=== PATIENT | female | born 1980 | race Caucasian/White ===

== ENCOUNTER 2017-01-30 20:30 | Emergency (ER) | payer OTHER ==
[~2017-01-30] VITALS: Ht 167.6 cm; Wt 82.3 kg
[~2017-01-30 20:30] MED LIST: ESTRADIOL1 EACH TD; EXCEDRIN MIGRA1 EAC2 PO; GUMMI BEAR MUL1 EACH PO; LEXAPRO10 MG PO; MAXALT10 MG PO; MOTRIN IB200 MG PO; NAPROXEN500 MG PO; NORCO 5-325 TA1 EACH PO; PERCOCET 5-3251 EACH PO; QUASENSE1 EACH PO; TRAMADOL HCL50 MG PO
[2017-01-30] MEDS ORDERED: LEXAPRO10 MG PO (20:54)
--- OUTSIDE RECORDS SUMMARY | 2017-01-30 21:17 | XMS ---
Demographics + + + | Address | [address] | | | [place] [address] | + + + | Preferred Language | Unknown | + + + | Marital Status | Unknown | + + + | Gnosticism Affiliation | Unknown | + + + | Race | Unknown | + + + | Ethnic Group | Unknown | + + + Author + + + | Author | [facility] | + + + | Organization | [facility] | + + + | Address | [address] | | | [place] [address] | + + + | Phone | | + + + Care Team Providers + + + + | Care Inserter Promotional Item Name | Role | Phone | + + + + Unavailable | Unavailable | + + + + PROBLEMS +---------+ + + +--------+ + + | Type | Condition | ICD9-CM | [id number] | Onset | Condition | SNOMED | | | | Code | Code | Dates | Status | Code | +---------+ + + +--------+ + + | Problem | Encounter | Z34.90 | | | Active | [id number] | | | for | | | | | | | | supervisio | | | | | | | | n of | | | | | | | | normal | | | | | | | | | | | | | | +---------+ + + +--------+ + + | Problem | Adnexal | N94.9 | | | Active | [id number] | | | mass | | | | | | +---------+ + + +--------+ + + | Problem | Abnormal | N93.9 | | | Active | [id number] | | | uterine | | | | | 9100 | | | bleeding | | | | | | +---------+ + + +--------+ + + ALLERGIES Unknown Allergies SOCIAL HISTORY No smoking Hx information available PLAN OF CARE VITAL SIGNS MEDICATIONS Unknown Medications RESULTS No Results PROCEDURES No Known procedures IMMUNIZATIONS No Known Immunizations"
--- OUTSIDE RECORDS SUMMARY | 2017-01-30 21:17 | XMS ---
Demographics + + + | Address | [address] | | | [place] [address] | + + + | Preferred Language | Unknown | + + + | Marital Status | Unknown | + + + | Yazidism Affiliation | Unknown | + + + | Race | Unknown | + + + | Ethnic Group | Unknown | + + + Author + + + | Author | [facility] | + + + | Organization | [facility] | + + + | Address | [address] | | | [place] [address] | + + + | Phone | | + + + Care Team Providers + + + + | Care Business Assistant Name | Role | Phone | + + + + Unavailable | Unavailable | + + + + PROBLEMS +---------+ + + +--------+ + + | Type | Condition | ICD9-CM | VRZ73-JB | Onset | Condition | SNOMED | | | | Code | Code | Dates | Status | Code | +---------+ + + +--------+ + + | Problem | Adnexal | N94.9 | | | Active | [id number] | | | mass | | | | | | +---------+ + + +--------+ + + | Problem | Abnormal | N93.9 | | | Active | [id number] | | | uterine | | | | | 9100 | | | bleeding | | | | | | +---------+ + + +--------+ + + ALLERGIES Unknown Allergies SOCIAL HISTORY No smoking Hx information available PLAN OF CARE VITAL SIGNS MEDICATIONS Unknown Medications RESULTS No Results PROCEDURES No Known procedures IMMUNIZATIONS No Known Immunizations"
--- OUTSIDE RECORDS SUMMARY | 2017-01-30 21:17 | XMS ---
Demographics + + + | Address | [address] | | | [place] [address] | + + + | Preferred Language | Unknown | + + + | Marital Status | Unknown | + + + | Uatsdin Affiliation | Unknown | + + + | Race | Unknown | + + + | Ethnic Group | Unknown | + + + Author + + + | Author | [facility] | + + + | Organization | [facility] | + + + | Address | [address] | | | [place] [address] | + + + | Phone | | + + + Care Team Providers + + + + | Care Er Rn Name | Role | Phone | + + + + Unavailable | Unavailable | + + + + PROBLEMS +---------+ + + +--------+ + + | Type | Condition | ICD9-CM | [id number] | Onset | Condition | SNOMED | | | | Code | Code | Dates | Status | Code | +---------+ + + +--------+ + + | Problem | Encounter | Z34.90 | | | Active | [id number] | | | for | | | | | | | | supervisio | | | | | | | | n of | | | | | | | | normal | | | | | | | | | | | | | | +---------+ + + +--------+ + + | Problem | Adnexal | N94.9 | | | Active | [id number] | | | mass | | | | | | +---------+ + + +--------+ + + | Problem | Abnormal | N93.9 | | | Active | [id number] | | | uterine | | | | | 9100 | | | bleeding | | | | | | +---------+ + + +--------+ + + ALLERGIES Unknown Allergies SOCIAL HISTORY No smoking Hx information available PLAN OF CARE VITAL SIGNS MEDICATIONS Unknown Medications RESULTS No Results PROCEDURES No Known procedures IMMUNIZATIONS No Known Immunizations"
--- OUTSIDE RECORDS SUMMARY | 2017-01-30 21:17 | XMS ---
Demographics + + + | Address | [address] | | | [place] [address] | + + + | Preferred Language | Unknown | + + + | Marital Status | Unknown | + + + | Synagogue Affiliation | Unknown | + + + | Race | Unknown | + + + | Ethnic Group | Unknown | + + + Author + + + | Author | [facility] | + + + | Organization | [facility] | + + + | Address | [address] | | | [place] [address] | + + + | Phone | | + + + Care Team Providers + + + + | Care Caser Shoe Parts Name | Role | Phone | + + + + Unavailable | Unavailable | + + + + PROBLEMS +---------+ + + +--------+ + + | Type | Condition | ICD9-CM | PRR01-TG | Onset | Condition | SNOMED | | | | Code | Code | Dates | Status | Code | +---------+ + + +--------+ + + | Problem | Encounter | Z34.90 | | | Active | [id number] | | | for | | | | | | | | supervisio | | | | | | | | n of | | | | | | | | normal | | | | | | | | | | | | | | +---------+ + + +--------+ + + | Problem | Adnexal | N94.9 | | | Active | 360748861 | | | mass | | | | | | +---------+ + + +--------+ + + | Problem | Abnormal | N93.9 | | | Active | [id number] | | | uterine | | | | | 9100 | | | bleeding | | | | | | +---------+ + + +--------+ + + ALLERGIES Unknown Allergies SOCIAL HISTORY No smoking Hx information available PLAN OF CARE VITAL SIGNS MEDICATIONS Unknown Medications RESULTS No Results PROCEDURES No Known procedures IMMUNIZATIONS No Known Immunizations"
--- OUTSIDE RECORDS SUMMARY | 2017-01-30 21:17 | XMS ---
Demographics + + + | Address | [address] | | | [place] [address] | + + + | Preferred Language | Unknown | + + + | Marital Status | Unknown | + + + | Faith Affiliation | Unknown | + + + | Race | Unknown | + + + | Ethnic Group | Unknown | + + + Author + + + | Author | [facility] | + + + | Organization | [facility] | + + + | Address | [address] | | | [place] [address] | + + + | Phone | | + + + Care Team Providers + + + + | Care Apartment Property Manager Name | Role | Phone | + + + + Unavailable | Unavailable | + + + + PROBLEMS +---------+ + + +--------+ + + | Type | Condition | ICD9-CM | CPS10-AS | Onset | Condition | SNOMED | | | | Code | Code | Dates | Status | Code | +---------+ + + +--------+ + + | Problem | Encounter | Z34.90 | | | Active | [id number] | | | for | | | | | | | | supervisio | | | | | | | | n of | | | | | | | | normal | | | | | | | | | | | | | | +---------+ + + +--------+ + + | Problem | Adnexal | N94.9 | | | Active | 000082275 | | | mass | | | | | | +---------+ + + +--------+ + + | Problem | Abnormal | N93.9 | | | Active | [id number] | | | uterine | | | | | 9100 | | | bleeding | | | | | | +---------+ + + +--------+ + + ALLERGIES Unknown Allergies SOCIAL HISTORY No smoking Hx information available PLAN OF CARE VITAL SIGNS MEDICATIONS Unknown Medications RESULTS No Results PROCEDURES No Known procedures IMMUNIZATIONS No Known Immunizations"
--- OUTSIDE RECORDS SUMMARY | 2017-01-30 21:17 | XMS ---
Demographics + + + | Address | [address] | | | [place] [address] | + + + | Preferred Language | Unknown | + + + | Marital Status | Unknown | + + + | Protestant Affiliation | Unknown | + + + | Race | Unknown | + + + | Ethnic Group | Unknown | + + + Author + + + | Author | [facility] | + + + | Organization | [facility] | + + + | Address | [address] | | | [place] [address] | + + + | Phone | | + + + Care Team Providers + + + + | Care Associate Financial Analyst Name | Role | Phone | + + + + Unavailable | Unavailable | + + + + PROBLEMS +---------+ + + +--------+ + + | Type | Condition | ICD9-CM | AFC72-AO | Onset | Condition | SNOMED | | | | Code | Code | Dates | Status | Code | +---------+ + + +--------+ + + | Problem | Encounter | Z34.90 | | | Active | [id number] | | | for | | | | | | | | supervisio | | | | | | | | n of | | | | | | | | normal | | | | | | | | | | | | | | +---------+ + + +--------+ + + | Problem | Adnexal | N94.9 | | | Active | 460951904 | | | mass | | | | | | +---------+ + + +--------+ + + | Problem | Abnormal | N93.9 | | | Active | [id number] | | | uterine | | | | | 9100 | | | bleeding | | | | | | +---------+ + + +--------+ + + ALLERGIES Unknown Allergies SOCIAL HISTORY No smoking Hx information available PLAN OF CARE VITAL SIGNS MEDICATIONS Unknown Medications RESULTS No Results PROCEDURES No Known procedures IMMUNIZATIONS No Known Immunizations"
== END 2017-01-30 22:26 | disposition home or self-care (01) ==
LOC: ED 20:30
DX: O20.0 Threatened abortion (principal); Z3A.11 11 weeks gestation of pregnancy; F17.200 Nicotine dependence, unspecified, uncomplicated; Z87.442 Personal history of urinary calculi; Z91.038 Other insect allergy status; Z88.8 Allergy status to other drugs, medicaments and biological substances; Z79.899 Other long term (current) drug therapy; Z90.721 Acquired absence of ovaries, unilateral
CPT/HCPCS: 76801; 84702; 85025; 99284

== ENCOUNTER 2017-08-21 00:01 | Inpatient (IN) | payer OTHER ==
[~2017-08-21] VITALS: Ht 168.9 cm; Wt 91.0 kg
--- OUTSIDE RECORDS SUMMARY | ~2017-08-21 | XMS ---
Demographics + + + | Address | [address] | | | [place] [address] | + + + | Preferred Language | Unknown | + + + | Marital Status | Unknown | + + + | Gnosticist Affiliation | Unknown | + + + | Race | Unknown | + + + | Ethnic Group | Unknown | + + + Author + + + | Author | [facility] | + + + | Organization | [facility] | + + + | Address | [address] | | | [place] [address] | + + + | Phone | | + + + Care Team Providers + + + + | Care Bible Reader Name | Role | Phone | + + + + Unavailable | Unavailable | + + + + PROBLEMS +---------+ + + +--------+ + + | Type | Condition | ICD9-CM | GSW94-AI | Onset | Condition | SNOMED | | | | Code | Code | Dates | Status | Code | +---------+ + + +--------+ + + | Problem | Encounter | Z34.90 | | | Active | [id number] | | | for | | | | | | | | supervisio | | | | | | | | n of | | | | | | | | normal | | | | | | | | | | | | | | +---------+ + + +--------+ + + | Problem | Adnexal | N94.9 | | | Active | [id number] | | | mass | | | | | | +---------+ + + +--------+ + + | Problem | Abnormal | N93.9 | | | Active | [id number] | | | uterine | | | | | 9100 | | | bleeding | | | | | | +---------+ + + +--------+ + + ALLERGIES Unknown Allergies SOCIAL HISTORY No smoking Hx information available PLAN OF CARE VITAL SIGNS MEDICATIONS Unknown Medications RESULTS No Results PROCEDURES No Known procedures IMMUNIZATIONS No Known Immunizations"
--- OUTSIDE RECORDS SUMMARY | ~2017-08-21 | XMS ---
Demographics + + + | Address | [address] | | | [place] [address] | + + + | Preferred Language | Unknown | + + + | Marital Status | Unknown | + + + | Orthodox Affiliation | Unknown | + + + | Race | Unknown | + + + | Ethnic Group | Unknown | + + + Author + + + | Author | [facility] | + + + | Organization | [facility] | + + + | Address | [address] | | | [place] [address] | + + + | Phone | | + + + Care Team Providers + + + + | Care Field Return Repairer Name | Role | Phone | + + + + Unavailable | Unavailable | + + + + PROBLEMS +---------+ + + +--------+ + + | Type | Condition | ICD9-CM | ZCP27-ZJ | Onset | Condition | SNOMED | | | | Code | Code | Dates | Status | Code | +---------+ + + +--------+ + + | Problem | Encounter | Z34.90 | | | Active | [id number] | | | for | | | | | | | | supervisio | | | | | | | | n of | | | | | | | | normal | | | | | | | | | | | | | | +---------+ + + +--------+ + + | Problem | Adnexal | N94.9 | | | Active | 969147093 | | | mass | | | | | | +---------+ + + +--------+ + + | Problem | Abnormal | N93.9 | | | Active | [id number] | | | uterine | | | | | 9100 | | | bleeding | | | | | | +---------+ + + +--------+ + + ALLERGIES Unknown Allergies SOCIAL HISTORY No smoking Hx information available PLAN OF CARE VITAL SIGNS MEDICATIONS Unknown Medications RESULTS No Results PROCEDURES No Known procedures IMMUNIZATIONS No Known Immunizations"
--- OUTSIDE RECORDS SUMMARY | ~2017-08-21 | XMS ---
Demographics + + + | Address | [address] | | | [place] [address] | + + + | Preferred Language [...] | + + + | Organization | [facility] | + + + | Address | [address] | | | [place] [address] | + + + | Phone | | + + + Care Team Providers + + + + | Care Canvas Repairer Name | Role | Phone | + + + + Unavailable | Unavailable | + + + + PROBLEMS +---------+ + + +--------+ + + | Type | Condition | ICD9-CM | IQQ74-BF | Onset | Condition | SNOMED | | | | Code | Code | Dates | Status | Code | +---------+ + + +--------+ + + | Problem | Encounter | Z34.90 | | | Active | [id number] | | | for | | | | | | | | supervisio | | | | | | | | n of | | | | | | | | normal | | | | | | | | | | | | | | +---------+ + + +--------+ + + | Problem | Adnexal | N94.9 | | | Active | [id number] | | | mass | | | | | | +---------+ + + +--------+ + + | Problem | Abnormal | N93.9 | | | Active | [id number] | | | uterine | | | | | 9100 | | | bleeding | | | | | | +---------+ + + +--------+ + + ALLERGIES No Information SOCIAL HISTORY Never Assessed PLAN OF CARE VITAL SIGNS MEDICATIONS Unknown Medications RESULTS No Results PROCEDURES No Known procedures IMMUNIZATIONS No Known Immunizations MEDICAL (GENERAL) HISTORY + + +--------+ | Type | Description | Date | + + +--------+ | Medical History | Headaches (Menstrual | | | | migraines) | | + + +--------+ | Medical History | fibromyalgia | | + + +--------+ | Medical History | History of Herpes | | | | (outbreaks every couple | | | | months) | | + + +--------+ | Surgical History | knee arthroscopy (Left) | 2013 | + + +--------+ | Surgical History | knee arthroscopy (Right) | 2014 | + + +--------+ | Surgical History | D&C (Suction) | 09/2016 | + + +--------+"
[2017-08-21] MEDS ORDERED: TYLENOL EXTRA500 MG PO (05:52)
[2017-08-21] MEDS ORDERED: ZOVIRAX400 MG PO (05:53)
--- NOTE | 2017-08-21 08:40 | PR ---
[facility] [address] [place], [place] [address] Signed Progress Notes IP Datetime Report Generated by CPN: 08/21/2017 08:40 PROGRESS NOTES: [id number] Impression: Normal progression of labor Procedures: Intrauterine Pressure Catheter Plan: Continue present management VITAL SIGNS: [id number] Vital Signs: Reviewed; Within Normal Limits EXAM: [id number] Dilatation: 3.0 Effacement: 60 Station: -3 Uterine Contractions: every 2-5 minutes MEMBRANES: [id number] Membrane Status: Ruptured Amniotic Fluid Color: Meconium, Light ROM Note: AROM without difficulty, large amount thin meconium fluid. Comments: IUPC inserted, given O2, moved back to left side; doing better now Fetus A: [id number] FHR Baseline: 145 Variability: Moderate 6-25bpm Decelerations: Late; Variable Presentation: Vertex Comments on Fetus A: occasional decels Fetus B: [id number] Signing Physician: Angela Navarro MD Copies: ~ *Electronically Signed* 08/21/17 0840 ANGELA NAVARRO MD PATIENT NAME: BAZANANNE MARIE PROGRESS NOTE DATE OF : 78 PHYSICIAN: ANGELA NAVARRO MD RPT #: [id number] REPORT IS CONFIDENTIAL AND NOT TO BE RELEASED WITHOUT AUTHORIZATION
--- NOTE | 2017-08-21 10:55 | NUR ---
08/21/17 Wei5 Nelly Cárdenas 1045 PT ARRIVED AWAKE AND TALKING. DENIES PAIN AND NAUSEA. BABY TO CHEST WITH FBC RN AT BEDSIDE. VSS. SPINAL LEVEL AT L1. MINIMAL BLEEDING NOTED ON RISHABH PAD. RESP EVEN AND UNLABORED. IV INFUSING IN RIGHT WRIST WITH LR WITH 20 OF PIT.
--- NOTE | 2017-08-23 10:23 | PR ---
[facility] [place] [facility] [address] [place] [address] Signed PP Progress Notes Datetime Report Generated by CPN: 08/23/2017 10:23 SUBJECTIVE: [id number] Pain: Within normal limits Nausea/Vomiting: Denies Vital Signs: [id number] Vital Signs: Reviewed; Within Normal Limits Notable Details: PP Hgb/Hct = 10.1/29.1 EXAM: [id number] Abdomen/Uterus: Normal Lochia: Normal Extremities: Normal Incision: Normal IMPRESSION/PLAN/PROCEDURES: [id number] Impression: Normal progression Plan: Discharge Procedures: None Progress Notes: Doing well, wants to go home Signing Physician: Angela Navarro MD Copies: ~ *Electronically Signed* 08/23/17 1023 ANGELA NAVARRO MD PATIENT NAME: ANNE MARIE BAZAN PROGRESS NOTE DATE OF : 78 PHYSICIAN: ANGELA NAVARRO MD RPT #: [id number] REPORT IS CONFIDENTIAL AND NOT TO BE RELEASED WITHOUT AUTHORIZATION
--- NOTE | 2017-08-30 09:54 | OR ---
[facility] [address] [facility] [place] [address] Signed DATE OF OPERATION: 08/21/2017 SURGEON: Lonnie Almendarez MD PREOPERATIVE DIAGNOSES: Term , nonreassuring heart rate tracing, meconium and bradycardia. POSTOPERATIVE DIAGNOSES: Term , nonreassuring heart rate tracing, meconium and bradycardia. PROCEDURE: Primary low-transverse segment section. Delivery of live male . DEVELOPMENT GEOLOGIST: Melanie Carlson MD. ANESTHESIA: Epidural. ESTIMATED BLOOD LOSS: 750 mL. COMPLICATIONS: None. DRAINS: Weaver to bladder. FINDINGS: Live male , Apgars 8 and 9, weight 6 pounds 10 ounces. The baby was in vertex presentation with the cord wrapped around the foot and leg several times. There was anterior placenta. Normal uterus. Normal tubes and ovaries bilateral. DESCRIPTION OF PROCEDURE: The patient was brought to the operating room, placed in supine position. After adequate epidural anesthesia was obtained, she was prepped and draped in usual sterile fashion. A Pfannenstiel skin incision was made with a scalpel extended through the subcutaneous tissue with the scalpel and blunt dissection. The fascia was nicked with scalpel and extended in transverse fashion using curved scissors. The underlying abdominal musculature was bluntly and sharply from the fascia above and below the Electronically Signed By: LONNIE ALMENDAREZ MD 08/30/17 0954 PATIENT NAME: ANNE MARIE CORMIER OPERATIVE REPORT DATE OF : 78 REPORT #: [id number] PHYSICIAN: LONNIE ALMENDAREZ MD PCP: TONY TREVINO MD REPORT IS CONFIDENTIAL AND NOT TO BE RELEASED WITHOUT AUTHORIZATION [facility] [address] [place], [place] [address] Signed incision. The abdominal musculature was bluntly and sharply along the midline. Peritoneum was bluntly entered and then incision extended with finger dissection. The Royer self-retaining retractor was inserted into the incision and tightened in place. Lower uterine segment was identified and noted to be quite thin, but narrow lower down, so just slightly elevated the lower uterine segment. Skin incision was made with a scalpel. Allis Catron clamps were used to grasp the edges and elevate the lower uterine segment to help avoid the baby because of the thin lower segment and finger dissection opened the incision, which was then extended with finger dissection in transverse fashion. The infant was noted to be in vertex presentation. The 's head was delivered from the incision. The arms individually delivered and the rest of the infant easily delivered from the incision. Cord was noted to be wrapped around the leg and foot several times. This was unwrapped and removed. The cord was doubly clamped and cut. The infant's mouth and nose were gently suctioned with a bulb syringe. The was crying vigorously, passed off the table in good condition to awaiting ethanol operations manager. Cord gases were obtained. Placenta was already coming from the incisions, so the rest of the placenta was removed and uterine cavity explored a lap pad to remove any retained membranes. An angle stitch of 0 Monocryl was placed at one end of the incision and a running locking stitch of 0 Monocryl starting at the other end was used to close the incision. Before finishing closure, the right angle was noted to have excess bleeding. This was controlled with a ggnpgd-tn-iuaxs stitch of 0 Monocryl. After the first closure, a second running stitch of 0 Monocryl was used to imbricate the first layer. There was a small amount of bleeding in the left angle, which was controlled with an extra stitch of Monocryl and one in the midline also requiring xhvhwr-qk-elmzg stitch of 0 Monocryl. At this point, good hemostasis was noted. The entire pelvis was irrigated, suctioned and examined. Few superficial bleeding spots on the uterus were cauterized with the Bovie. Good hemostasis was obtained. The Royer retractor was removed and sheet of ACell placed over the lower uterine segment to help with healing. The anterior wall peritoneum was closed using running stitch of 2-0 Vicryl suture. The abdominal musculature was closed using interrupted stitches of 0 Vicryl suture. There was 1 perforating vessel in the upper fascia that was bleeding. This was controlled with a aemexo-pu-yqzhq stitch of 0 Vicryl suture. The entire pelvis was irrigated, suctioned, examined and superficial bleeding spots cauterized with the Bovie. When good hemostasis was obtained, powdered ACell was sprinkled over the abdominal musculature to help with healing. Then, the fascia closed using 2 running stitch of 0 Vicryl suture meeting in the midline. Subcutaneous tissue was irrigated, suctioned, examined and any bleeding spots cauterized with the Bovie. Subcutaneous tissue was then closed using interrupted stitches of 3-0 Vicryl suture and the skin reapproximated using skin clips. The patient tolerated the procedure well and went to recovery room in good condition. Sponge, needle, and instrument count were correct at the end of the procedure. Cord gases were sent to the lab and the placenta sent to pathology. Electronically Signed By: LONNIE ALMENDAREZ MD 08/30/17 0954 PATIENT NAME: ANNE MARIE CORMIER OPERATIVE REPORT DATE OF : 78 REPORT #: [id number] PHYSICIAN: LONNIE ALMENDAREZ MD PCP: TONY TREVINO MD REPORT IS CONFIDENTIAL AND NOT TO BE RELEASED WITHOUT AUTHORIZATION [address] [place] [address] Signed Lonnie Almendarez MD MJB/MODL /[id number] cc: Tony Trevino MD Copies: TONY TREVINO MD ~ Electronically Signed By: LONNIE ALMENDAREZ MD 08/30/17 0954 PATIENT NAME: LUNA ANNE MARIE BAZAN OPERATIVE REPORT DATE OF : 78 REPORT #: [id number] PHYSICIAN: LONNIE ALMENDAREZ MD PCP: TONY TREVINO MD REPORT IS CONFIDENTIAL AND NOT TO BE RELEASED WITHOUT AUTHORIZATION
== END 2017-08-23 13:05 | disposition home or self-care (01) | DRG 766 ==
LOC: FBC 00:01
PROVIDERS: ADMIT General Practice
PROC: 10D00Z1 Extraction of Products of Conception, Low, Open Approach (ICD-10-PCS; principal; 2017-08-21 09:49)
DX: O76 Abnormality in fetal heart rate and rhythm complicating labor and delivery (principal); O77.0 Labor and delivery complicated by meconium in amniotic fluid; Z3A.39 39 weeks gestation of pregnancy; Z37.0 Single live birth; O99.334 Smoking (tobacco) complicating childbirth; F17.210 Nicotine dependence, cigarettes, uncomplicated; O99.344 Other mental disorders complicating childbirth; F32.9 Major depressive disorder, single episode, unspecified
CPT/HCPCS: 01960; 01961; 36415; 82803; 85027; C1763; J1644; J2270; J2274; J2405; J2590; J3010; J7040; J7120

== ENCOUNTER 2019-03-20 05:13 | Emergency (ER) | payer OTHER ==
[~2019-03-20] VITALS: Ht 170.2 cm; Wt 88.5 kg
--- OUTSIDE RECORDS SUMMARY | ~2019-03-20 | XMS | Clinical Summary ---
Demographics + + + | Address | [address] | | | [place] [address] | + + + | Home Phone | | + + + | Preferred Language | Unknown | + + + | Marital Status | | + + + | Jainism Affiliation | 1013 | + + + | Race | Unknown | + + + | Ethnic Group | Unknown | + + + Author + + + | Author | [facility] | | | and [place] | + + + | Organization | [facility] | | | and [place] | + [...] Team Providers + +------+ + | Care Rehabilitation Tech Name | Role | Phone | + [...]
--- OUTSIDE RECORDS SUMMARY | ~2019-03-20 | XMS | Clinical Summary ---
Demographics + + + | Address | [address] | | | [place] [address] | + + + | Home Phone | | + + + | Preferred Language | Unknown | + + + | Marital Status | | + + + | Moravian Affiliation | 1013 | + + + | Race | Unknown | + + + | Ethnic Group | Unknown | + + + Author + + + | Author | [facility] | | | and [place] | + + + | Organization | [facility] | | | [...] Team Providers + +------+ + | Care Roofing Layer Name | Role | Phone | + [...]
--- OUTSIDE RECORDS SUMMARY | ~2019-03-20 | XMS | Clinical Summary ---
Demographics + + + | Address | [address] | | | [place] [address] | + + + | Home Phone | | + + + | Preferred Language | Unknown | + + + | Marital Status | | + + + | Alevism Affiliation | 1013 | + + + | Race | Unknown | + + + | Ethnic Group | Unknown | + + + Author + + + | Author | [facility] [employer] (Historical as of | | | 02-02-19) | + + + | Organization | [facility] [employer] (Historical as of | | | 02-02-19) | + + + | Address | Unknown | + + + | Phone | Unavailable | + + + Support + + + + + | Name | Relationship | Address | Phone | + + + + + | Elton Bach | ECON | [address] | | | | | [place] | | | | | [address] | | + + + + + Care Team Providers + +------+ + | Care Storage Architect Name | Role | Phone | [...] +------+-------+ + | MEDICAID | MEDICA | [id number] | | | [address] | | | ID | | | | [place] | | | [place] | | | | [address] | + +--------+ +------+-------+ + + +--------+ +--------+ + + | Guarantor Name | Accoun | Relation to | Date | Phone | Billing Address | | | t Type | Patient | of | | | | | | | | | | + +--------+ +--------+ + + | MARCIE BACH | Person | Self | [birth year] | Home: | [address] | | | [place] | | 1979 | [phone] | [place] | | | [place] | | | [phone] | [phone] | + +--------+ +--------+ + +
--- OUTSIDE RECORDS SUMMARY | ~2019-03-20 | XMS | Clinical Summary ---
Demographics + + + | Address | [address] | | | [place] [address] | + + + | Home Phone | | + + + | Preferred Language | Unknown | + + + | Marital Status | | + + + | Buddhism Affiliation | 1013 | + + + | Race | Unknown | + + + | Ethnic Group | Unknown | + + + Author + + + | Author | [employer] (Historical as of | | | 02-02-19) | + + + | Organization | [facility] [employer] (Historical as of | | | 02-02-19) | + + + | Address | Unknown | + + + | Phone | Unavailable | + + + Support + + + + + | Name | Relationship | Address | Phone | + + + + + | Elton Bach | ECON | [address] | | | | | [place] | | | | | [phone] | | + + + + + Care Team Providers + +------+ + | Care Swimming Pool Plasterer Helper Name | Role | Phone | + [...] +------+-------+ + | MEDICAID | MEDICA | [id number] | | | [address] | | | ID | | | | [place] | | | [place] | | | | [phone] | + +--------+ +------+-------+ + + +--------+ +--------+ + + | Guarantor Name | Accoun | Relation to | Date | Phone | Billing Address | | | t Type | Patient | of | | | | | | | | | | + +--------+ +--------+ + + | MARCIE BACH | Person | Self | [birth year] | Home: | [address] | | | [place] | | 1979 | [phone] | [place] | | | [place] | | | [phone] | [phone] | + +--------+ +--------+ + +
[~2019-03-20 05:13] MED LIST changes: +RIZATRIPTAN10 MG PO; +TYLENOL EXTRA500 MG PO; +ZOVIRAX400 MG PO
[2019-03-20] MEDS ORDERED: PRENATABS FA T1 EACH PO (05:23)
[2019-03-21] MEDS ORDERED: TYLENOL325 MG PO (09:55)
[2019-03-21] MEDS ORDERED: GABAPENTIN300 MG PO (10:08)
[2019-03-21] MEDS ORDERED: ESCITALOPRAM OX20 MG PO (17:04)
[2019-03-21] MEDS ORDERED: NORCO 5-325 TA1 EACH PO (17:08)
== END 2019-03-20 09:42 | disposition home or self-care (01) ==
LOC: ED 05:13
DX: O20.9 Hemorrhage in early pregnancy, unspecified (principal); F17.200 Nicotine dependence, unspecified, uncomplicated; Z87.442 Personal history of urinary calculi; Z91.030 Bee allergy status; Z88.8 Allergy status to other drugs, medicaments and biological substances; Z79.899 Other long term (current) drug therapy; Z3A.01 Less than 8 weeks gestation of pregnancy
CPT/HCPCS: 76801; 76817; 84702; 85025; 99284-25

== ENCOUNTER 2019-03-21 09:44 | Observation (INO) | payer OTHER ==
[~2019-03-21] VITALS: Ht 170.2 cm; Wt 88.5 kg
--- OUTSIDE RECORDS SUMMARY | ~2019-03-21 | XMS | Clinical Summary ---
Demographics + + + | Address | [address] | | | [place] [address] | + + + | Home Phone | | + + + | Preferred Language | Unknown | + + + | Marital Status | | + + + | Gnosticism Affiliation | 1013 | + + + | Race | Unknown | + + + | Ethnic Group | Unknown | + + + Author + + + | Author | [facility] | | | and [place] | + + + | Organization | [facility] | | | [...] Team Providers + +------+ + | Care Induction Heating Equipment Setter Name | Role | Phone | + [...]
--- OUTSIDE RECORDS SUMMARY | ~2019-03-21 | XMS | Clinical Summary ---
Demographics + + + | Address | [address] | | | [place] [address] | + + + | Home Phone | | + + + | Preferred Language | Unknown | + + + | Marital Status | | + + + | Rastafari Affiliation | 1013 | + + + | Race | Unknown | + + + | Ethnic Group | Unknown | + + + Author + + + | Author | [employer] (Historical as of | | | 02-02-19) | + + + | Organization | [facility] (Historical as of | | | 02-02-19) | + + + | Address | Unknown | + + + | Phone | Unavailable | + + + Support + + + + + | Name | Relationship | Address | Phone | + + + + + | Elton Bach | ECON | [address] | | | | | [place] | | | | | [address] | | + + + + + Care Team Providers + +------+ + | Care Shuttle Preparation Supervisor Name | Role | Phone | [...] | Vaccine: | | | | | Pneumococcal 19-64 | 8 | | | | (PPSV23 only) Medium | | | | | Risk (1 of 1 - | | | | | PPSV23) | | | | + + + [...] +------+-------+ + | MEDICAID | MEDICA | [id number] | | | [address] | | | ID | | | | [place] | | | [place] | | | | [phone] | + +--------+ +------+-------+ + + +--------+ +--------+ + + | Guarantor Name | Accoun | Relation to | Date | Phone | Billing Address | | | t Type | Patient | of | | | | | | | | | | + +--------+ +--------+ + + | MARCIE BACH | Person | Self | [birth year] | Home: | [address] | | | [place] | | 1979 | [phone] | [place] | | | [place] | | | [phone] | [phone] | + +--------+ +--------+ + +
[~2019-03-21 09:44] MED LIST changes: +PRENATABS FA T1 EACH PO
[2019-03-21] MEDS ORDERED: TYLENOL325 MG PO (09:55)
[2019-03-21] MEDS ORDERED: GABAPENTIN300 MG PO (10:08)
--- NOTE | 2019-03-21 10:30 | NUR ---
PT ARRIVED FROM DR. NAVARRO'S OFFICE FOR POSSIBLE EPTOPIC . PT CHANGES SELF INTO GOWN AND IS INDEPENDANT IN ROOM. STEADY ON FEET. PT REPORTS 8/10 CRAMPING PAIN. PIV STARTED, LABS DRAWN. ASSESSMENT DONE. NO RATE ON FLUIDS. MD CONSULTED. ORDERS CLARIFIED. BOLUS STARTED. ULTRASOUND TECHNITIAN WAITING FOR CALL WHEN PTS HAS FULL BLADDER. PT KNITTING. NO ADDITIONAL REQUESTS OR COMPLAINTS AT THIS TIME. CALL LIGHT WITHIN REACH.
--- NOTE | 2019-03-21 11:21 | NUR ---
PT CALL LIGHT ON. PT REPORTS SHE FEELS THAT HER BLADDER IS FULL. IMAGING CONTACTED FOR ULTRASOUND. THIS RN TO BEDSIDE. ORTHOSTATIC VITAL SIGNS TAKEN. PT NEEDED TO SIT DOWN DURING 3 MINUTE STANDING VITAL SIGNS SHE "FELT LIKE THE ROOM WAS SPINNING." PT TRANSFERED SELF TO WHEELCHAIR WITH SBA. PT TO IMAGING DEPARTMENT.
--- NOTE | 2019-03-21 11:26 | NUR ---
MD UPDATED ON PT CONDITION, ORTHOSTATIC VITAL SIGNS, LABS AND PTS PAIN RAITING. NO NEW ORDERS AT THIS TIME. REQUESTS A CALL BACK WHEN PT RETURNS FROM IMAGING.
--- NOTE | 2019-03-21 11:58 | NUR ---
PT BACK FROM ULTRASOUND. PT CONTINUES TO REPORT DIZZINESS. PT REPORTS 7/10 CRAMPING PAIN. WARM PACK PROVIDED. MD CALLED WITH UPDATE PER REQUEST. NO ADDITIONAL REQUESTS OR COMPLAINTS AT THIS TIME. CALL LIGHT WITHIN REACH.
--- NOTE | 2019-03-21 12:32 | NUR ---
THIS RN TO ROOM WITH MD FOR ROUNDS. PLAN FOR SURGERY TODAY. QUALITY CONTROL AUDITOR TO ROOM WITH DANIEL WIPES FOR WIPE DOWN. NO ADDITIONAL REQUESTS ORCOMPALITNS AT THIS TIME.
--- NOTE | 2019-03-21 12:48 | NUR ---
TO ROOM TO UPDATE PT. CONSENT FOR SURGERY SIGNED. OR FLUIDS HUNG. PRE PROCEEDURES CHECK LIST COMPLETED. PT REMOVES EARINGS AND CONTACTS. NONA LOGISTICS TECHNICIAN, HERE TO MEDICAL LAB SCIENTIST PT. NONA STATES NO CHG WIPE DOWN NEEDED. WIPE DOWN NOT COMPLETE. PT UP TO VOID. DIZZY AT TIMES. PT TO OR WITH MARY CASTELLANO.
--- NOTE | 2019-03-21 13:21 | NUR ---
PATIENT IN SURGERY. I&O DONE.
--- NOTE | 2019-03-21 14:40 | NUR ---
03/21/19 1440 Merna Lee 1408- PT ARRIVES TO PACU WITH AN OPA IN PLACE. PT'S RESP EVEN AND UNLABORED. OXYGEN SAT HIGH 90'S TO 100% ON 6L VIA MASK. PT SUCTIONED ON ARRIVAL BY BEBETO LAZARO CRNA. 1409- PT OPENS EYES. OPA REMOVED BY BEBETO LAZARO CRNA. PT IS NOT FOLLOWING COMMANDS AT THIS TIME AND SQUIRMING IN THE BED. 1425- PT EATING ICE CHIPS. TOLERATING WELL.
--- NOTE | 2019-03-21 15:06 | NUR ---
PATIENT ARRIVED BACK TO ROOM AT 1455, REPORT RECIEVED FROM TILTING HEAD BAND SAWYER KAYLYNN. PATIENT HAS X3 ABD SCOPE SITES COVERED WITH BANDAIDS, OLD DRAINAGE NOTED TO GOWN. PATIENT HAS MILD SEROUS VAGINAL SPOTTING ON LINENS, RISHABH PAD IN PLACE. PATIENT RATED ABD PAIN 7/10, DENIES NAUSEA.
--- NOTE | 2019-03-21 15:30 | NUR ---
PT RETURNED FROM PACU. PT REPORTS 8/10 PAIN. SEE MAR FOR MEDICATION GIVEN. FLUIDS STARTED (SEE MAR). ASSESSMENT DONE. SCD'S IN PLACE. PT TOLEARTING JELLO AND WATER AT THIS TIME. NO NAUSEA. CALL LIGHT WITHIN REACH. NO ADDITIONAL REQUESTS OR COMPLAINTS.
--- NOTE | 2019-03-21 16:10 | NUR ---
ASSESSMENT AND VITALS DUE. 1PA UP TO RESTROOM, SMALL AMOUNT OF RED DRAINAGE NOTED ON RISHABH PAD AND IN URINE. PT BACK TO BED. PT STEADY ON FEET. PT REPORTS 8/10 PAIN IN ABDOMEN. SEE MAR FOR MEDICATIONS GIVEN. PT TOELRATING CRACKERS AND JELLO, FOOD ORDER PLACED FOR PT. PT REQUESTS A NICOTENE PATCH. MD WILL BE CALLED AN UPDATED. NO ADDITIONAL REQUESTS OR COMPLAINS. CALL LIGHT WITHIN REACH.
--- NOTE | 2019-03-21 16:33 | NUR ---
CALLED AND UPDATED ON PT CONDITION. STATES HE WILL BE DOWN TO VISIT PT SOON.
--- NOTE | 2019-03-21 16:50 | OR ---
[facility] [address] [place], [place] [address] Signed DATE OF OPERATION: 03/21/2019 SURGEON: Lonnie Almendarez MD Patient of Dr. Almendarez. PREOPERATIVE DIAGNOSIS: First-trimester with pelvic pain and dizziness. POSTOPERATIVE DIAGNOSIS: First-trimester with pelvic pain and dizziness plus omental adhesions, left pelvic endometriosis and no evidence of tubal . PROCEDURE PERFORMED: Laparoscopy with lysis of omental adhesions. ROADSIDE MECHANIC: Dr. Thakur. ANESTHESIA: General. ESTIMATED BLOOD LOSS: 5 mL. SPECIMEN: None. DRAINS: None. FINDINGS: Vagina, slight blood. Cervix, thick and closed. No active bleeding. Uterus, normal size and shape. The anterior cul-de-sac was free of any endometriosis or adhesions. Posterior cul-de-sac was free of any blood or adhesions. Both fallopian tubes showed normal-appearing fimbriated end. No adhesions and no evidence of tubal along the entire length of each tube. The left ovary had evidence of endometriosis and was adherent to the left pelvic sidewall. There was also some deep endometriosis on the left pelvic sidewall caudal to the ovary. The right ovary appeared normal without any adhesions and showed a normal-appearing corpus luteum cyst. There were omental Electronically Signed By: LONNIE ALMENDAREZ MD 03/21/19 1650 PATIENT NAME: ANNE MARIE BAZAN OPERATIVE REPORT DATE OF : 78 REPORT #: [id number] PHYSICIAN: LONNIE ALMENDAREZ MD PCP: TONY TREVINO MD REPORT IS CONFIDENTIAL AND NOT TO BE RELEASED WITHOUT AUTHORIZATION [facility] [address] [place], [place] [address] Signed adhesions along the midline from just below the umbilicus to custodial to the symphysis. There was no bowel involved in the omental adhesions. No other masses or adhesions seen. COMPLICATIONS: None. DESCRIPTION OF OPERATION: The patient was brought into the operating room and placed in supine position. After adequate general anesthesia was obtained, she was prepped and draped in usual sterile fashion. A sponge stick was gently placed in the vagina and attention drawn to the abdomen. A skin incision was made with a scalpel after injecting the area with 0.25% Marcaine with epinephrine, 5 mm direct entry trocar and sleeve with the laparoscope attached was placed in the incision. The anterior abdominal wall elevated on both sides of the umbilicus and the trocar and sleeve entered the abdomen under direct visualization. Carbon dioxide was used to infuse the abdomen, was attached to the trocar so that as soon as the tip entered the abdomen, the gas would start flowing into the abdomen. Once the sleeve was in the abdomen, the trocar was removed and the 5 mm laparoscope placed through the sleeve. The above findings were noted. Two lateral ports were placed, one on each side and each one was placed after transilluminating the abdominal wall, injecting the area with 0.25% Marcaine with epinephrine making small skin incision and placing a 5 mm bladed trocar and sleeve through the abdominal wall under direct visualization. Each one was filled with balloon and trocar removed. The blunt graspers were placed through these twosleeves. The omental adhesions made visualizing the pelvis more difficult and so the omental adhesions were taken down with LigaSure bipolar [place] cautery forceps. With this taken down, the omentum was observed and noted to have good hemostasis. The entire pelvis was examined and the above findings noted. Care was taken to gently remove the uterus without trauma. No evidence of tubal was seen. No intraabdominal bleeding was noted and no attempt was made to dissect the deep endometriosis because of the . At this point, there was a minimal amount of bleeding in the infraumbilical incision, so this one was removed and with the laparoscope in the lateral incision, Amando-Coty fascial closure, probe was docked in the incision and 0 Vicryl placed through the fascia on either side under direct visualization and the fascia closed. The area was then observed and noted to have good hemostasis. The gas was allowed to escape from the abdomen and all instruments removed and the sleeve removed. Three skin incisions were closed using subcuticular stitches of 4-0 Vicryl. Sponge stick was removed from the vagina. The patient tolerated the procedure well and went to recovery room in good condition. Sponge, needle, and instrument counts were correct at the end of procedure. Electronically Signed By: LONNIE ALMENDAREZ MD 03/21/19 9727 PATIENT NAME: ANNE MARIE BAZAN OPERATIVE REPORT DATE OF : [birth year] REPORT #: [id number] PHYSICIAN: LONNIE ALMENDAREZ MD PCP: TONY TREVINO MD REPORT IS CONFIDENTIAL AND NOT TO BE RELEASED WITHOUT AUTHORIZATION [address] [address] Signed Lonnie Almendarez MD MJB/MODL /[id number] cc: Tony Trevino MD Copies: TONY TREVINO MD ~ Electronically Signed By: LONNIE ALMENDAREZ MD 03/21/19 1650 PATIENT NAME: ANNE MARIE BAZAN OPERATIVE REPORT DATE OF : [birth year] REPORT #: [id number] PHYSICIAN: LONNIE ALMENDAREZ MD PCP: TONY TREVINO MD REPORT IS CONFIDENTIAL AND NOT TO BE RELEASED WITHOUT AUTHORIZATION
[2019-03-21] MEDS ORDERED: ESCITALOPRAM OX20 MG PO (17:04)
[2019-03-21] MEDS ORDERED: NORCO 5-325 TA1 EACH PO (17:08)
--- NOTE | 2019-03-21 17:17 | NUR ---
MED REC COMPLETE
--- NOTE | 2019-03-21 17:32 | NUR ---
PATIENT SITTING UP IN BED. FINAL VITAL SIGNS WERE OBTAINED PRIOR TO DISCHARGE FROM THE UNIT
--- NOTE | 2019-03-21 17:34 | NUR ---
PT READY FOR DISCHARGE. PT UP TO DRESS SELF. PT STEADY ON FEET. PTS FRIEND ARRIVED. PT STATES PHARMCIST HAS REVIEWED ALL MEDICATIONS WITH HER. PT VERBLAIZES UNDERSTANDING OF MEDICATIONS AND STATES HER QUESTIONS HAVE BEEN ANSWERED. DISCHARGE INSTRUCTIOSN REVEIWED WITH PT. PT VERBALIES UNDERSTANDING AND STATES HER QUESTIONS HAVE BEEN ANSWERED. VITALS TAKEN BY MONI PALOMO. PIV DC'D PER PROTOCOL. GAUZE AND COBAN APPLIED. PT WAITING FOR DINNER. NO ADDITIONAL REQUESTS OR COMPLAINTS.
--- NOTE | 2019-03-21 17:36 | NUR ---
PT CALL [facility] FOR WOMENT ON. DINNER HERE. PT READY FOR DISCHARGE. PT TRANSFERES SELF TO WHEELCHAIR AND IS WHEELED FROM MED/SURG. BELONGINS AND DISCHARGE INSRUCTIONS WITH PT.
== END 2019-03-21 17:40 | disposition home or self-care (01) ==
LOC: MS 09:44
PROVIDERS: ADMIT General Practice
PROC: 0DNU4ZZ Release Omentum, Percutaneous Endoscopic Approach (ICD-10-PCS; principal; 2019-03-21 12:30)
DX: O99.611 Diseases of the digestive system complicating pregnancy, first trimester (principal); K66.0 Peritoneal adhesions (postprocedural) (postinfection); Z3A.00 Weeks of gestation of pregnancy not specified; N80.1 Endometriosis of ovary; N80.8 Other endometriosis; O99.331 Smoking (tobacco) complicating pregnancy, first trimester; F17.210 Nicotine dependence, cigarettes, uncomplicated; O99.341 Other mental disorders complicating pregnancy, first trimester; F32.9 Major depressive disorder, single episode, unspecified; O98.511 Other viral diseases complicating pregnancy, first trimester; B00.9 Herpesviral infection, unspecified; O99.89 Other specified diseases and conditions complicating pregnancy, childbirth and the puerperium; M79.7 Fibromyalgia; O99.351 Diseases of the nervous system complicating pregnancy, first trimester; G43.909 Migraine, unspecified, not intractable, without status migrainosus; Z88.8 Allergy status to other drugs, medicaments and biological substances; Z79.899 Other long term (current) drug therapy
CPT/HCPCS: 00840; 76801; 76817; 84702; 85025; G0378; J0131; J1100; J1885; J2250; J2270; J2405; J2704; J3010; J7120

== ENCOUNTER 2019-03-24 11:50 | Emergency (ER) | payer OTHER ==
[~2019-03-24] VITALS: Ht 170.2 cm; Wt 88.5 kg
--- OUTSIDE RECORDS SUMMARY | ~2019-03-24 | XMS | Clinical Summary ---
Demographics + + + | Address | [address] | | | [place] [address] | + + + | Home Phone | | + + + | Preferred Language | Unknown | + + + | Marital Status | | + + + | Spiritism Affiliation | 1013 | + + + | Race | Unknown | + + + | Ethnic Group | Unknown | + + + Author + + + | Author | [facility] (Historical as of | | | 02-02-19) | + + + | Organization | [facility] (Historical as of | | | 02-02-19) | + + + | Address | Unknown | + + + | Phone | Unavailable | + + + Support + + + + + | Name | Relationship | Address | Phone | + + + + + | Elton Bach | ECON | [address] | | | | | [place] | | | | | [phone] | | + + + + + Care Team Providers + +------+ + | Care Bilingual Research Interviewer Name | Role | Phone | + [...] +------+-------+ + | MEDICAID | MEDICA | [id number] | | | [address] | | | ID | | | | [place] | | | [place] | | | | [phone] | + +--------+ +------+-------+ + + +--------+ +--------+ + + | Guarantor Name | Accoun | Relation to | Date | Phone | Billing Address | | | t Type | Patient | of | | | | | | | | | | + +--------+ +--------+ + + | MARCIE BACH | Person | Self | [birth year] | Home: | [address] | | | [place] | | 1979 | [phone] | [place] | | | [place] | | | [phone] | [phone] | + +--------+ +--------+ + +
--- OUTSIDE RECORDS SUMMARY | ~2019-03-24 | XMS | Clinical Summary ---
Demographics + + + | Address | [address] | | | [place] [address] | + + + | Home Phone | | + + + | Preferred Language | Unknown | + + + | Marital Status | | + + + | Islam Affiliation | 1013 | + + + [...] Team Providers + +------+ + | Care Glaciologist Name | Role | Phone | + [...]
--- OUTSIDE RECORDS SUMMARY | ~2019-03-24 | XMS | Clinical Summary ---
Demographics + + + | Address | [address] | | | [place] [address] | + + + | Home Phone | | + + + | Preferred Language | Unknown | + + + | Marital Status | | + + + | Buddhism Affiliation | 1013 | + + + | Race | Unknown | + + + | Ethnic Group | Unknown | + + + Author + + + | Author | [employer] [facility] (Historical as of | | | 02-02-19) | + + + | Organization | [facility] (Historical as of | | | 02-02-19) | + + + | Address | Unknown | + + + | Phone | Unavailable | + + + Support + + + + + | Name | Relationship | Address | Phone | + + + + + | Elton Bach | ECON | [address] | | | | | [place] | | | | | [phone] | | + + + + + Care Team Providers + +------+ + | Care Branding Machine Operator Name | Role | Phone [...] +------+-------+ + | MEDICAID | MEDICA | [id number] | | | [address] | | | ID | | | | [place] | | | [place] | | | | [address] | + +--------+ +------+-------+ + + +--------+ +--------+ + + | Guarantor Name | Accoun | Relation to | Date | Phone | Billing Address | | | t Type | Patient | of | | | | | | | | | | + +--------+ +--------+ + + | MARCIE BACH | Person | Self | [birth year] | Home: | [address] | | | [place] | | 1979 | [phone] | [place] | | | [place] | | | [phone] | [phone] | + +--------+ +--------+ + +
--- OUTSIDE RECORDS SUMMARY | ~2019-03-24 | XMS | Clinical Summary ---
Demographics + + + | Address | [address] | | | [place] [address] | + + + | Home Phone | | + + + | Preferred Language | Unknown | + + + | Marital Status | | + + + | Oriental Orthodox Affiliation | 1013 | + + + | Race | Unknown | + + + | Ethnic Group | Unknown | + + + Author + + + | Author | [facility] | | | and [place] | + + + | Organization | [facility] | | | [...] Team Providers + +------+ + | Care International Nurse Name | Role | Phone | + [...]
[~2019-03-24 11:50] MED LIST changes: +ESCITALOPRAM OX20 MG PO; +GABAPENTIN300 MG PO; +TYLENOL325 MG PO
--- OUTSIDE RECORDS SUMMARY | 2019-03-24 11:52 | XMS ---
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 Bridgette VISIT COUNT (12 MO.) [address] [place] [address] TOTAL 3 NOTE: Visits indicate total known visits. 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 - Bee allergy status - Abnormal uterine and vaginal bleeding, unspecified - Less than 8 weeks gestation of - Allergy status to other drugs, medicaments and biological substances status 01/07/2019 22:25 [facility] [place] TYPE: Emergency COMPLAINT: - ABDOMINAL PAIN DIAGNOSES: - Nicotine dependence, unspecified, uncomplicated - Allergy status to other drugs, medicaments and biological substances status - Right lower quadrant pain - Personal history of urinary calculi - Bee allergy status - Other adjunct faculty for medical terminology (current) drug therapy INPATIENT VISIT TRACKING (12 MO.) 03/21/2019 09:53 [facility] TYPE: Observation COMPLAINT: - POSSIBLE ECTOPIC [email or web address]
[2019-03-24] MEDS ORDERED: NORCO 5-325 TA1 EACH PO (15:31)
== END 2019-03-24 15:54 | disposition home or self-care (01) ==
LOC: ED 11:50
DX: O03.9 Complete or unspecified spontaneous abortion without complication (principal); G43.909 Migraine, unspecified, not intractable, without status migrainosus; F17.200 Nicotine dependence, unspecified, uncomplicated; Z91.030 Bee allergy status; Z88.8 Allergy status to other drugs, medicaments and biological substances; Z79.899 Other long term (current) drug therapy
CPT/HCPCS: 76801; 76817; 80053; 84702; 85025; 86900; 86901; 99284-25; J1170; J2270; J2405; J7030

== ENCOUNTER 2019-03-25 15:04 | Emergency (ER) | payer OTHER ==
[~2019-03-25] VITALS: Ht 170.2 cm; Wt 88.5 kg
--- NOTE | ~2019-03-25 | HP ---
[facility] [address] [place], [place] [address] Draft ADMISSION DATE: 03/25/2019 CHIEF COMPLAINT: Miscarriage. HISTORY OF PRESENT ILLNESS: Ms. Bach is a pleasant 38-year-old G7, P3-0-4-3 with early threatened SAB, who presented to the emergency department. The patient was recently diagnosed with of unknown location with increasing pelvic pain and she underwent diagnostic laparoscopy on 03/21/2019. Laparoscopy demonstrated normal fallopian tubes and ultrasound that day demonstrated no intrauterine . The patient has developed pain and bleeding and presented to the emergency department 03/24, where pelvic ultrasound was performed that demonstrated an inevitable miscarriage with gestational sac right at the cervical tip. Quant HCG yesterday was 3256 and hemoglobin was 13.4. She was sent home with miscarriage instructions. She called the office earlier this morning complaining of increasing vaginal bleeding, passing large clots, and feeling lightheaded and dizzy. The patient reported that her bleeding continued to be heavy throughout the morning and was instructed to present to the emergency department where she underwent further evaluation. The patient is unsure if she passed any products of conception. She reports that her bleeding has slowed considerably over the past several hours. She reports some cramping pain and also pain at her recent laparoscopy sites. No other questions or concerns. PAST MEDICAL HISTORY: 1. Menstrual migraines. 2. Fibromyalgia. 3. Depression. 4. History of herpes. SURGICAL HISTORY: 1. Bilateral knee arthroscopy. 2. D and C in September 2013. 3. Laparoscopic left ovarian cystectomy, lysis of adhesions, hysteroscopic removal of endometrial mass in October of 2016. 4. in 2017. 5. Laparoscopic lysis of adhesions 03/21/2019 per HPI. FAMILY HISTORY: Positive for maternal great grandmother with breast cancer and paternal grandmother with breast cancer. PATIENT NAME: ANNE MARIE BACH HISTORY AND PHYSICAL DATE OF : 78 REPORT #: [id number] PHYSICIAN: BRITTANEY THAKUR DO PCP: TONY LERMA MD REPORT IS CONFIDENTIAL AND NOT TO BE RELEASED WITHOUT AUTHORIZATION [facility] [address] [place], [place] [address] Draft MEDICATIONS: 1. vitamin. 2. Citalopram 20 mg daily. 3. Bayard 5/325. ALLERGIES: 1. Reglan. 2. Wasps. SOCIAL HISTORY: Current everyday smoker. Denies drug or alcohol use. REVIEW OF SYSTEMS: A complete review of systems was performed and negative except per HPI. PHYSICAL EXAMINATION: VITAL SIGNS: Temperature 98.2, pulse 80, respiratory rate 20, blood pressure 119/53, and pulse ox 99. GENERAL APPEARANCE: Normal white female sitting in the hospital bed, in no apparent distress. Well developed, well nourished. HEENT: Normocephalic and atraumatic. HEART: Regular rate and rhythm. LUNGS: Clear to auscultation bilaterally. ABDOMEN: Soft, nondistended, and nontender. Well-healing laparoscopic sites. No organomegaly or hernias palpated. Prior scars consistent with surgical history. EXTREMITIES: No edema. PELVIC: Shows no blood at the introitus. Normal external genitalia. Normal clitoris, urethral meatus, bilateral [place]'s, and Bartholin's. On speculum exam, there was a very small amount of blood at the vaginal vault. The cervix is closed. The uterus is small, anteverted, minimally tender. No adnexal masses or adnexal tenderness bilaterally. No cervical motion tenderness, discharge, or other abnormal findings. NEUROLOGIC: Alert and oriented with no gross defects. LABORATORY DATA: HCG 1508, hemoglobin 12.4, and platelets 344. Pelvic ultrasound was performed that demonstrates the cervical gestational sac has been expelled. There was a small amount of debris in the lower uterine segment and cervix. ASSESSMENT: Complete SAB. PLAN: PATIENT NAME: ANNE MARIE BACH HISTORY AND PHYSICAL DATE OF : [birth year] REPORT #: [id number] PHYSICIAN: BRITTANEY THAKUR DO PCP: TONY LERMA MD REPORT IS CONFIDENTIAL AND NOT TO BE RELEASED WITHOUT AUTHORIZATION [facility] [address] [place], [place] [address] Draft I reviewed the ultrasound findings and decreasing quant consistent with complete SAB with the patient. Physical exam supports this diagnosis. The patient was understandably tearful and upset. We reviewed plan of care. I encouraged the patient to take ibuprofen 800 mg every 8 hours p.r.n. pain. She will follow up with Dr. Almendarez in one week for followup to discuss recurrent loss. The patient may need a repeat quant in one week. Reviewed in detail with the patient, all patient's questions were answered to the best of my ability and the patient's apparent satisfaction. Brittaney Thakur DO JSHIVA/PONCE /[id number] Copies: ~ PATIENT NAME: ANNE MARIE BACH HISTORY AND PHYSICAL DATE OF : [birth year] REPORT #: [id number] PHYSICIAN: BRITTANEY THAKUR DO PCP: TONY LERMA MD REPORT IS CONFIDENTIAL AND NOT TO BE RELEASED WITHOUT AUTHORIZATION
--- OUTSIDE RECORDS SUMMARY | ~2019-03-25 | XMS | Clinical Summary ---
Demographics + + + | Address | [address] | | | [place] [address] | + + + | Home Phone | | + + + | Preferred Language | Unknown | + + + | Marital Status | | + + + | Restorationism Affiliation | 1013 | + + + | Race | Unknown | + + + | Ethnic Group | Unknown | + + + Author + + + | Author | [facility] | | | and [place] | + + + | Organization | [facility] | | | and [...] Team Providers + +------+ + | Care Dipping Machine Operator Name | Role | Phone | + +------+ + | Duran Trevino MD | PCP | | + +------+ + Allergies Not on File Medications Not on file Active Problems Not on file Social History + +-------+ +--------+------+ | Tobacco Use | Types | Packs/Day | Years | Date | | | | | Used | | + +-------+ +--------+------+ | Current Every Day | | 1 | | | | Smoker | | | | | + +-------+ +--------+------+ + + | Comments: down to quarter of a pack a day | + + + + + | Sex Assigned at [...] recent travel history available. | + + Last Filed Vital Signs + + + + | Vital Sign | Reading | Time Taken | + + + + | Blood Pressure | 109/54 | 07/12/20161106 PST | + + + + | Pulse | 73 | 07/12/20161106 PST | + + + + | Temperature | 36.8 C (98.3 F) | 07/12/20161106 PST | + + + + | Respiratory Rate | 16 | 07/12/20161106 PST | + + + + | Oxygen Saturation | - | - | + + + + | Inhaled Oxygen | - | - | | Concentration | | | + + + + | Weight | 83.5 kg (184 lb) | 07/20/20160 PST | + + + + | Height | 167.6 cm (5' 6") | 07/20/20160 PST | + + + + | Body Mass Index | 29.7 | 07/20/20160 PST | + + + + Plan of Treatment + + + + + | Health Maintenance | Due Date | Last Done | Comments | + + + + + | Vaccine: | | | | | Dtap/Tdap/Td (1 - | 8 | | | | Tdap) | | | | + + + + + | Cervical Cancer | | | | | Screening (Pap) | 9 | | | + + + + + | Vaccine: Influenza | | | | | (#1) | 9 | | | + + + + + Results Not on filefrom Last 3 Months
--- OUTSIDE RECORDS SUMMARY | ~2019-03-25 | XMS | Clinical Summary ---
Demographics + + + | Address | [address] | | | [place] [address] | + + + | Home Phone | | + + + | Preferred Language | Unknown | + + + | Marital Status | | + + + | Latter-Day Affiliation | 1013 | + + + | Race | Unknown | + + + | Ethnic Group | Unknown | + + + Author + + + | Author | [facility] | | | and [place] | + + + | Organization | [facility] | | [...] Team Providers + +------+ + | Care Block Paver Name | Role | Phone | + [...]
--- OUTSIDE RECORDS SUMMARY | ~2019-03-25 | XMS | Clinical Summary ---
Demographics + + + | Address | [address] | | | [place] [address] | + + + | Home Phone | | + + + | Preferred Language | Unknown | + + + | Marital Status | | + + + | Evangelical Affiliation | 1013 | + + + | Race | Unknown | + + + | Ethnic Group | Unknown | + + + Author + + + | Author | [employer] (Historical as of | | | 02-02-19) | + + + | Organization | [facility] [employer] (Historical as of | | | 02-02-19) | + + + | Address | Unknown | + + + | Phone | Unavailable | + + + Support + + + + + | Name | Relationship | Address | Phone | + + + + + | Elton Bach | ECON | [address] | | | | | [place] | | | | | [address] | | + + + + + Care Team Providers + +------+ + | Care Cutter Barrel Drum Name | Role | Phone | + [...] +------+-------+ + | MEDICAID | MEDICA | [id number] | | | [address] | | | [place] | | | | [place] | | | [place] | | | | [address] | + +--------+ +------+-------+ + + +--------+ +--------+ + + | Guarantor Name | Accoun | Relation to | Date | Phone | Billing Address | | | t Type | Patient | of | | | | | | | | | | + +--------+ +--------+ + + | MARCIE BACH | Person | Self | [birth year] Home: | [address] | | | [place] | | 1979 | [phone] | [place] | | | [place] | | | [phone] | [phone] | + +--------+ +--------+ + +
--- OUTSIDE RECORDS SUMMARY | ~2019-03-25 | XMS | Clinical Summary ---
Demographics + + + | Address | [address] | | | [place] [address] | + + + | Home Phone | | + + + | Preferred Language | Unknown | + + + | Marital Status | | + + + | Voodoo Affiliation | 1013 | + + + | Race | Unknown | + + + | Ethnic Group | Unknown | + + + Author + + + | Author | [facility] [employer] (Historical as of | | | 02-02-19) | + + + | Organization | [facility] (Historical as of | | | 02-02-19) | + + + | Address | Unknown | + + + | Phone | Unavailable | + + + Support + + + + + | Name | Relationship | Address | Phone | + + + + + | Elton Bach | ECON | [address] | | | | | [place] | | | | | [phone] | | + + + + + Care Team Providers + +------+ + | Care Civil Designer Name | Role | Phone | + [...] +------+-------+ + | MEDICAID | MEDICA | [id number] | | | [address] | | | [place] | | | | [place] | | | [place] | | | | [address] | + +--------+ +------+-------+ + + +--------+ +--------+ + + | Guarantor Name | Accoun | Relation to | Date | Phone | Billing Address | | | t Type | Patient | of | | | | | | | | | | + +--------+ +--------+ + + | MARCIE BACH | Person | Self | [birth year] | Home: | [address] | | | [place] | | 1979 | [phone] | [place] | | | [place] | | | [phone] | [phone] | + +--------+ +--------+ + +
--- OUTSIDE RECORDS SUMMARY | 2019-03-25 15:06 | XMS ---
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 - Has Care Guidelines - [facility] - 2 Visits in 30 Days CARE PROVIDERS ANGELA NAVARRO [facility] 03/25/2019-Myrna Christiansen PHONE: Unknown TONY LERMA [facility] 03/25/2019-Current PHONE: [phone] Zain Blankenship Current PHONE: Unknown Abdiel Hammonds Current Orthopedic Surgery \T\ Fracture Clinic PHONE: Unknown Mahin has no Care Guidelines for this patient. Care History Medical/Surgical 03/25/2019 [facility] - PATIENT HAS A FOLLOW UP APT WITH DR ANDERSON- ON 04/01/19 [facility]idgette [facility] NOTE: Visits indicate total known visits. ED/UCC VISIT TRACKING (12 MO.) 03/25/2019 15:05 [facility] TYPE: Emergency COMPLAINT: - POSSIBLE MISCARRIAGE 03/24/2019 11:50 [facility] [place] TYPE: Emergency COMPLAINT: - PREG BLEEDING 03/20/2019 05:14 [facility] [place] TYPE: Emergency COMPLAINT: - VAGINAL BLEEDING DIAGNOSES: - Hemorrhage in early , unspecified - Personal history of urinary calculi - Nicotine dependence, unspecified, uncomplicated - Other mcfp (current) drug therapy - Bee allergy status - Abnormal uterine and vaginal bleeding, unspecified - Less than 8 weeks gestation of - Allergy status to other drugs, medicaments and biological substances status 01/07/2019 22:25 [facility] [place] TYPE: Emergency COMPLAINT: - ABDOMINAL PAIN DIAGNOSES: - Nicotine dependence, unspecified, uncomplicated - Allergy status to other drugs, medicaments and biological substances status - Right lower quadrant pain - Personal history of urinary calculi - Bee allergy status - Other 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 TYPE: Observation COMPLAINT: - POSSIBLE ECTOPIC. 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 - Nicotine dependence, cigarettes, uncomplicated - Other specified diseases and conditions complicating , childbirth and the puerperium - Peritoneal adhesions (postprocedural) (postinfection) - Allergy status to other drugs, medicaments and biological substances status - Smoking (tobacco) complicating , first trimester - Endometriosis of ovary - Other mental disorders complicating , first trimester - Other endometriosis - Herpesviral infection, unspecified - Fibromyalgia - Diseases of the digestive system complicating , first trimester - Pelvic and perineal pain [email or web address]
== END 2019-03-25 19:02 | disposition home or self-care (01) ==
LOC: ED 15:04
DX: O03.9 Complete or unspecified spontaneous abortion without complication (principal); F17.200 Nicotine dependence, unspecified, uncomplicated; Z87.442 Personal history of urinary calculi; Z91.030 Bee allergy status; Z88.8 Allergy status to other drugs, medicaments and biological substances; Z79.899 Other long term (current) drug therapy
CPT/HCPCS: 76801; 76817; 84702; 85025; 99284-25

== ENCOUNTER → 2019-05-10 | Day surgery (SDC) | payer OTHER ==
[~2019-05-10] VITALS: Ht 172.7 cm; Wt 91.0 kg
[~2019-05-10] MED LIST changes: +MOTRIN IB200 M1 PO; +NEURONTIN300 MG PO; +SHAROBEL0.35 MG PO
--- OUTSIDE RECORDS SUMMARY | ~2019-05-10 | XMS | Encounter Summary ---
Demographics + + + | Address | [address] | | | [place] [address] | + + + | Home Phone | | + + + | Preferred Language | Unknown | + + + | Marital Status | | + + + | Latter Day Affiliation | 1013 | + + + | Race | Unknown | + + + | Ethnic Group | Unknown | + + + Author + + + | Author | [facility] | | | and [place] | + + + | Organization | [facility] | | | [...] Team Providers + +------+ + | Care Alarm Adjuster Name | Role | Phone | + +------+ + PCP | Unavailable | + +------+ + Encounter Details +--------+ + + + + | Date | Type | Department | Care Team | Description | +--------+ + + + + | 07/12/ | Hospital | [facility] | Robbi Cazares, | Nephrolithiasis; | | 2017 | Encounter | [facility] | DO [address] | Ureteral stent | | | | [address] | [place] [address] | retained; Acute | | | | [place], [place] | [phone] | cystitis with | | | | [address] | | hematuria | | | | [phone] | | | +--------+ + + + [...] Note by Patricia Herrera RN at 07/12/16 6829 Author: Patricia Herrera RN Service: (none) Author Type: Registered Nurse Filed: 07/12/16 2698 Date of Service: 07/12/161258 Status: Signed Studio Couch Frame Builder: Patricia Herrera RN (Registered Nurse) Pt and [...] Date of Service: 07/12/16 1116 Status: Signed Studio Couch Frame Builder: Amy Hurley RN (Registered Nurse) Awaiting return of hemodialysis patient care specialist in order to discuss discharge instructions and discharge pa tient home. onver dario Transaction, Provider Unknown - 07/12/2016 10:10 AM PST Progress Notes by Grace Rodriguez RN at 07/12/16 1010 Author: Grace Rodriguez RN Service: (none) Author Type: Registered Nurse Filed: 07/12/16 1011 Date of Service: 07/12/16 1010 Status: Signed Studio Couch Frame Builder: Grace Rodriguez RN (Registered Nurse) Pt's ride [...]
--- OUTSIDE RECORDS SUMMARY | ~2019-05-10 | XMS | Encounter Summary ---
Demographics + + + | Address | [address] | | | [place] [address] | + + + | Home Phone | | + + + | Preferred Language | Unknown | + + + | Marital Status | | + + + | Muslim Affiliation | 1013 | + + + | Race | Unknown | + + + | Ethnic Group | Unknown | + + + Author + + + | Author | [facility] | | | and [place] | + + + | Organization | [facility] | | | [...] Team Providers + +------+ + | Care Supervisor Central Supply Name | Role | Phone | + +------+ + PCP | Unavailable | + +------+ + Encounter Details +--------+ + + + + | Date | Type | Department | Care Team | Description | +--------+ + + + + | 07/20/ | Hospital | [facility] | Robbi Cazares, | | | 2017 | Encounter | [facility] | DO [address] | | | | | CLINICAL LABORATORY | [place] [address] | | | | | [address] | [phone] | | | | | [place], [place] | | | | | | [address] | | | | | | [phone] | | | +--------+ + + + [...] | + +--------+ + + + | CALCULI ANALYSIS | Routin | 07/20/2016 | | Results for this | | | e | 10:00 AM | | procedure are in the | | | | PST | | results section. | + +--------+ + + + documented in this encounter Results Calculi Analysis (07/20/2016 10:00 AM PST) + + | Specimen | + + | | + + + + + | Narrative | Performed At | + + + | NIDUS NOT OBSERVED | EXTERNAL LAB | | Testing performed at [facility], [address] [place] [address] | | | [place] [address] COMPONENT 1 SEE | | | BELOW CALCIUM OXALATE DIHYDRATE (WEDDELLITE) 15% CALCIUM OXALATE | | | MONOHYDRATE (WHEWELLITE) 70% CARBONATE APATITE (DAHLLITE) 15% | | | Testing performed at [facility], [address] [place] [address], [place] | | | [place] [address] COMPONENT 2 NOT | | | REPORTED Testing performed at [facility], [address] [place] [address] | | | [facility], [place] [address] STONE WEIGHT | | | 0.0630 Testing performed at [facility], [facility] | | | [facility], [place] [address] | | + + + + +---------+ + + | Performing | Address | City/State/Zipcode | Phone Number | | Organization | | | | + +---------+ + + | EXTERNAL LAB | | | | + +---------+ + + documented in this encounter Visit Diagnoses Not on filedocumented in this encounter"
--- OUTSIDE RECORDS SUMMARY | ~2019-05-10 | XMS | Encounter Summary ---
Demographics + + + | Address | [address] | | | [place] [address] | + + + | Home Phone | | + + + | Preferred Language | Unknown | + + + | Marital Status | | + + + | Faith Affiliation | 1013 | + + + | Race | Unknown | + + + | Ethnic Group | Unknown | + + + Author + + + | Author | [facility] | | | and [place] | + + + | Organization | [facility] | | | [...] Team Providers + +------+ + | Care Carbon Electrodes Supervisor Name | Role | Phone | + +------+ + PCP | Unavailable | + +------+ + Encounter Details +--------+ + + + + | Date | Type | Department | Care Team | Description | +--------+ + + + + | 07/20/ | Hospital | [facility] | Conversion | Nephrolithiasis | | 2017 | Encounter | [facility] | Transaction, | | | | | [address] | Provider Unknown | | | | | [address] [place], [place] | [phone] | | | | | [address] | | | | | | [phone] | Robbi Cazares DO | | | | | | [address] | | | | | | [place] [address] | | | | | | [phone] | | | | | | | [...]
--- OUTSIDE RECORDS SUMMARY | ~2019-05-10 | XMS | Clinical Summary ---
Demographics + + + | Address | [address] | | | [place] [address] | + + + | Home Phone | | + + + | Preferred Language | Unknown | + + + | Marital Status | | + + + | Judaism Affiliation | 1013 | + + + | Race | Unknown | + + + | Ethnic Group | Unknown | + + + Author + + + | Author | [facility] | | | and [place] | + + + | Organization | [facility] | | | [...] Team Providers + +------+ + | Care Lens Molder Name | Role | Phone | + [...] kg (184 lb) | 07/20/2016 10:20 AM | | | | | PST | | + + + + + | Height | 167.6 cm (5' 6") | 07/20/2016 10:20 AM | | | | | PST | | + + + + + | Body Mass Index | 29.7 | 07/20/2016 10:20 AM | | | | | PST | | + + + + + Plan of Treatment [...]
--- OUTSIDE RECORDS SUMMARY | ~2019-05-10 | XMS | Encounter Summary ---
Demographics + + + | Address | [address] | | | [place] [address] | + + + | Home Phone | | + + + | Preferred Language | Unknown | + + + | Marital Status | | + + + | Episcopal Affiliation | 1013 | + + + | Race | Unknown | + + + | Ethnic Group | Unknown | + + + Author + + + | Author | [facility] | | | and [place] | + + + | Organization | [facility] | | | [...] Team Providers + +------+ + | Care Patent Litigation Associate Name | Role | Phone | + +------+ + PCP | Unavailable | + +------+ + Encounter Details +--------+ + + + + | Date | Type | Department | Care Team | Description | +--------+ + + + + | 07/20/ | Hospital | [facility] | Robbi Cazares, | | | 2017 | Encounter | [facility] | DO [address] | | | | | CLINICAL LABORATORY | [place] [address] | | | | | [address] | [phone] | | | | | [place], [place] | | | | | | [address] | | | | | | [phone] | | | +--------+ + + + [...] | | Testing performed at [facility], [address] [place] [address] | | | [place] [address] COMPONENT 1 SEE | | | BELOW CALCIUM OXALATE DIHYDRATE (WEDDELLITE) 15% CALCIUM OXALATE | | | MONOHYDRATE (WHEWELLITE) 70% CARBONATE APATITE (DAHLLITE) 15% | | | Testing performed at [facility], [address] [place] [address], [place] | | | [place] [address] COMPONENT 2 NOT | | | REPORTED Testing performed at [facility], [address] [place] [address] | | | [facility], [place] [address] STONE WEIGHT | | | 0.0630 Testing performed at [facility], [facility] | | | [facility] [place] [address] | | + + + + +---------+ + + | Performing | Address | City/State/Zipcode | Phone Number | | Organization | | | | + +---------+ + + | EXTERNAL LAB | | | | + +---------+ + + documented in this encounter Visit Diagnoses Not on filedocumented in this encounter"
--- OUTSIDE RECORDS SUMMARY | ~2019-05-10 | XMS | Encounter Summary ---
Demographics + + + | Address | [address] | | | [place] [address] | + + + | Home Phone | | + + + | Preferred Language | Unknown | + + + | Marital Status | | + + + | Mosque Affiliation | 1013 | + + + [...] Team Providers + +------+ + | Care Frankfurter Inspector Name | Role | Phone | + [...] | | 2017 - | | [facility] | [address] | hematuria | | | | [facility] | [place], [place] | | | 07/04/ | | [address] | [address] | | | 2016 | | [place] | [phone] | | | | | [address] | | | | | | [phone] | | | +--------+ + + + [...] EXTERNAL | | | | performed at [facility], [address] | | LAB | | | | [address], | | | | | | [place] [address] | | | | + + + + + + | Clarity | CLOUDYComment: Testing | | EXTERNAL | | | | performed at [facility], [address] | | LAB | | | | [address] [place], | | | | | | [place] [address] | | | | + + + + + + | Specific | 1.025Comment: Testing | 1.001 - 1.035 | EXTERNAL | | | [place] | performed at [facility], [address] | | LAB | | | | [address] [place], | | | | | | [place] [address] | | | | + + + + + + | Leukocyte | TRACE (A)Comment: | | EXTERNAL | | | Esterase, | Testing performed at | | LAB | | | Urine | [facility], [address], | | | | | | [place] [address] | | | | + + + + + + | Nitrite, | NEGATIVEComment: Testing | | EXTERNAL | | | Urine | performed at [facility], [address] | | LAB | | | | [address] [place], | | | | | | [place] [address] | | | | + + + + + + | Urobilinoge | 0.2Comment: Testing | mg/dL | EXTERNAL | | | n, Urine | performed at [facility], [address] | | LAB | | | | [address], | | | | | | [place] [address] | | | | + + + + + + | Protein, | 100 (A)Comment: Testing | mg/dL | EXTERNAL | | | Urine | performed at [facility], [address] | | LAB | | | | [address] [place], | | | | | | [place] [address] | | | | + + + + + + | pH, Urine | 6.5Comment: Testing | 4.6 - 8.0 | EXTERNAL | | | | performed at [facility], [address] | | LAB | | | | [address] [place], | | | | | | [place] [address] | | | | + + + + + + | Blood, | LARGE (A)Comment: | | EXTERNAL | | | Urine | Testing performed at | | LAB | | | | [facility], [address], | | | | | | [place] [address] | | | | + + + + + + | Ketones | TRACE (A)Comment: | mg/dL | EXTERNAL | | | | Testing performed at | | LAB | | | | [facility], [address], | | | | | | [place] [address] | | | | + + + + + + | Bilirubin, | NEGATIVEComment: Testing | | EXTERNAL | | | Urine | performed at [facility], [address] | | LAB | | | | [address] [place], | | | | | | [place] [address] | | | | + + + + + + | Glucose, | NEGATIVEComment: Testing | mg/dL | EXTERNAL | | | Urine | performed at [facility], [address] | | LAB | | | | [address] [place], | | | | | | [place] [address] | | | | + + + [...] | | | Ur | performed at [facility], [address] | | LAB | | | | [address], | | | | | | [place] [address] | | | | + + + [...] EXTERNAL | | | | performed at [facility], [address] | | LAB | | | | [address], | | | | | | [place] [address] | | | | + + + + + + | RBC, UA | >100Comment: Testing | 0 - 5 /hpf | EXTERNAL | | | | performed at [facility], [address] | | LAB | | | | [address] [place], | | | | | | [place] [address] | | | | + + + + + + | Epithelial | 26-50Comment: Testing | /lpf | EXTERNAL | | | Cells | performed at [facility], [address] | | LAB | | | | [address] [place], | | | | | | [place] [address] | | | | + + + + + + | Bacteria, | 3+ (A)Comment: Testing | | EXTERNAL | | | UA | performed at [facility], [address] | | LAB | | | | [address] [place], | | | | | | [place] [address] | | | | + + + + + + | MUCUS UA | 3+Comment: Testing | | EXTERNAL | | | | performed at [facility], [address] | | LAB | | | | [address], | | | | | | [place] [address] | | | | + + + + + + | Urinalysis | CULTURE TO | | EXTERNAL | | | Comments | FOLLOWComment: Testing | | LAB | | | | performed at [facility], [address] | | | | | | [address] [place], | | | | | | [place] [address] | | | | + + + [...] K/uL | LAB | | | | [facility], [address], | | | | | | [place] [address] | | | | + + + + + + | RED CELL | 4.24Comment: Testing | 3.70 - 5.10 | EXTERNAL | | | COUNT | performed at [facility], [address] | M/uL | LAB | | | | [address], | | | | | | [place] [address] | | | | + + + + + + | Hgb | 13.3Comment: Testing | 11.3 - 15.5 | EXTERNAL | | | | performed at [facility], [address] | g/dL | LAB | | | | [address] [place], | | | | | | [place] [address] | | | | + + + + + + | Hematocrit, | 39.6Comment: Testing | 34.0 - 46.0 % | EXTERNAL | | | POC | performed at [facility], [address] | | LAB | | | | [address] [place], | | | | | | [place] [address] | | | | + + + + + + | MCV | 93.3Comment: Testing | 80.0 - 100.0 fl | EXTERNAL | | | | performed at [facility], [address] | | LAB | | | | [address] [place], | | | | | | [place] [address] | | | | + + + + + + | MCH | 31.4Comment: Testing | 27.0 - 34.0 pg | EXTERNAL | | | | performed at [facility], [address] | | LAB | | | | [address], | | | | | | [place] [address] | | | | + + + + + + | MCHC | 33.7Comment: Testing | 32.0 - 35.5 | EXTERNAL | | | | performed at [facility], [address] | g/dL | LAB | | | | [address], | | | | | | [place] [address] | | | | + + + + + + | RDW-CV | 41.1Comment: Testing | 37 - 53 fl | EXTERNAL | | | | performed at [facility], [address] | | LAB | | | | [address] [place], | | | | | | [place] [address] | | | | + + + + + + | Platelet | 429 (H)Comment: Testing | 150 - 400 K/uL | EXTERNAL | | | Count | performed at [facility], [address] | | LAB | | | Plasma | [address], | | | | | | [place] [address] | | | | + + + + + + | MPV | 7.8Comment: Testing | fl | EXTERNAL | | | | performed at [facility], [address] | | LAB | | | | [address] [place], | | | | | | [place] [address] | | | | + + + + + + | Differentia | AUTOMATEDComment: | | EXTERNAL | | | l Type | Testing performed at | | LAB | | | | [facility], [address], | | | | | | [place] [address] | | | | + + + + + + | % Segmented | 64.58Comment: Testing | % | EXTERNAL | | | | performed at [facility], [address] | | LAB | | | Neutrophils | [address], | | | | | | [place] [address] | | | | + + + + + + | % | 22.96Comment: Testing | % | EXTERNAL | | | Lymphocytes | performed at [facility], [address] | | LAB | | | | [address], | | | | | | [place] [address] | | | | + + + + + + | % Monocytes | 8.89Comment: Testing | % | EXTERNAL | | | | performed at [facility], [address] | | LAB | | | | [address], | | | | | | [place] [address] | | | | + + + + + + | % | 2.53Comment: Testing | % | EXTERNAL | | | Eosinophils | performed at [facility], [address] | | LAB | | | | [address] [place], | | | | | | [place] [address] | | | | + + + + + + | % Basophils | 1.04Comment: Testing | % | EXTERNAL | | | | performed at [facility], [address] | | LAB | | | | [address] [place], | | | | | | [place] [address] | | | | + + + + + + | Absolute | 7.66 (H)Comment: Testing | 1.90 - 7.40 | EXTERNAL | | | Segmented | performed at [facility], [address] | K/uL | LAB | | | Neutrophils | [address], | | | | | | [place] [address] | | | | + + + + + + | Absolute | 2.72Comment: Testing | 1.00 - 3.90 | EXTERNAL | | | Lymphocytes | performed at [facility], [address] | K/uL | LAB | | | | [address], | | | | | | [place] [address] | | | | + + + + + + | Absolute | 1.05 (H)Comment: Testing | 0.00 - 0.80 | EXTERNAL | | | Monocytes | performed at [facility], [address] | K/uL | LAB | | | | [address], | | | | | | [place] [address] | | | | + + + + + + | Absolute | 0.30Comment: Testing | 0.00 - 0.50 | EXTERNAL | | | Eosinophils | performed at [facility], [address] | K/uL | LAB | | | | [address], | | | | | | [place] [address] | | | | + + + + + + | Absolute | 0.12 (H)Comment: Testing | 0.00 - 0.10 | EXTERNAL | | | Basophils | performed at [facility], [address] | K/uL | LAB | | | | [address] [place], | | | | | | [place] [address] | | | | + + + [...] EXTERNAL | | | | performed at [facility], [address] | | LAB | | | | [address], | | | | | | [place] [address] | | | | + + + [...] EXTERNAL | | | | performed at [facility], [address] | mmol/L | LAB | | | | [address], | | | | | | [place] [address] | | | | + + + + + + | K | 4.0Comment: Testing | 3.5 - 4.9 | EXTERNAL | | | | performed at [facility], [address] | mmol/L | LAB | | | | [address], | | | | | | [place] [address] | | | | + + + + + + | Cl | 103Comment: Testing | 99 - 109 mmol/L | EXTERNAL | | | | performed at [facility], [address] | | LAB | | | | [address] [place], | | | | | | [place] [address] | | | | + + + + + + | CO2 | 28Comment: Testing | 23 - 32 mmol/L | EXTERNAL | | | | performed at [facility], [address] | | LAB | | | | [address], | | | | | | [place] [address] | | | | + + + + + + | Anion Gap | 12Comment: Testing | 5 - 20 mmol/L | EXTERNAL | | | | performed at [facility], [address] | | LAB | | | | [address], | | | | | | [place] [address] | | | | + + + + + + | Glucose, | 84Comment: Testing | 65 - 99 mg/dL | EXTERNAL | | | Fasting | performed at [facility], [address] | | LAB | | | | [address] [place], | | | | | | [place] [address] | | | | + + + + + + | BUN | 22Comment: Testing | 8 - 25 mg/dL | EXTERNAL | | | | performed at [facility], [address] | | LAB | | | | [address], | | | | | | [place] [address] | | | | + + + + + + | Creatinine | 0.98Comment: Testing | 0.50 - 1.00 | EXTERNAL | | | | performed at [facility], [address] | mg/dL | LAB | | | | [address], | | | | | | [place] [address] | | | | + + + + + + | BUN/Creatin | 22Comment: Testing | | EXTERNAL | | | ine Ratio | performed at [facility], [address] | | LAB | | | | [address], | | | | | | [place] [address] | | | | + + + + + + | Calcium | 8.8Comment: Testing | 8.5 - 10.5 | EXTERNAL | | | | performed at [facility], [address] | mg/dL | LAB | | | | [address], | | | | | | [place] [address] | | | | + + + + + + | Protein, | 7.8Comment: Testing | 6.3 - 8.2 g/dL | EXTERNAL | | | Total | performed at [facility], [address] | | LAB | | | | [address], | | | | | | [place] [address] | | | | + + + + + + | Albumin | 4.3Comment: Testing | 3.6 - 5.0 g/dL | EXTERNAL | | | | performed at [facility], [address] | | LAB | | | | [address], | | | | | | [place] [address] | | | | + + + + + + | Globulin | 3.5Comment: Testing | 1.3 - 4.9 g/dL | EXTERNAL | | | | performed at [facility], [address] | | LAB | | | | [address], | | | | | | [place] [address] | | | | + + + + + + | A/G Ratio | 1.2Comment: Testing | 1.0 - 2.4 | EXTERNAL | | | | performed at [facility], [address] | | LAB | | | | [address], | | | | | | [place] [address] | | | | + + + + + + | Bilirubin | 0.5Comment: Testing | 0.1 - 1.5 mg/dL | EXTERNAL | | | Total | performed at [facility], [address] | | LAB | | | | [address], | | | | | | [place] [address] | | | | + + + + + + | ALP, | 67Comment: Testing | 35 - 115 U/L | EXTERNAL | | | External | performed at [facility], [address] | | LAB | | | | [address], | | | | | | [place] [address] | | | | + + + + + + | AST | 14Comment: Testing | 10 - 45 U/L | EXTERNAL | | | | performed at [facility], [address] | | LAB | | | | [address], | | | | | | [place] [address] | | | | + + + + + + | ALT | 18Comment: Testing | 10 - 65 U/L | EXTERNAL | | | | performed at [facility], [address] | | LAB | | | | [address], | | | | | | [place] [address] | | | | + + + [...] | | | | | | at [facility], [address] | | | | | | [place] | | | | | | [address] | | | | + + + [...]
--- OUTSIDE RECORDS SUMMARY | ~2019-05-10 | XMS | Clinical Summary ---
Demographics + + + | Address | [address] | | | [place] [address] | + + + | Home Phone | | + + + | Preferred Language | Unknown | + + + | Marital Status | | + + + | Jehovah'S Witness Affiliation | 1013 | + + + | Race | Unknown | + + + | Ethnic Group | Unknown | + + + Author + + + | Author | [employer] [facility] (Historical as of | | | 02-02-19) | + + + | Organization | [facility] (Historical as of | | | 02-02-19) | + + + | Address | Unknown | + + + | Phone | Unavailable | + + + Support + + + + + | Name | Relationship | Address | Phone | + + + + + | Elton Bach | ECON | [address] | | | | | [place] | | | | | [address] | | + + + + + Care Team Providers + +------+ + | Care Web Development Intern Name | Role | Phone | + [...] +------+-------+ + | MEDICAID | MEDICA | [id number] | | | [address] | | | [place] | | | | [place] | | | [place] | | | | [address] | + +--------+ +------+-------+ + + +--------+ +--------+ + + | Guarantor Name | Accoun | Relation to | Date | Phone | Billing Address | | | t Type | Patient | of | | | | | | | | | | + +--------+ +--------+ + + | MARCIE BACH | Person | Self [birth year] | Home: | [address] | | | [place] | | 1979 | [phone] | [place] | | | [place] | | | [phone] | [phone] | + +--------+ +--------+ + +
--- OUTSIDE RECORDS SUMMARY | ~2019-05-10 | XMS | Encounter Summary ---
Demographics + + + | Address | [address] | | | [place] [address] | + + + | Home Phone | | + + + | Preferred Language | Unknown | + + + | Marital Status | | + + + | Hindu Affiliation | 1013 | + + + | Race | Unknown | + + + | Ethnic Group | Unknown | + + + Author + + + | Author | [facility] | | | and [place] | + + + | Organization | [facility] | | [...] Team Providers + +------+ + | Care Welt Pocket Machine Operator Name | Role | Phone | + +------+ + PCP | Unavailable | + +------+ + Encounter Details +--------+ + + + + | Date | Type | Department | Care Team | Description | +--------+ + + + + | 07/03/ | Emergency | [facility] | Juve Sawyer DO | Acute cystitis with | | 2017 - | | [facility] [place] | [address] | hematuria | | | | [facility] [place] | [place], [place] | | | 07/04/ | | [address] | [address] | | | 2016 | | [place] | [phone] | | | | | [address] | | | | | | [phone] | | | +--------+ + + + [...] EXTERNAL | | | | performed at [facility], [address] | | LAB | | | | [address], | | | | | | [place] [address] | | | | + + + + + + | Clarity | CLOUDYComment: Testing | | EXTERNAL | | | | performed at [facility], [address] | | LAB | | | | [address], | | | | | | [place] [address] | | | | + + + + + + | Specific | 1.025Comment: Testing | 1.001 - 1.035 | EXTERNAL | | | [place] | performed at [facility], [address] | | LAB | | | | [address], | | | | | | [place] [address] | | | | + + + + + + | Leukocyte | TRACE (A)Comment: | | EXTERNAL | | | Esterase, | Testing performed at | | LAB | | | Urine | [facility], [address], | | | | | | [place] [address] | | | | + + + + + + | Nitrite, | NEGATIVEComment: Testing | | EXTERNAL | | | Urine | performed at [facility], [address] | | LAB | | | | [address], | | | | | | [place] [address] | | | | + + + + + + | Urobilinoge | 0.2Comment: Testing | mg/dL | EXTERNAL | | | n, Urine | performed at [facility], [address] | | LAB | | | | [address], | | | | | | [place] [address] | | | | + + + + + + | Protein, | 100 (A)Comment: Testing | mg/dL | EXTERNAL | | | Urine | performed at [facility], [address] | | LAB | | | | [address], | | | | | | [place] [address] | | | | + + + + + + | pH, Urine | 6.5Comment: Testing | 4.6 - 8.0 | EXTERNAL | | | | performed at [facility], [address] | | LAB | | | | [address], | | | | | | [place] [address] | | | | + + + + + + | Blood, | LARGE (A)Comment: | | EXTERNAL | | | Urine | Testing performed at | | LAB | | | | [facility], [address], | | | | | | [place] [address] | | | | + + + + + + | Ketones | TRACE (A)Comment: | mg/dL | EXTERNAL | | | | Testing performed at | | LAB | | | | [facility], [address], | | | | | | [place] [address] | | | | + + + + + + | Bilirubin, | NEGATIVEComment: Testing | | EXTERNAL | | | Urine | performed at [facility], [address] | | LAB | | | | [address], | | | | | | [place] [address] | | | | + + + + + + | Glucose, | NEGATIVEComment: Testing | mg/dL | EXTERNAL | | | Urine | performed at [facility], [address] | | LAB | | | | [address], | | | | | | [place] [address] | | | | + + + [...] | | | Ur | performed at [facility], [address] | | LAB | | | | [address], | | | | | | [place] [address] | | | | + + + [...] EXTERNAL | | | | performed at [facility], [address] | | LAB | | | | [address], | | | | | | [place] [address] | | | | + + + + + + | RBC, UA | >100Comment: Testing | 0 - 5 /hpf | EXTERNAL | | | | performed at [facility], [address] | | LAB | | | | [address], | | | | | | [place] [address] | | | | + + + + + + | Epithelial | 26-50Comment: Testing | /lpf | EXTERNAL | | | Cells | performed at [facility], [address] | | LAB | | | | [address], | | | | | | [place] [address] | | | | + + + + + + | Bacteria, | 3+ (A)Comment: Testing | | EXTERNAL | | | UA | performed at [facility], [address] | | LAB | | | | [address], | | | | | | [place] [address] | | | | + + + + + + | MUCUS UA | 3+Comment: Testing | | EXTERNAL | | | | performed at [facility], [address] | | LAB | | | | [address], | | | | | | [place] [address] | | | | + + + + + + | Urinalysis | CULTURE TO | | EXTERNAL | | | Comments | FOLLOWComment: Testing | | LAB | | | | performed at [facility], [address] | | | | | | [address], | | | | | | [place] [address] | | | | + + + [...] K/uL | LAB | | | | [facility], [address], | | | | | | [place] [address] | | | | + + + + + + | RED CELL | 4.24Comment: Testing | 3.70 - 5.10 | EXTERNAL | | | COUNT | performed at [facility], [address] | M/uL | LAB | | | | [address], | | | | | | [place] [address] | | | | + + + + + + | Hgb | 13.3Comment: Testing | 11.3 - 15.5 | EXTERNAL | | | | performed at [facility], [address] | g/dL | LAB | | | | [address], | | | | | | [place] [address] | | | | + + + + + + | Hematocrit, | 39.6Comment: Testing | 34.0 - 46.0 % | EXTERNAL | | | POC | performed at [facility], [address] | | LAB | | | | [address], | | | | | | [place] [address] | | | | + + + + + + | MCV | 93.3Comment: Testing | 80.0 - 100.0 fl | EXTERNAL | | | | performed at [facility], [address] | | LAB | | | | [address], | | | | | | [place] [address] | | | | + + + + + + | MCH | 31.4Comment: Testing | 27.0 - 34.0 pg | EXTERNAL | | | | performed at [facility], [address] | | LAB | | | | [address], | | | | | | [place] [address] | | | | + + + + + + | MCHC | 33.7Comment: Testing | 32.0 - 35.5 | EXTERNAL | | | | performed at [facility], [address] | g/dL | LAB | | | | [address], | | | | | | [place] [address] | | | | + + + + + + | RDW-CV | 41.1Comment: Testing | 37 - 53 fl | EXTERNAL | | | | performed at [facility], [address] | | LAB | | | | [address], | | | | | | [place] [address] | | | | + + + + + + | Platelet | 429 (H)Comment: Testing | 150 - 400 K/uL | EXTERNAL | | | Count | performed at [facility], [address] | | LAB | | | Plasma | [address], | | | | | | [place] [address] | | | | + + + + + + | MPV | 7.8Comment: Testing | fl | EXTERNAL | | | | performed at [facility], [address] | | LAB | | | | [address], | | | | | | [place] [address] | | | | + + + + + + | Differentia | AUTOMATEDComment: | | EXTERNAL | | | l Type | Testing performed at | | LAB | | | | [facility], [address], | | | | | | [place] [address] | | | | + + + + + + | % Segmented | 64.58Comment: Testing | % | EXTERNAL | | | | performed at [facility], [address] | | LAB | | | Neutrophils | [address], | | | | | | [place] [address] | | | | + + + + + + | % | 22.96Comment: Testing | % | EXTERNAL | | | Lymphocytes | performed at [facility], [address] | | LAB | | | | [address], | | | | | | [place] [address] | | | | + + + + + + | % Monocytes | 8.89Comment: Testing | % | EXTERNAL | | | | performed at [facility], [address] | | LAB | | | | [address], | | | | | | [place] [address] | | | | + + + + + + | % | 2.53Comment: Testing | % | EXTERNAL | | | Eosinophils | performed at [facility], [address] | | LAB | | | | [address], | | | | | | [place] [address] | | | | + + + + + + | % Basophils | 1.04Comment: Testing | % | EXTERNAL | | | | performed at [facility], [address] | | LAB | | | | [address], | | | | | | [place] [address] | | | | + + + + + + | Absolute | 7.66 (H)Comment: Testing | 1.90 - 7.40 | EXTERNAL | | | Segmented | performed at [facility], [address] | K/uL | LAB | | | Neutrophils | [address], | | | | | | [place] [address] | | | | + + + + + + | Absolute | 2.72Comment: Testing | 1.00 - 3.90 | EXTERNAL | | | Lymphocytes | performed at [facility], [address] | K/uL | LAB | | | | [address], | | | | | | [place] [address] | | | | + + + + + + | Absolute | 1.05 (H)Comment: Testing | 0.00 - 0.80 | EXTERNAL | | | Monocytes | performed at [facility], [address] | K/uL | LAB | | | | [address], | | | | | | [place] [address] | | | | + + + + + + | Absolute | 0.30Comment: Testing | 0.00 - 0.50 | EXTERNAL | | | Eosinophils | performed at [facility], [address] | K/uL | LAB | | | | [address], | | | | | | [place] [address] | | | | + + + + + + | Absolute | 0.12 (H)Comment: Testing | 0.00 - 0.10 | EXTERNAL | | | Basophils | performed at [facility], [address] | K/uL | LAB | | | | [address] [place], | | | | | | [place] [address] | | | | + + + [...] EXTERNAL | | | | performed at [facility], [address] | | LAB | | | | [address], | | | | | | [place] [address] | | | | + + + [...] EXTERNAL | | | | performed at [facility], [address] | mmol/L | LAB | | | | [address], | | | | | | [place] [address] | | | | + + + + + + | K | 4.0Comment: Testing | 3.5 - 4.9 | EXTERNAL | | | | performed at [facility], [address] | mmol/L | LAB | | | | [address], | | | | | | [place] [address] | | | | + + + + + + | Cl | 103Comment: Testing | 99 - 109 mmol/L | EXTERNAL | | | | performed at [facility], [address] | | LAB | | | | [address], | | | | | | [place] [address] | | | | + + + + + + | CO2 | 28Comment: Testing | 23 - 32 mmol/L | EXTERNAL | | | | performed at [facility], [address] | | LAB | | | | [address], | | | | | | [place] [address] | | | | + + + + + + | Anion Gap | 12Comment: Testing | 5 - 20 mmol/L | EXTERNAL | | | | performed at [facility], [address] | | LAB | | | | [address], | | | | | | [place] [address] | | | | + + + + + + | Glucose, | 84Comment: Testing | 65 - 99 mg/dL | EXTERNAL | | | Fasting | performed at [facility], [address] | | LAB | | | | [address], | | | | | | [place] [address] | | | | + + + + + + | BUN | 22Comment: Testing | 8 - 25 mg/dL | EXTERNAL | | | | performed at [facility], [address] | | LAB | | | | [address], | | | | | | [place] [address] | | | | + + + + + + | Creatinine | 0.98Comment: Testing | 0.50 - 1.00 | EXTERNAL | | | | performed at [facility], [address] | mg/dL | LAB | | | | [address], | | | | | | [place] [address] | | | | + + + + + + | BUN/Creatin | 22Comment: Testing | | EXTERNAL | | | ine Ratio | performed at [facility], [address] | | LAB | | | | [address], | | | | | | [place] [address] | | | | + + + + + + | Calcium | 8.8Comment: Testing | 8.5 - 10.5 | EXTERNAL | | | | performed at [facility], [address] | mg/dL | LAB | | | | [address], | | | | | | [place] [address] | | | | + + + + + + | Protein, | 7.8Comment: Testing | 6.3 - 8.2 g/dL | EXTERNAL | | | Total | performed at [facility], [address] | | LAB | | | | [address], | | | | | | [place] [address] | | | | + + + + + + | Albumin | 4.3Comment: Testing | 3.6 - 5.0 g/dL | EXTERNAL | | | | performed at [facility], [address] | | LAB | | | | [address], | | | | | | [place] [address] | | | | + + + + + + | Globulin | 3.5Comment: Testing | 1.3 - 4.9 g/dL | EXTERNAL | | | | performed at [facility], [address] | | LAB | | | | [address], | | | | | | [place] [address] | | | | + + + + + + | A/G Ratio | 1.2Comment: Testing | 1.0 - 2.4 | EXTERNAL | | | | performed at [facility], [address] | | LAB | | | | [address], | | | | | | [place] [address] | | | | + + + + + + | Bilirubin | 0.5Comment: Testing | 0.1 - 1.5 mg/dL | EXTERNAL | | | Total | performed at [facility], [address] | | LAB | | | | [address], | | | | | | [place] [address] | | | | + + + + + + | ALP, | 67Comment: Testing | 35 - 115 U/L | EXTERNAL | | | External | performed at [facility], [address] | | LAB | | | | [address], | | | | | | [place] [address] | | | | + + + + + + | AST | 14Comment: Testing | 10 - 45 U/L | EXTERNAL | | | | performed at [facility], [address] | | LAB | | | | [address], | | | | | | [place] [address] | | | | + + + + + + | ALT | 18Comment: Testing | 10 - 65 U/L | EXTERNAL | | | | performed at [facility], [address] | | LAB | | | | [address], | | | | | | [place] [address] | | | | + + + [...] | | | | | | at [facility], [address] | | | | | | [place] | | | | | | [address] | | | | + + + [...]
--- OUTSIDE RECORDS SUMMARY | ~2019-05-10 | XMS | Encounter Summary ---
Demographics + + + | Address | [address] | | | [place] [address] | + + + | Home Phone | | + + + | Preferred Language | Unknown | + + + | Marital Status | | + + + | Gnosticism Affiliation | 1013 | + + + | Race | Unknown | + + + | Ethnic Group | Unknown | + + + Author + + + | Author | [facility] | | | and [place] | + + + | Organization | [facility] | | [...] Team Providers + +------+ + | Care Friction Welding Machine Operator Name | Role | Phone | + +------+ + PCP | Unavailable | + +------+ + Encounter Details +--------+ + + + + | Date | Type | Department | Care Team | Description | +--------+ + + + + | 11/30/ | Hospital | [facility] | Conversion | Pain | | 2016 | Encounter | CONVERSION [address] | Transaction, | | | | | [address] | Provider Unknown | | | | | [place], [place] | | | | | | [phone] | (Fax) | | | | | [phone] | | | +--------+ + + + [...] | + +--------+ + + + | CT HEAD WO CONTRAST | Routin | 12/29/2014 | | Results for this | | | e | 3:49 PM | | procedure are in the | | | | PDT | | results section. | + +--------+ + + + documented in this encounter Results CT Head wo Contrast (12/29/2014 3:49 PM PDT) + + | Specimen | + + | | + + + + + | Narrative | Performed At | + + + | This is a non-reportable procedure without a radiologist report and | | | is used for image storage only | | + + + + + | Procedure Note | + + | Sherman Prabhakar Conversion - 01/31/2019 7:02 PM PDT This is a non-reportable procedure | | without a radiologist report and isused for image storage only | + + documented in this encounter Visit Diagnoses + + | Diagnosis | + + | Pain Generalized pain | + + documented in this encounter"
--- OUTSIDE RECORDS SUMMARY | ~2019-05-10 | XMS | Encounter Summary ---
Demographics + + + | Address | [address] | | | [place] [address] | + + + | Home Phone | | + + + | Preferred Language | Unknown | + + + | Marital Status | | + + + | Mu-Ism Affiliation | 1013 | + + + | Race | Unknown | + + + | Ethnic Group | Unknown | + + + Author + + + | Author | [facility] | | | and [place] | + + + | Organization | [facility] | | [...] Team Providers + +------+ + | Care Meat Carver Name | Role | Phone | + +------+ + PCP | Unavailable | + +------+ + Encounter Details +--------+ + + + + | Date | Type | Department | Care Team | Description | +--------+ + + + + | 07/12/ | Hospital | [facility] | Robbi Cazares, | Nephrolithiasis; | | 2017 | Encounter | [facility] | DO [address] | Ureteral stent | | | | [address] | [place] [address] | retained; Acute | | | | [place], [place] | [phone] | cystitis with | | | | [address] | | hematuria | | | | [phone] | | | +--------+ + + + [...] Note by Patricia Herrera RN at 07/12/16 8315 Author: Patricia Herrera RN Service: (none) Author Type: Registered Nurse Filed: 07/12/16 3485 Date of Service: 07/12/161258 Status: Signed Food And Nutrition Services Supervisor: Patricia Herrera RN (Registered Nurse) Pt and [...] Date of Service: 07/12/16 1116 Status: Signed Food And Nutrition Services Supervisor: Amy Hurley RN (Registered Nurse) Awaiting return of infant childcare provider in order to discuss discharge instructions and discharge pa tient home. onver dario Transaction, Provider Unknown - 07/12/2016 10:10 AM PST Progress Notes by Grace Rodriguez RN at 07/12/16 1010 Author: Grace Rodriguez RN Service: (none) Author Type: Registered Nurse Filed: 07/12/16 1011 Date of Service: 07/12/16 1010 Status: Signed Food And Nutrition Services Supervisor: Grace Rodriguez RN (Registered Nurse) Pt's ride [...]
--- OUTSIDE RECORDS SUMMARY | ~2019-05-10 | XMS | Encounter Summary ---
Demographics + + + | Address | [address] | | | [place] [address] | + + + | Home Phone | | + + + | Preferred Language | Unknown | + + + | Marital Status | | + + + | Protestant Affiliation | 1013 | + + + | Race | Unknown | + + + | Ethnic Group | Unknown | + + + Author + + + | Author | [facility] | | | and [place] | + + + | Organization | [facility] | | | [...] Team Providers + +------+ + | Care Floorworker Name | Role | Phone | + +------+ + PCP | Unavailable | + +------+ + Encounter Details +--------+ + + + + | Date | Type | Department | Care Team | Description | +--------+ + + + + | 11/30/ | Hospital | [facility] | Conversion | Pain | | 2016 | Encounter | CONVERSION [address] | Transaction, | | | | | [address] | Provider Unknown | | | | | [place], [place] | | | | | | [address] | (Fax) | | | | | [phone] | | | +--------+ + + + [...]
--- OUTSIDE RECORDS SUMMARY | ~2019-05-10 | XMS | Encounter Summary ---
Demographics + + + | Address | [address] | | | [place] [address] | + + + | Home Phone | | + + + | Preferred Language | Unknown | + + + | Marital Status | | + + + | Orthodox Affiliation | 1013 | + + + | Race | Unknown | + + + | Ethnic Group | Unknown | + + + Author + + + | Author | [facility] | | | and [place] | + + + | Organization | [facility] | | | and [...] Team Providers + +------+ + | Care Family Medicine Physician Name | Role | Phone | + +------+ + PCP | Unavailable | + +------+ + Encounter Details +--------+ + + + + | Date | Type | Department | Care Team | Description | +--------+ + + + + | 07/20/ | Hospital | [facility] | Robbi Cazares, | | | 2017 | Encounter | [facility] | DO [address] | | | | | CLINICAL LABORATORY | [place] [address] | | | | | [address] | [phone] | | | | | [place], [place] | | | | | | [address] | | | | | | [phone] | | | +--------+ + + + [...] LAB | | Testing performed at [facility], [address] [place] [address] | | | [place] [address] COMPONENT 1 SEE | | | BELOW CALCIUM OXALATE DIHYDRATE (WEDDELLITE) 15% CALCIUM OXALATE | | | MONOHYDRATE (WHEWELLITE) 70% CARBONATE APATITE (DAHLLITE) 15% | | | Testing performed at [facility], [address] [place] [address], [place] | | | [place] [address] COMPONENT 2 NOT | | | REPORTED Testing performed at [facility], [address] [place] [address] | | | [facility], [place] [address] STONE WEIGHT | | | 0.0630 Testing performed at [facility], [facility] | | | [facility], [place] [address] | | + + + + +---------+ + + | Performing | Address | City/State/Zipcode | Phone Number | | Organization | | | | + +---------+ + + | EXTERNAL LAB | | | | + +---------+ + + documented in this encounter Visit Diagnoses Not on filedocumented in this encounter"
--- OUTSIDE RECORDS SUMMARY | ~2019-05-10 | XMS | Encounter Summary ---
Demographics + + + | Address | [address] | | | [place] [address] | + + + | Home Phone | | + + + | Preferred Language | Unknown | + + + | Marital Status | | + + + | Rastafari Affiliation | 1013 | + + + | Race | Unknown | + + + | Ethnic Group | Unknown | + + + Author + + + | Author | [facility] | | | and [place] | + + + | Organization | [facility] | | | [...] Team Providers + +------+ + | Care Sponsorship Coordinator Name | Role | Phone | + +------+ + PCP | Unavailable | + +------+ + Encounter Details +--------+ + + + + | Date | Type | Department | Care Team | Description | +--------+ + + + + | 07/20/ | Hospital | [facility] | Conversion | Nephrolithiasis | | 2017 | Encounter | [facility] | Transaction, | | | | | [address] | Provider Unknown | | | | | [address] [place], [place] | [phone] | | | | | [address] | | | | | | [phone] | Robbi Cazares DO | | | | | | [address] | | | | | | [place] [address] | | | | | | [phone] | | | | | | | [...]
--- OUTSIDE RECORDS SUMMARY | ~2019-05-10 | XMS | Encounter Summary ---
Demographics + + + | Address | [address] | | | [place] [address] | + + + | Home Phone | | + + + | Preferred Language | Unknown | + + + | Marital Status | | + + + | Yarsani Affiliation | 1013 | + + + | Race | Unknown | + + + | Ethnic Group | Unknown | + + + Author + + + | Author | [facility] | | | and [place] | + + + | Organization | [facility] | | | and [...] Team Providers + +------+ + | Care Echocardiographer Name | Role | Phone | + +------+ + PCP | Unavailable | + +------+ + Encounter Details +--------+ + + + + | Date | Type | Department | Care Team | Description | +--------+ + + + + | 07/20/ | Hospital | [facility] | Conversion | Nephrolithiasis | | 2017 | Encounter | [facility] | Transaction, | | | | | [address] | Provider Unknown | | | | | [address] [place], [place] | [phone] | | | | | [address] | | | | | | [phone] | Robbi Cazares DO | | | | | | [address] | | | | | | [place] [address] | | | | | | [phone] | | | | | | | [...]
--- OUTSIDE RECORDS SUMMARY | ~2019-05-10 | XMS | Encounter Summary ---
Demographics + + + | Address | [address] | | | [place] [address] | + + + | Home Phone | | + + + | Preferred Language | Unknown | + + + | Marital Status | | + + + | Pentecostalism Affiliation | 1013 | + + + | Race | Unknown | + + + | Ethnic Group | Unknown | + + + Author + + + | Author | [facility] | | | and [place] | + + + | Organization | [facility] | | | and [...] Team Providers + +------+ + | Care Spinning Lathe Operator Hydraulic Name | Role | Phone | + +------+ + PCP | Unavailable | + +------+ + Encounter Details +--------+ + + + + | Date | Type | Department | Care Team | Description | +--------+ + + + + | 07/03/ | Emergency | [facility] | Juve Sawyer DO | Acute cystitis with | | 2017 - | | [facility] | [address] | hematuria | | | | EM[facility] | [place], [place] | | | 07/04/ | | [address] | [address] | | | 2016 | | [place] | [phone] | | | | | [address] | | | | | | [phone] | | | +--------+ + + + [...] EXTERNAL | | | | performed at [facility], [address] | | LAB | | | | [address], | | | | | | [place] [address] | | | | + + + + + + | Clarity | CLOUDYComment: Testing | | EXTERNAL | | | | performed at [facility], [address] | | LAB | | | | [address], | | | | | | [place] [address] | | | | + + + + + + | Specific | 1.025Comment: Testing | 1.001 - 1.035 | EXTERNAL | | | [place] | performed at [facility], [address] | | LAB | | | | [address], | | | | | | [place] [address] | | | | + + + + + + | Leukocyte | TRACE (A)Comment: | | EXTERNAL | | | Esterase, | Testing performed at | | LAB | | | Urine | [facility], [address], | | | | | | [place] [address] | | | | + + + + + + | Nitrite, | NEGATIVEComment: Testing | | EXTERNAL | | | Urine | performed at [facility], [address] | | LAB | | | | [address], | | | | | | [place] [address] | | | | + + + + + + | Urobilinoge | 0.2Comment: Testing | mg/dL | EXTERNAL | | | n, Urine | performed at [facility], [address] | | LAB | | | | [address], | | | | | | [place] [address] | | | | + + + + + + | Protein, | 100 (A)Comment: Testing | mg/dL | EXTERNAL | | | Urine | performed at [facility], [address] | | LAB | | | | [address], | | | | | | [place] [address] | | | | + + + + + + | pH, Urine | 6.5Comment: Testing | 4.6 - 8.0 | EXTERNAL | | | | performed at [facility], [address] | | LAB | | | | [address], | | | | | | [place] [address] | | | | + + + + + + | Blood, | LARGE (A)Comment: | | EXTERNAL | | | Urine | Testing performed at | | LAB | | | | [facility], [address], | | | | | | [place] [address] | | | | + + + + + + | Ketones | TRACE (A)Comment: | mg/dL | EXTERNAL | | | | Testing performed at | | LAB | | | | [facility], [address], | | | | | | [place] [address] | | | | + + + + + + | Bilirubin, | NEGATIVEComment: Testing | | EXTERNAL | | | Urine | performed at [facility], [address] | | LAB | | | | [address], | | | | | | [place] [address] | | | | + + + + + + | Glucose, | NEGATIVEComment: Testing | mg/dL | EXTERNAL | | | Urine | performed at [facility], [address] | | LAB | | | | [address], | | | | | | [place] [address] | | | | + + + [...] | | | Ur | performed at [facility], [address] | | LAB | | | | [address], | | | | | | [place] [address] | | | | + + + [...] EXTERNAL | | | | performed at [facility], [address] | | LAB | | | | [address], | | | | | | [place] [address] | | | | + + + + + + | RBC, UA | >100Comment: Testing | 0 - 5 /hpf | EXTERNAL | | | | performed at [facility], [address] | | LAB | | | | [address] [place], | | | | | | [place] [address] | | | | + + + + + + | Epithelial | 26-50Comment: Testing | /lpf | EXTERNAL | | | Cells | performed at [facility], [address] | | LAB | | | | [address] [place], | | | | | | [place] [address] | | | | + + + + + + | Bacteria, | 3+ (A)Comment: Testing | | EXTERNAL | | | UA | performed at [facility], [address] | | LAB | | | | [address], | | | | | | [place] [address] | | | | + + + + + + | MUCUS UA | 3+Comment: Testing | | EXTERNAL | | | | performed at [facility], [address] | | LAB | | | | [address], | | | | | | [place] [address] | | | | + + + + + + | Urinalysis | CULTURE TO | | EXTERNAL | | | Comments | FOLLOWComment: Testing | | LAB | | | | performed at [facility], [address] | | | | | | [address], | | | | | | [place] [address] | | | | + + + [...] K/uL | LAB | | | | [facility], [address], | | | | | | [place] [address] | | | | + + + + + + | RED CELL | 4.24Comment: Testing | 3.70 - 5.10 | EXTERNAL | | | COUNT | performed at [facility], [address] | M/uL | LAB | | | | [address], | | | | | | [place] [address] | | | | + + + + + + | Hgb | 13.3Comment: Testing | 11.3 - 15.5 | EXTERNAL | | | | performed at [facility], [address] | g/dL | LAB | | | | [address], | | | | | | [place] [address] | | | | + + + + + + | Hematocrit, | 39.6Comment: Testing | 34.0 - 46.0 % | EXTERNAL | | | POC | performed at [facility], [address] | | LAB | | | | [address] [place], | | | | | | [place] [address] | | | | + + + + + + | MCV | 93.3Comment: Testing | 80.0 - 100.0 fl | EXTERNAL | | | | performed at [facility], [address] | | LAB | | | | [address] [place], | | | | | | [place] [address] | | | | + + + + + + | MCH | 31.4Comment: Testing | 27.0 - 34.0 pg | EXTERNAL | | | | performed at [facility], [address] | | LAB | | | | [address] [place], | | | | | | [place] [address] | | | | + + + + + + | MCHC | 33.7Comment: Testing | 32.0 - 35.5 | EXTERNAL | | | | performed at [facility], [address] | g/dL | LAB | | | | [address], | | | | | | [place] [address] | | | | + + + + + + | RDW-CV | 41.1Comment: Testing | 37 - 53 fl | EXTERNAL | | | | performed at [facility], [address] | | LAB | | | | [address] [place], | | | | | | [place] [address] | | | | + + + + + + | Platelet | 429 (H)Comment: Testing | 150 - 400 K/uL | EXTERNAL | | | Count | performed at [facility], [address] | | LAB | | | Plasma | [address], | | | | | | [place] [address] | | | | + + + + + + | MPV | 7.8Comment: Testing | fl | EXTERNAL | | | | performed at [facility], [address] | | LAB | | | | [address] [place], | | | | | | [place] [address] | | | | + + + + + + | Differentia | AUTOMATEDComment: | | EXTERNAL | | | l Type | Testing performed at | | LAB | | | | [facility], [address], | | | | | | [place] [address] | | | | + + + + + + | % Segmented | 64.58Comment: Testing | % | EXTERNAL | | | | performed at [facility], [address] | | LAB | | | Neutrophils | [address], | | | | | | [place] [address] | | | | + + + + + + | % | 22.96Comment: Testing | % | EXTERNAL | | | Lymphocytes | performed at [facility], [address] | | LAB | | | | [address] [place], | | | | | | [place] [address] | | | | + + + + + + | % Monocytes | 8.89Comment: Testing | % | EXTERNAL | | | | performed at [facility], [address] | | LAB | | | | [address] [place], | | | | | | [place] [address] | | | | + + + + + + | % | 2.53Comment: Testing | % | EXTERNAL | | | Eosinophils | performed at [facility], [address] | | LAB | | | | [address] [place], | | | | | | [place] [address] | | | | + + + + + + | % Basophils | 1.04Comment: Testing | % | EXTERNAL | | | | performed at [facility], [address] | | LAB | | | | [address] [place], | | | | | | [place] [address] | | | | + + + + + + | Absolute | 7.66 (H)Comment: Testing | 1.90 - 7.40 | EXTERNAL | | | Segmented | performed at [facility], [address] | K/uL | LAB | | | Neutrophils | [address], | | | | | | [place] [address] | | | | + + + + + + | Absolute | 2.72Comment: Testing | 1.00 - 3.90 | EXTERNAL | | | Lymphocytes | performed at [facility], [address] | K/uL | LAB | | | | [address], | | | | | | [place] [address] | | | | + + + + + + | Absolute | 1.05 (H)Comment: Testing | 0.00 - 0.80 | EXTERNAL | | | Monocytes | performed at [facility], [address] | K/uL | LAB | | | | [address], | | | | | | [place] [address] | | | | + + + + + + | Absolute | 0.30Comment: Testing | 0.00 - 0.50 | EXTERNAL | | | Eosinophils | performed at [facility], [address] | K/uL | LAB | | | | [address], | | | | | | [place] [address] | | | | + + + + + + | Absolute | 0.12 (H)Comment: Testing | 0.00 - 0.10 | EXTERNAL | | | Basophils | performed at [facility], [address] | K/uL | LAB | | | | [address] [place], | | | | | | [place] [address] | | | | + + + [...] EXTERNAL | | | | performed at [facility], [address] | | LAB | | | | [address], | | | | | | [place] [address] | | | | + + + [...] EXTERNAL | | | | performed at [facility], [address] | mmol/L | LAB | | | | [address], | | | | | | [place] [address] | | | | + + + + + + | K | 4.0Comment: Testing | 3.5 - 4.9 | EXTERNAL | | | | performed at [facility], [address] | mmol/L | LAB | | | | [address], | | | | | | [place] [address] | | | | + + + + + + | Cl | 103Comment: Testing | 99 - 109 mmol/L | EXTERNAL | | | | performed at [facility], [address] | | LAB | | | | [address] [place], | | | | | | [place] [address] | | | | + + + + + + | CO2 | 28Comment: Testing | 23 - 32 mmol/L | EXTERNAL | | | | performed at [facility], [address] | | LAB | | | | [address] [place], | | | | | | [place] [address] | | | | + + + + + + | Anion Gap | 12Comment: Testing | 5 - 20 mmol/L | EXTERNAL | | | | performed at [facility], [address] | | LAB | | | | [address] [place], | | | | | | [place] [address] | | | | + + + + + + | Glucose, | 84Comment: Testing | 65 - 99 mg/dL | EXTERNAL | | | Fasting | performed at [facility], [address] | | LAB | | | | [address] [place], | | | | | | [place] [address] | | | | + + + + + + | BUN | 22Comment: Testing | 8 - 25 mg/dL | EXTERNAL | | | | performed at [facility], [address] | | LAB | | | | [address], | | | | | | [place] [address] | | | | + + + + + + | Creatinine | 0.98Comment: Testing | 0.50 - 1.00 | EXTERNAL | | | | performed at [facility], [address] | mg/dL | LAB | | | | [address], | | | | | | [place] [address] | | | | + + + + + + | BUN/Creatin | 22Comment: Testing | | EXTERNAL | | | ine Ratio | performed at [facility], [address] | | LAB | | | | [address] [place], | | | | | | [place] [address] | | | | + + + + + + | Calcium | 8.8Comment: Testing | 8.5 - 10.5 | EXTERNAL | | | | performed at [facility], [address] | mg/dL | LAB | | | | [address], | | | | | | [place] [address] | | | | + + + + + + | Protein, | 7.8Comment: Testing | 6.3 - 8.2 g/dL | EXTERNAL | | | Total | performed at [facility], [address] | | LAB | | | | [address], | | | | | | [place] [address] | | | | + + + + + + | Albumin | 4.3Comment: Testing | 3.6 - 5.0 g/dL | EXTERNAL | | | | performed at [facility], [address] | | LAB | | | | [address], | | | | | | [place] [address] | | | | + + + + + + | Globulin | 3.5Comment: Testing | 1.3 - 4.9 g/dL | EXTERNAL | | | | performed at [facility], [address] | | LAB | | | | [address], | | | | | | [place] [address] | | | | + + + + + + | A/G Ratio | 1.2Comment: Testing | 1.0 - 2.4 | EXTERNAL | | | | performed at [facility], [address] | | LAB | | | | [address], | | | | | | [place] [address] | | | | + + + + + + | Bilirubin | 0.5Comment: Testing | 0.1 - 1.5 mg/dL | EXTERNAL | | | Total | performed at [facility], [address] | | LAB | | | | [address], | | | | | | [place] [address] | | | | + + + + + + | ALP, | 67Comment: Testing | 35 - 115 U/L | EXTERNAL | | | External | performed at [facility], [address] | | LAB | | | | [address], | | | | | | [place] [address] | | | | + + + + + + | AST | 14Comment: Testing | 10 - 45 U/L | EXTERNAL | | | | performed at [facility], [address] | | LAB | | | | [address], | | | | | | [place] [address] | | | | + + + + + + | ALT | 18Comment: Testing | 10 - 65 U/L | EXTERNAL | | | | performed at [facility], [address] | | LAB | | | | [address], | | | | | | [place] [address] | | | | + + + [...] | | | | | | at [facility], [address] | | | | | | [place] | | | | | | [address] | | | | + + + [...]
--- OUTSIDE RECORDS SUMMARY | ~2019-05-10 | XMS | Clinical Summary ---
Demographics + + + | Address | [address] | | | [place] [address] | + + + | Home Phone | | + + + | Preferred Language | Unknown | + + + | Marital Status | | + + + | Synagogue Affiliation | 1013 | + + + | Race | Unknown | + + + | Ethnic Group | Unknown | + + + Author + + + | Author | [facility] | | | and [place] | + + + | Organization | [facility] | | | [...] Team Providers + +------+ + | Care Medical Assisting Program Director Name | Role | Phone | [...]
--- OUTSIDE RECORDS SUMMARY | ~2019-05-10 | XMS | Encounter Summary ---
Demographics + + + | Address | [address] | | | [place] [address] | + + + | Home Phone | | + + + | Preferred Language | Unknown | + + + | Marital Status | | + + + | Congregational Affiliation | 1013 | + + + [...] Team Providers + +------+ + | Care Manager Law Name | Role | Phone | + +------+ + PCP | Unavailable | + +------+ + Encounter Details +--------+ + + + + | Date | Type | Department | Care Team | Description | +--------+ + + + + | 07/12/ | Hospital | [facility] | Robbi Cazares, | Nephrolithiasis; | | 2017 | Encounter | [facility] | DO [address] | Ureteral stent | | | | [address] | [place] [address] | retained; Acute | | | | [place], [place] | [phone] | cystitis with | | | | [address] | | hematuria | | | | [phone] | | | +--------+ + + + [...] Note by Patricia Herrera RN at 07/12/16 8062 Author: Patricia Herrera RN Service: (none) Author Type: Registered Nurse Filed: 07/12/16 1030 Date of Service: 07/12/161258 Status: Signed Business Analyst Ecommerce: Patricia Herrera RN (Registered Nurse) Pt and [...] Date of Service: 07/12/16 1116 Status: Signed Business Analyst Ecommerce: Amy Hurley RN (Registered Nurse) Awaiting return of personal care home administrator in order to discuss discharge instructions and discharge pa tient home. onver dario Transaction, Provider Unknown - 07/12/2016 10:10 AM PST Progress Notes by Grace Rodriguez RN at 07/12/16 1010 Author: Grace Rodriguez RN Service: (none) Author Type: Registered Nurse Filed: 07/12/16 1011 Date of Service: 07/12/16 1010 Status: Signed Business Analyst Ecommerce: Grace Rodriguez RN (Registered Nurse) Pt's ride [...]
--- OUTSIDE RECORDS SUMMARY | ~2019-05-10 | XMS | Clinical Summary ---
Demographics + + + | Address | [address] | | | [place] [address] | + + + | Home Phone | | + + + | Preferred Language | Unknown | + + + | Marital Status | | + + + | Buddhist Affiliation | 1013 | + + + | Race | Unknown | + + + | Ethnic Group | Unknown | + + + Author + + + | Author | [employer] [facility] (Historical as of | | | 02-02-19) | + + + | Organization | [facility] (Historical as of | | | 02-02-19) | + + + | Address | Unknown | + + + | Phone | Unavailable | + + + Support + + + + + | Name | Relationship | Address | Phone | + + + + + | Elton Bach | ECON | [address] | | | | | [place] | | | | | [address] | | + + + + + Care Team Providers + +------+ + | Care Decision Unit Rn Name | Role | Phone | [...] +------+-------+ + | MEDICAID | MEDICA | [id number] | | | [address] | | | [place] | | | | [place] | | | [place] | | | | [address] | + +--------+ +------+-------+ + + +--------+ +--------+ + + | Guarantor Name | Accoun | Relation to | Date | Phone | Billing Address | | | t Type | Patient | of | | | | | | | | | | + +--------+ +--------+ + + | MARCIE BACH | Person | Self | [birth year] | Home: | [address] | | | [place] | | 1979 | [phone] | [place] | | | [place] | | | [phone] | [phone] | + +--------+ +--------+ + +
--- OUTSIDE RECORDS SUMMARY | ~2019-05-10 | XMS | Encounter Summary ---
Demographics + + + | Address | [address] | | | [place] [address] | + + + | Home Phone | | + + + | Preferred Language | Unknown | + + + | Marital Status | | + + + | Lutheran Affiliation | 1013 | + + + | Race | Unknown | + + + | Ethnic Group | Unknown | + + + Author + + + | Author | [facility] | | | and [place] | + + + | Organization | [facility] | | | and [...] Team Providers + +------+ + | Care Antique Repairer Name | Role | Phone | + +------+ + PCP | Unavailable | + +------+ + Encounter Details +--------+ + + + + | Date | Type | Department | Care Team | Description | +--------+ + + + + | 11/30/ | Hospital | [facility] | Conversion | Pain | | 2016 | Encounter | CONVERSION [address] | Transaction, | | | | [address] | Provider Unknown | | | | | [place], [place] | | | | | | [address] | (Fax) | | | | | [phone] | | | +--------+ + + + [...]
--- OUTSIDE RECORDS SUMMARY | ~2019-05-10 | XMS | Clinical Summary ---
Demographics + + + | Address | [address] | | | [place] [address] | + + + | Home Phone | | + + + | Preferred Language | Unknown | + + + | Marital Status | | + + + | Orthodoxy Affiliation | 1013 | + + + | Race | Unknown | + + + | Ethnic Group | Unknown | + + + Author + + + | Author | [employer] [facility] (Historical as of | | | 02-02-19) | + + + | Organization | [facility] (Historical as of | | | 02-02-19) | + + + | Address | Unknown | + + + | Phone | Unavailable | + + + Support + + + + + | Name | Relationship | Address | Phone | + + + + + | Elton Bach | ECON | [address] | | | | | [place] | | | | | [address] | | + + + + + Care Team Providers + +------+ + | Care Clerk General Name | Role | Phone | + [...] +------+-------+ + | MEDICAID | MEDICA | [id number] | | | [address] | | | [place] | | | | [place] | | | [place] | | | | [address] | + +--------+ +------+-------+ + + +--------+ +--------+ + + | Guarantor Name | Accoun | Relation to | Date | Phone | Billing Address | | | t Type | Patient | of | | | | | | | | | | + +--------+ +--------+ + + | MARCIE BACH | Person | Self | [birth year] | Home: | [address] | | | [place] | | 1979 | [phone] | [place] | | | [place] | | | [phone] | [phone] | + +--------+ +--------+ + +
--- OUTSIDE RECORDS SUMMARY | ~2019-05-10 | XMS | Clinical Summary ---
Demographics + + + | Address | [address] | | | [place] [address] | + + + | Home Phone | | + + + | Preferred Language | Unknown | + + + | Marital Status | | + + + | Hindu Affiliation | 1013 | + + + | Race | Unknown | + + + | Ethnic Group | Unknown | + + + Author + + + | Author | [facility] | | | and [place] | + + + | Organization | [facility] | | | [...] Team Providers + +------+ + | Care Sprinkling Truck Driver Name | Role | Phone | + [...]
--- OUTSIDE RECORDS SUMMARY | 2019-05-10 16:40 | XMS ---
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 Care History Medical/Surgical 03/25/2019 [facility] - PATIENT HAS A FOLLOW UP APT WITH DR ANDERSON- ON 04/01/19 [place] [facility] (12 MO.) [facility] NOTE: Visits indicate total known visits. 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 03/24/2019 11:50 [facility] [place] TYPE: Emergency COMPLAINT: - PREG BLEEDING DIAGNOSES: - Bee allergy status - Migraine, unsp, not intractable, without status migrainosus - Complete or unsp spontaneous without complication - Complete or unsp spontaneous without complication - 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 - Nicotine dependence, unspecified, uncomplicated - Allergy status to oth drug/meds/biol subst status 03/20/2019 05:14 [facility] [place] TYPE: Emergency COMPLAINT: - VAGINAL BLEEDING DIAGNOSES: - Hemorrhage in early , unspecified - Personal history of urinary calculi - Nicotine dependence, unspecified, uncomplicated - Other half-way (current) drug therapy - Bee allergy status - Abnormal uterine and vaginal bleeding, unspecified - 1 Less than 8 weeks gestation of - Allergy status to oth drug/meds/biol subst status 01/07/2019 22:25 [facility] [place] TYPE: Emergency COMPLAINT: - ABDOMINAL PAIN DIAGNOSES: - Nicotine dependence, unspecified, uncomplicated - Allergy status to oth drug/meds/biol subst status - Right lower quadrant pain - Personal history of urinary calculi - Bee allergy status - 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 DIAGNOSES: - Other viral diseases complicating , first trimester - Major depressive disorder, single episode, unspecified - Weeks of gestation of not specified - Diseases of the nervous sys comp , first trimester - Migraine, unsp, not intractable, without status migrainosus - Other half-way (current) drug therapy - Nicotine dependence, cigarettes, uncomplicated - Oth diseases and conditions compl preg/chldbrth - Peritoneal adhesions (postprocedural) (postinfection) - Allergy status to oth drug/meds/biol subst status - Smoking (tobacco) complicating , first trimester - Endometriosis of ovary - Oth mental disorders complicating , first trimester - Other endometriosis - Herpesviral infection, unspecified - Fibromyalgia - Diseases of the dgstv sys comp , first trimester - Pelvic and perineal pain [email or web address]
--- NOTE | 2019-05-10 21:49 | NUR ---
05/10/192148 Nelly Soto 2112 PT ARRIVED TO PACU, PT TRUNED ON HER SIDE. PT GRIMACING AND REPORTS PAIN 8/10. CORRUGATOR SUPERVISOR GIVING PAIN MEDICATION. PT COUGHING AND PULLS OFF O2 MASK. PT REACTIVE TO VERBAL STIMULI. 2119 PT MOVING IN BED AND WARM BLACKETS GIVEN. HOB INCREASED PT ROLLED TO HER BACK. PT CONTINUES TO REPORT PAIN, NOW 10/10 AND PT GRIMACING. 2127 PAIN MEDICATION GIVEN. AT BEDSIDE TALKING TO PT. PT AWAKE AND VSS. 2129 PT PUTTING HER OWN CONTACTS IN HER EYES. PT SITTING IN HIGH FOWLERS AND CONTINUES TO RATE PAIN 10/10. 2134 PAIN MEDICATION GIVEN.
--- NOTE | 2019-05-10 22:10 | NUR ---
PT ARRIVES TO THE FLOOR VIA STRETCHER. PT ABLE TO STAND AND WALK INTO THE BATHROOM, REPORTS SLIGHT LIGHT HEADEDNESS. PT AMBULATES TO THE BED WITH 1PA, TOLERATED WELL. PT ADMISSION COMPLETE. PT REPORTS ITCHING, REQUESTS BENADRYL. PRIMARY RN NOTIFIED. PT REPORTS SHE IS "STARVING", PROVIDED CRACKERS AND 7UP, PT TOLERATED WELL. PT WOULD LIKE FLORENCIO STOREY, PERIOPERATIVE NURSE NOTIFIED. PT ORIENTED TO ROOM. DENIES FURTHER QUESTIONS OR NEEDS AT THIS TIME. CALL LIGHT IN REACH.
--- NOTE | 2019-05-10 22:32 | NUR ---
pt REQUESTED NICOTINE PATCH. MD ORDERED, ORDER ENTERED.
--- NOTE | 2019-05-10 23:00 | NUR ---
ASSESSMENT DONE. pt REPORTED "CRAMPING" IN HER ABD RATED 5/10 AT THIS TIME. PRN PAIN MED AND ITCHING MED GIVEN ALONG WITH NICOTINE PATCH. UPDATED ON PLAN OF CARE. THERAPEUTIC COMMUNICATION. pt TOLERATING CLEAR LIQUIDS WITHOUT ISSUE. WILL CONTINUE TO SLOWLY ADVANCE DIET. CALL LIGHT WITHIN REACH.
--- NOTE | 2019-05-11 00:19 | NUR ---
VITALS DONE. pt UP TO TOILET TO VOID, SMALL AMOUNT OF SPOTTING ON PAD. STATED PAIN WAS "OKAY RIGHT NOW" NO REQUESTS. CALL LIGHT WITHIN REACH.
--- NOTE | 2019-05-11 04:11 | NUR ---
ROUNDED ON pt. RESTING IN BED. REPORTED 6/10 PAIN, MENTIONED OVARY PAIN WELL. PRN PAIN MED GIVEN (SEE MAR). CALL LIGHT WITHIN REACH.
--- NOTE | 2019-05-11 07:27 | NUR ---
RECIEVED BEDSIDE REPORT FROM MARY NORMAN. PT IS AWAKE AND ALERT IN BED. STATES HER PAIN IS 7/10. APPEARS PHYSICALLY COMFORATBLE, BUT EMOTIONAL. STATES SHE HAS NO NEEDS AT THIS TIME.
--- NOTE | 2019-05-11 09:10 | NUR ---
ROUNDED WITH DR NAVARRO. PT HAS ORDER FOR QUANTITAIVE HCG AT [facility] FOR MONDAY, SHE IS TO KEEP THAT APPOINTMENT AND FOLLOW UP WITH DR NAVARRO AFTER THANKSGIVING.
--- NOTE | 2019-05-11 09:13 | OR ---
[address] [address] Signed DATE OF OPERATION: 05/10/2019 SURGEON: Lonnie Almendarez MD Patient of Dr. Almendarez. PREOPERATIVE DIAGNOSIS: Cervical with incomplete . POSTOPERATIVE DIAGNOSIS: Cervical with incomplete . PROCEDURE: Dilation and curettage with endocervical curettage. WELCOME WAGON HOSTESS: Melanie Carlson MD. ANESTHESIA: General. ESTIMATED BLOOD LOSS: 10 mL. SPECIMEN: Products of conception. DRAINS: None. PACKING: None. FINDINGS: Vagina, slight blood. Cervix dilated 1 cm with necrotic tissue in the os with the remaining tissue adherent to endocervix. The uterus was normal size and shape, no adnexal masses. COMPLICATIONS: None. Electronically Signed By: LONNIE ALMENDAREZ MD 05/11/19 0913 PATIENT NAME: ANNE MARIE BAZAN OPERATIVE REPORT DATE OF : 78 REPORT #: [id number] PHYSICIAN: LONNIE ALMENDAREZ MD PCP: TONY TREVINO MD REPORT IS CONFIDENTIAL AND NOT TO BE RELEASED WITHOUT AUTHORIZATION [address] [address] Signed DESCRIPTION OF PROCEDURE: The patient was brought to the operating room, placed in supine position. After adequate general anesthesia was obtained, was prepped and draped in usual sterile fashion. The patient was prepped for a possible hysterectomy because of the chance of excessive bleeding and need for hysterectomy. A Weaver catheter was placed in the bladder and a weighted speculum was placed in the vagina and the anterior lip of the cervix was grasped with a long Allis clamp. Stitches of 0 chromic were placed at 3 o'clock and 9 o'clock to occlude the cervical branches to decrease bleeding and then cervical stroma injected with 10 mL of dilute vasopressin, 1 amp in 30 mL solution. A small curette was then carefully introduced into the cervix and the visualized tissue scraped on to piece of Telfa placed in the vagina. The endocervix was then scraped in a 360 degree fashion with some tissue mostly at approximately 7 o'clock adherent to the endocervix, but with the curetting the remaining tissue came out. The curetting was repeated this time with no additional tissue palpable or removed. There was a small defect noted at about 7 o'clock in the endocervix from the area thought to be attachment of the cervical . At this point, the cervix was carefully observed, noted to have good hemostasis. Curetting was done all the way to the internal os, which could be palpated with a small curette. The cervix was continued to be watched and continued to have good hemostasis, so the procedure was terminated, Weaver catheter was removed. The patient went to recovery room in good condition. The sponge, needle, and instrument count correct at the end of the procedure. The endocervical curettings were sent to Pathology for identification. MD FLACA Valenzuela/RAMSESL /[id number] cc: Tony Trevino MD Copies: TONY TREVINO MD ~ Electronically Signed By: LONNIE ALMENDAREZ MD 05/11/19 0913 PATIENT NAME: ANNE MARIE BAZAN OPERATIVE REPORT DATE OF : 78 REPORT #: [id number] PHYSICIAN: LONNIE ALMENDAREZ MD PCP: TONY TREVINO MD REPORT IS CONFIDENTIAL AND NOT TO BE RELEASED WITHOUT AUTHORIZATION
--- NOTE | 2019-05-11 09:54 | NUR ---
PT IS SITTING UP IN BED, EATING BREAKFAST. CALL LIGHT IN REACH. NO NEEDS AT THIS TIME.
--- NOTE | 2019-05-11 10:41 | NUR ---
PT DISCHARGED HOME. DISCHARGE TEACHING COMPLETE. DISCUSSED FOLLOW UP, SCHEDULED LABS, ACTIVITIES, WHEN TO CALL THE DR, ACTIVITIES. PT VERBALIZED UNDERSTANDING. PT HAS ALL PERSONAL BELONGINGS. RN TOOK PT TO COMPUTER EQUIPMENT REPAIRER WHERE RIDE WOULD MEET HER.
--- NOTE | 2019-05-14 12:58 | PATH ---
[facility] [address], [place] [address] Signed SPECIMEN(S): A PRODUCTS OF CONCEPTION SPECIMEN SOURCE: A. PRODUCTS OF CONCEPTION CLINICAL HISTORY: Cervical . FINAL PATHOLOGIC DIAGNOSIS: Uterine contents: - Products of conception. - Also present, small fragments of benign glandular and squamous endocervical mucosa with mild chronic cervicitis. LJA:cml:C2NR MICROSCOPIC EXAMINATION: Histologic sections of all submitted blocks are examined by light microscopy. These findings, together with the gross examination, support the pathologic diagnosis. GROSS DESCRIPTION: The specimen, labeled "MH, POC," is received in formalin and consists of a 3.3 x 3.0 x 0.4 cm aggregate of dark brown membranous and friable tissue fragments admixed with mucus. Paint Stock Clerk sections are submitted in cassette (A1). AM (under the direct supervision of a pathologist) The Gross Description was prepared using a voice recognition system. The report was reviewed for accuracy; however, sound-alike word errors, addition and/or deletions may occur. If there is any question about this report, please contact Client Services. PERFORMING LABORATORY: The technical component was performed by [facility], [address] [place] [address] (Game Preserve Manager: Farhana Peralta MD; CLIA# [id number]). [facility] [address] [address] (Game Preserve Manager: Amilcar Blankenship MD; CLIA# [id number]). Diagnostician: Amilcar Blankenship MD Pathologist PATIENT NAME: ANNE MARIE BAZAN PATHOLOGY DATE OF : 78 REPORT #: [id number] PHYSICIAN: LEO PATHOLOGY PCP: TONY LERMA MD REPORT IS CONFIDENTIAL AND NOT TO BE RELEASED WITHOUT AUTHORIZATION [address] [place] [address] Signed Electronically Signed 05/14/2019 Copies: ~ PATIENT NAME: ANNE MARIE BAZAN PATHOLOGY DATE OF : 78 REPORT #: [id number] PHYSICIAN: LEO PATHOLOGY PCP: TONY LERMA MD REPORT IS CONFIDENTIAL AND NOT TO BE RELEASED WITHOUT AUTHORIZATION
== END ==
LOC: ED 16:38 → MS 16:40 → ED 16:40 → DS 17:30 → MS 05-11 10:30
PROVIDERS: General Practice
PROC: 10D17Z9 Manual Extraction of Products of Conception, Retained, Via Natural or Artificial Opening (ICD-10-PCS; principal; 2019-05-10 20:45)
DX: O03.4 Incomplete spontaneous abortion without complication (principal); F17.200 Nicotine dependence, unspecified, uncomplicated
CPT/HCPCS: 80048; 84702; 85025; 86850; 86900; 86901; 96361; 96374; 96376; 99284-25; J0131; J0690; J1100; J1170; J1200; J1885; J2405; J2704; J3010; J7040; J7121

== ENCOUNTER 2019-06-23 09:04 | Emergency (ER) | payer BC, OTHER ==
[~2019-06-23] VITALS: Ht 167.6 cm; Wt 86.2 kg
--- OUTSIDE RECORDS SUMMARY | ~2019-06-23 | XMS | Encounter Summary ---
Demographics + + + | Address | [address] | | | [place] [address] | + + + | Home Phone | | + + + | Preferred Language | Unknown | + + + | Marital Status | | + + + | Bahai Affiliation | 1013 | + + + | Race | Unknown | + + + | Ethnic Group | Unknown | + + + Author + + + | Author | [facility] | | | and [place] | + + + | Organization | [facility] | | | and [...] Team Providers + +------+ + | Care Desktop Architect Name | Role | Phone | + +------+ + PCP | Unavailable | + +------+ + Encounter Details +--------+ + + + + | Date | Type | Department | Care Team | Description | +--------+ + + + + | 07/20/ | Hospital | [facility] | Conversion | Nephrolithiasis | | 2017 | Encounter | [facility] | Transaction, | | | | | [address] | Provider Unknown | | | | | [address] [place], [place] | [phone] | | | | | [address] | | | | | | [phone] | Robbi Cazares DO | | | | | | [address] | | | | | | [place] [address] | | | | | | [phone] | | | | | | | | +--------+ + + + [...] | XR ABDOMEN AP | Routin | 07/20/2016 | | Results for this | | | e | 7:32 AM | | procedure are in the | | | | PST | | results section. | + +--------+ + + + documented in this encounter Results XR Abdomen AP (07/20/2016 7:32 AM PST) + + | Specimen | + + | | + + + + + | Impressions | Performed At | + + + | 1. Fragments of the previous 7 mm LEFT renal calculus are now | | | visualized in the distal LEFT ureter and urinary bladder. 2. The | | | LEFT ureteral stent is been removed. | | + + + + + + | Narrative | Performed At | + + + | [facility] XR ABDOMEN 1 VIEW 07/20/2016 7:32 AM History: | | | 36 years. Female. Nephrolithiasis and ureteral stone. Recent | | | LEFT ureteral stent visualized on radiography of 07/04/16. Follow-up | | | exam. Technique: Single supine view the abdomen. Comparison: | | | 07/04/16 Findings: The LEFT ureteral stent is been removed. A | | | previous 7 mm stone visualized within the LEFT renal pelvis, his No | | | Lung are visualized in the region of the kidney or LEFT ureter. | | | New, small rounded calcifications are visualized in the deep LEFT | | | pelvis, approximately 6 in number. 3 of the faint calcifications | | | probably overlie the distal LEFT ureter. Another 3 calcifications | | | probably lie within the urinary bladder. A chronic phlebolith is | | | noted in the RIGHT deep pelvis. The bowel gas pattern is normal. | | | | | + + + + + | Procedure Note | + + | Aki, Rad Conversion - 01/31/2019 4:53 AM PDT [facility] PRIEST ABDOMEN 1 | | VIEW07/20/2016 7:32 AM History: 36 years. Female. Nephrolithiasis and ureteral stone. | | Recent LEFT ureteral stent visualized on radiography of 07/04/16. Follow-up exam. | | Technique: Single supine view the abdomen. Comparison: 07/04/16 Findings: The LEFT | | ureteral stent is been removed. A previous 7 mm stone visualized within the LEFT renal | | pelvis, his No Lung are visualized in the region of the kidney or LEFT ureter. New, | | small rounded calcifications are visualized in the deep LEFT pelvis, approximately 6 in | | number. 3 of the faint calcifications probably overlie the distal LEFT ureter. Another | | 3 calcifications probably lie within the urinary bladder. A chronic phlebolith is noted | | in the RIGHT deep pelvis. The bowel gas pattern is normal. IMPRESSION: 1. Fragments of | | the previous 7 mm LEFT renal calculus are now visualized in the distal LEFT ureter and | | urinary bladder.2. The LEFT ureteral stent is been removed. | | | |A chronic phlebolith is noted in the RIGHT deep pelvis. | | | |The bowel gas pattern is normal. | | | |IMPRESSION: | |1. Fragments of the previous 7 mm LEFT renal calculus are now visualized in the distal LEF T ureter and urinary bladder. | |2. The LEFT ureteral stent is been removed. | | | | | + + documented in this encounter Visit Diagnoses + + | Diagnosis | + + | Nephrolithiasis Calculus of kidney | + + documented in this encounter"
--- OUTSIDE RECORDS SUMMARY | ~2019-06-23 | XMS | Clinical Summary ---
Demographics + + + | Address | [address] | | | [place] [address] | + + + | Home Phone | | + + + | Preferred Language | Unknown | + + + | Marital Status | | + + + | Denominational Affiliation | 1013 | + + + | Race | Unknown | + + + | Ethnic Group | Unknown | + + + Author + + + | Author | [facility] [employer] (Historical as of | | | 02-02-19) | + + + | Organization | [facility] (Historical as of | | | 02-02-19) | + + + | Address | Unknown | + + + | Phone | Unavailable | + + + Support + + + + + | Name | Relationship | Address | Phone | + + + + + | Elton Bach | ECON | [address] | | | | | [place] | | | | | [address] | | + + + + + Care Team Providers + +------+ + | Care Basket Bottom Machine Operator Name | Role | Phone [...] +------+-------+ + | MEDICAID | MEDICA | [id number] | | | [address] | | | [place] | | | | [place] | | | [place] | | | | [address] | + +--------+ +------+-------+ + + +--------+ +--------+ + + | Guarantor Name | Accoun | Relation to | Date | Phone | Billing Address | | | t Type | Patient | of | | | | | | | | | | + +--------+ +--------+ + + | MARCIE BACH | Person | Self | [birth year] | Home: | [address] | | | [place] | | 1979 | [phone] | [place] | | | [place] | | | [phone] | [phone] | + +--------+ +--------+ + +
--- OUTSIDE RECORDS SUMMARY | ~2019-06-23 | XMS | Encounter Summary ---
Demographics + + + | Address | [address] | | | [place] [address] | + + + | Home Phone | | + + + | Preferred Language | Unknown | + + + | Marital Status | | + + + | Christianity Affiliation | 1013 | + + + | Race | Unknown | + + + | Ethnic Group | Unknown | + + + Author + + + | Author | [facility] | | | and [place] | + + + | Organization | [facility] | | | [...] Team Providers + +------+ + | Care Business Continuity Planning Director Name | Role | Phone | + +------+ + PCP | Unavailable | + +------+ + Encounter Details +--------+ + + + + | Date | Type | Department | Care Team | Description | +--------+ + + + + | 07/20/ | Hospital | [facility] | Conversion | Nephrolithiasis | | 2017 | Encounter | [facility] | Transaction, | | | | | [address] | Provider Unknown | | | | | [address] [place], [place] | [phone] | | | | | [address] | | | | | | [phone] | Robbi Cazares DO | | | | | | [address] | | | | | | [place] [address] | | | | | | [phone] | | | | | | | [...]
--- OUTSIDE RECORDS SUMMARY | ~2019-06-23 | XMS | Clinical Summary ---
Demographics + + + | Address | [address] | | | [place] [address] | + + + | Home Phone | | + + + | Preferred Language | Unknown | + + + | Marital Status | | + + + | Scientology Affiliation | 1013 | + + + | Race | Unknown | + + + | Ethnic Group | Unknown | + + + Author + + + | Author | [facility] [employer] [facility] (Historical as of | | | 02-02-19) | + + + | Organization | [facility] (Historical as of | | | 02-02-19) | + + + | Address | Unknown | + + + | Phone | Unavailable | + + + Support + + + + + | Name | Relationship | Address | Phone | + + + + + | Elton Bach | ECON | [address] | | | | | [place] | | | | | [address] | | + + + + + Care Team Providers + +------+ + | Care Baster Hand Name | Role | Phone | + [...] +------+-------+ + | MEDICAID | MEDICA | [id number] | | | [address] | | | ID | | | | [place] | | | [place] | | | | [address] | + +--------+ +------+-------+ + + +--------+ +--------+ + + | Guarantor Name | Accoun | Relation to | Date | Phone | Billing Address | | | t Type | Patient | of | | | | | | | | | | + +--------+ +--------+ + + | MARCIE BACH | Person | Self | [birth year] | Home: | [address] | | | [place] | | 1979 | [phone] | [place] | | | [place] | | | [phone] | [phone] | + +--------+ +--------+ + +
--- OUTSIDE RECORDS SUMMARY | ~2019-06-23 | XMS | Clinical Summary ---
Demographics + + + | Address | [address] | | | [place] [address] | + + + | Home Phone | | + + + | Preferred Language | Unknown | + + + | Marital Status | | + + + | Nondenominational Affiliation | 1013 | + + + | Race | Unknown | + + + | Ethnic Group | Unknown | + + + Author + + + | Author | [facility] | | | and [place] | + + + | Organization | [facility] | | | and [...] Team Providers + +------+ + | Care Swedish Masseuse Name | Role | Phone | + +------+ + | Druan Trevino MD | PCP | | + [...]
--- OUTSIDE RECORDS SUMMARY | ~2019-06-23 | XMS | Encounter Summary ---
Demographics + + + | Address | [address] | | | [place] [address] | + + + | Home Phone | | + + + | Preferred Language | Unknown | + + + | Marital Status | | + + + | Latter Day Affiliation | 1013 | + + + | Race | Unknown | + + + | Ethnic Group | Unknown | + + + Author + + + | Author | [facility] | | | and [place] | + + + | Organization | [facility] | | [...] Team Providers + +------+ + | Care Delivery Professional Name | Role | Phone | + +------+ + PCP | Unavailable | + +------+ + Encounter Details +--------+ + + + + | Date | Type | Department | Care Team | Description | +--------+ + + + + | 11/30/ | Hospital | [facility] | Conversion | Pain | | 2016 | Encounter | CONVERSION [address] | Transaction, | | | | [address] | Provider Unknown | | | | | [place], [place] | | | | | | [address] | (Fax) | | | | | [phone] | | | +--------+ + + + [...]
--- OUTSIDE RECORDS SUMMARY | ~2019-06-23 | XMS | Clinical Summary ---
Demographics + + + | Address | [address] | | | [place] [address] | + + + | Home Phone | | + + + | Preferred Language | Unknown | + + + | Marital Status | | + + + | Scientology Affiliation | 1013 | + + + | Race | Unknown | + + + | Ethnic Group | Unknown | + + + Author + + + | Author | [facility] | | | and [place] | + + + | Organization | [facility] | | | [...] Providers + +------+ + | Care Business Proposal Rep Name | Role | Phone | + [...]
--- OUTSIDE RECORDS SUMMARY | ~2019-06-23 | XMS | Encounter Summary ---
Demographics + + + | Address | [address] | | | [place] [address] | + + + | Home Phone | | + + + | Preferred Language | Unknown | + + + | Marital Status | | + + + | Advent Affiliation | 1013 | + + + | Race | Unknown | + + + | Ethnic Group | Unknown | + + + Author + + + | Author | [facility] | | | and [place] | + + + | Organization | [facility] | | | and [...] Team Providers + +------+ + | Care Graduating Machine Operator Name | Role | Phone | + +------+ + PCP | Unavailable | + +------+ + Encounter Details +--------+ + + + + | Date | Type | Department | Care Team | Description | +--------+ + + + + | 11/30/ | Hospital | [facility] | Conversion | Pain | | 2016 | Encounter | CONVERSION [address] | Transaction, | | | | | [address] | Provider Unknown | | | | | [place], [place] | | | | | | [address] | (Fax) | | | | | [phone] | | | +--------+ + + + [...]
--- OUTSIDE RECORDS SUMMARY | ~2019-06-23 | XMS | Encounter Summary ---
Demographics + + + | Address | [address] | | | [place] [address] | + + + | Home Phone | | + + + | Preferred Language | Unknown | + + + | Marital Status | | + + + | Moravian Affiliation | 1013 | + + + | Race | Unknown | + + + | Ethnic Group | Unknown | + + + Author + + + | Author | [facility] | | | and [place] | + + + | Organization | [facility] | | | [...] Team Providers + +------+ + | Care Internal Recruiter Name | Role | Phone | + +------+ + PCP | Unavailable | + +------+ + Encounter Details +--------+ + + + + | Date | Type | Department | Care Team | Description | +--------+ + + + + | 07/12/ | Hospital | [facility] | Robbi Cazares, | Nephrolithiasis; | | 2017 | Encounter | [facility] | DO [address] | Ureteral stent | | | | [address] | [place] [address] | retained; Acute | | | | [place], [place] | [phone] | cystitis with | | | | [address] | | hematuria | | | | [phone] | | | +--------+ + + + [...] Note by Patricia Herrera RN at 07/12/16 2199 Author: Patricia Herrera RN Service: (none) Author Type: Registered Nurse Filed: 07/12/16 5363 Date of Service: 07/12/161258 Status: Signed Heavy Equipment Sales Associate: Patricia Herrera RN (Registered Nurse) Pt and [...] Date of Service: 07/12/16 1116 Status: Signed Heavy Equipment Sales Associate: Amy Hurley RN (Registered Nurse) Awaiting return of healthcare or medical in order to discuss discharge instructions and discharge pa tient home. onver dario Transaction, Provider Unknown - 07/12/2016 10:10 AM PST Progress Notes by Grace Rodriguez RN at 07/12/16 1010 Author: Grace Rodriguez RN Service: (none) Author Type: Registered Nurse Filed: 07/12/16 1011 Date of Service: 07/12/16 1010 Status: Signed Heavy Equipment Sales Associate: Grace Rodriguez RN (Registered Nurse) Pt's ride [...]
--- OUTSIDE RECORDS SUMMARY | ~2019-06-23 | XMS | Encounter Summary ---
Demographics + + + | Address | [address] | | | [place] [address] | + + + | Home Phone | | + + + | Preferred Language | Unknown | + + + | Marital Status | | + + + | Druze Affiliation | 1013 | + + + | Race | Unknown | + + + | Ethnic Group | Unknown | + + + Author + + + | Author | [facility] | | | and [place] | + + + | Organization | [facility] | | | and [...] Team Providers + +------+ + | Care Template Storage Clerk Name | Role | Phone | + +------+ + PCP | Unavailable | + +------+ + Encounter Details +--------+ + + + + | Date | Type | Department | Care Team | Description | +--------+ + + + + | 07/20/ | Hospital | [facility] | Robbi Cazares, | | | 2017 | Encounter | [facility] | DO [address] | | | | | CLINICAL LABORATORY | [place] [address] | | | | | [address] | [phone] | | | | | [place], [place] | | | | | | [address] | | | | | | [phone] | | | +--------+ + + + [...] LAB | | Testing performed at [facility], [address] [place] [address] | | | [place] [address] COMPONENT 1 SEE | | | BELOW CALCIUM OXALATE DIHYDRATE (WEDDELLITE) 15% CALCIUM OXALATE | | | MONOHYDRATE (WHEWELLITE) 70% CARBONATE APATITE (DAHLLITE) 15% | | | Testing performed at [facility], [address] [place] [address], [place] | | | [place] [address] COMPONENT 2 NOT | | | REPORTED Testing performed at [facility], [address] [place] [address] | | | [facility], [place] [address] STONE WEIGHT | | | 0.0630 Testing performed at [facility], [facility] | | | [facility], [place] [address] | | + + + + +---------+ + + | Performing | Address | City/State/Zipcode | Phone Number | | Organization | | | | + +---------+ + + | EXTERNAL LAB | | | | + +---------+ + + documented in this encounter Visit Diagnoses Not on filedocumented in this encounter"
--- OUTSIDE RECORDS SUMMARY | ~2019-06-23 | XMS | Encounter Summary ---
Demographics + + + | Address | [address] | | | [place] [address] | + + + | Home Phone | | + + + | Preferred Language | Unknown | + + + | Marital Status | | + + + | Latter-Day Affiliation | 1013 | + + + | Race | Unknown | + + + | Ethnic Group | Unknown | + + + Author + + + | Author | [facility] | | | and [place] | + + + | Organization | [facility] | [...] Team Providers + +------+ + | Care Smoking Pipe Maker Name | Role | Phone | + +------+ + PCP | Unavailable | + +------+ + Encounter Details +--------+ + + + + | Date | Type | Department | Care Team | Description | +--------+ + + + + | 07/03/ | Emergency | [facility] | Juve Sawyer DO | Acute cystitis with | | 2017 - | | [facility] | [address] | hematuria | | | | [facility] | [place], [place] | | | 07/04/ | | [address] | [address] | | | 2016 | | [place] | [phone] | | | | | [address] | | | | | | [phone] | | | +--------+ + + + [...] EXTERNAL | | | | performed at [facility], [address] | | LAB | | | | [address], | | | | | | [place] [address] | | | | + + + + + + | Clarity | CLOUDYComment: Testing | | EXTERNAL | | | | performed at [facility], [address] | | LAB | | | | [address], | | | | | | [place] [address] | | | | + + + + + + | Specific | 1.025Comment: Testing | 1.001 - 1.035 | EXTERNAL | | | Pollard | performed at [facility], [address] | | LAB | | | | [address], | | | | | | [place] [address] | | | | + + + + + + | Leukocyte | TRACE (A)Comment: | | EXTERNAL | | | Esterase, | Testing performed at | | LAB | | | Urine | [facility], [address], | | | | | | [place] [address] | | | | + + + + + + | Nitrite, | NEGATIVEComment: Testing | | EXTERNAL | | | Urine | performed at [facility], [address] | | LAB | | | | [address], | | | | | | [place] [address] | | | | + + + + + + | Urobilinoge | 0.2Comment: Testing | mg/dL | EXTERNAL | | | n, Urine | performed at [facility], [address] | | LAB | | | | [address] [place], | | | | | | [place] [address] | | | | + + + + + + | Protein, | 100 (A)Comment: Testing | mg/dL | EXTERNAL | | | Urine | performed at [facility], [address] | | LAB | | | | [address], | | | | | | [place] [address] | | | | + + + + + + | pH, Urine | 6.5Comment: Testing | 4.6 - 8.0 | EXTERNAL | | | | performed at [facility], [address] | | LAB | | | | [address], | | | | | | [place] [address] | | | | + + + + + + | Blood, | LARGE (A)Comment: | | EXTERNAL | | | Urine | Testing performed at | | LAB | | | | [facility], [address], | | | | | | [place] [address] | | | | + + + + + + | Ketones | TRACE (A)Comment: | mg/dL | EXTERNAL | | | | Testing performed at | | LAB | | | | [facility], [address], | | | | | | [place] [address] | | | | + + + + + + | Bilirubin, | NEGATIVEComment: Testing | | EXTERNAL | | | Urine | performed at [facility], [address] | | LAB | | | | [address], | | | | | | [place] [address] | | | | + + + + + + | Glucose, | NEGATIVEComment: Testing | mg/dL | EXTERNAL | | | Urine | performed at [facility], [address] | | LAB | | | | [address], | | | | | | [place] [address] | | | | + + + [...] | | | Ur | performed at [facility], [address] | | LAB | | | | [address], | | | | | | [place] [address] | | | | + + + [...] EXTERNAL | | | | performed at [facility], [address] | | LAB | | | | [address], | | | | | | [place] [address] | | | | + + + + + + | RBC, UA | >100Comment: Testing | 0 - 5 /hpf | EXTERNAL | | | | performed at [facility], [address] | | LAB | | | | [address], | | | | | | [place] [address] | | | | + + + + + + | Epithelial | 26-50Comment: Testing | /lpf | EXTERNAL | | | Cells | performed at [facility], [address] | | LAB | | | | [address], | | | | | | [place] [address] | | | | + + + + + + | Bacteria, | 3+ (A)Comment: Testing | | EXTERNAL | | | UA | performed at [facility], [address] | | LAB | | | | [address], | | | | | | [place] [address] | | | | + + + + + + | MUCUS UA | 3+Comment: Testing | | EXTERNAL | | | | performed at [facility], [address] | | LAB | | | | [address], | | | | | | [place] [address] | | | | + + + + + + | Urinalysis | CULTURE TO | | EXTERNAL | | | Comments | FOLLOWComment: Testing | | LAB | | | | performed at [facility], [address] | | | | | | [address], | | | | | | [place] [address] | | | | + + + [...] K/uL | LAB | | | | [facility], [address], | | | | | | [place] [address] | | | | + + + + + + | RED CELL | 4.24Comment: Testing | 3.70 - 5.10 | EXTERNAL | | | COUNT | performed at [facility], [address] | M/uL | LAB | | | | [address], | | | | | | [place] [address] | | | | + + + + + + | Hgb | 13.3Comment: Testing | 11.3 - 15.5 | EXTERNAL | | | | performed at [facility], [address] | g/dL | LAB | | | | [address], | | | | | | [place] [address] | | | | + + + + + + | Hematocrit, | 39.6Comment: Testing | 34.0 - 46.0 % | EXTERNAL | | | POC | performed at [facility], [address] | | LAB | | | | [address] [place], | | | | | | [place] [address] | | | | + + + + + + | MCV | 93.3Comment: Testing | 80.0 - 100.0 fl | EXTERNAL | | | | performed at [facility], [address] | | LAB | | | | [address], | | | | | | [place] [address] | | | | + + + + + + | MCH | 31.4Comment: Testing | 27.0 - 34.0 pg | EXTERNAL | | | | performed at [facility], [address] | | LAB | | | | [address], | | | | | | [place] [address] | | | | + + + + + + | MCHC | 33.7Comment: Testing | 32.0 - 35.5 | EXTERNAL | | | | performed at [facility], [address] | g/dL | LAB | | | | [address], | | | | | | [place] [address] | | | | + + + + + + | RDW-CV | 41.1Comment: Testing | 37 - 53 fl | EXTERNAL | | | | performed at [facility], [address] | | LAB | | | | [address], | | | | | | [place] [address] | | | | + + + + + + | Platelet | 429 (H)Comment: Testing | 150 - 400 K/uL | EXTERNAL | | | Count | performed at [facility], [address] | | LAB | | | Plasma | [address], | | | | | | [place] [address] | | | | + + + + + + | MPV | 7.8Comment: Testing | fl | EXTERNAL | | | | performed at [facility], [address] | | LAB | | | | [address], | | | | | | [place] [address] | | | | + + + + + + | Differentia | AUTOMATEDComment: | | EXTERNAL | | | l Type | Testing performed at | | LAB | | | | [facility], [address], | | | | | | [place] [address] | | | | + + + + + + | % Segmented | 64.58Comment: Testing | % | EXTERNAL | | | | performed at [facility], [address] | | LAB | | | Neutrophils | [address], | | | | | | [place] [address] | | | | + + + + + + | % | 22.96Comment: Testing | % | EXTERNAL | | | Lymphocytes | performed at [facility], [address] | | LAB | | | | [address], | | | | | | [place] [address] | | | | + + + + + + | % Monocytes | 8.89Comment: Testing | % | EXTERNAL | | | | performed at [facility], [address] | | LAB | | | | [address], | | | | | | [place] [address] | | | | + + + + + + | % | 2.53Comment: Testing | % | EXTERNAL | | | Eosinophils | performed at [facility], [address] | | LAB | | | | [address], | | | | | | [place] [address] | | | | + + + + + + | % Basophils | 1.04Comment: Testing | % | EXTERNAL | | | | performed at [facility], [address] | | LAB | | | | [address], | | | | | | [place] [address] | | | | + + + + + + | Absolute | 7.66 (H)Comment: Testing | 1.90 - 7.40 | EXTERNAL | | | Segmented | performed at [facility], [address] | K/uL | LAB | | | Neutrophils | [address], | | | | | | [place] [address] | | | | + + + + + + | Absolute | 2.72Comment: Testing | 1.00 - 3.90 | EXTERNAL | | | Lymphocytes | performed at [facility], [address] | K/uL | LAB | | | | [address], | | | | | | [place] [address] | | | | + + + + + + | Absolute | 1.05 (H)Comment: Testing | 0.00 - 0.80 | EXTERNAL | | | Monocytes | performed at [facility], [address] | K/uL | LAB | | | | [address], | | | | | | [place] [address] | | | | + + + + + + | Absolute | 0.30Comment: Testing | 0.00 - 0.50 | EXTERNAL | | | Eosinophils | performed at [facility], [address] | K/uL | LAB | | | | [address], | | | | | | [place] [address] | | | | + + + + + + | Absolute | 0.12 (H)Comment: Testing | 0.00 - 0.10 | EXTERNAL | | | Basophils | performed at [facility], [address] | K/uL | LAB | | | | [address] [place], | | | | | | [place] [address] | | | | + + + [...] EXTERNAL | | | | performed at [facility], [address] | | LAB | | | | [address], | | | | | | [place] [address] | | | | + + + [...] EXTERNAL | | | | performed at [facility], [address] | mmol/L | LAB | | | | [address], | | | | | | [place] [address] | | | | + + + + + + | K | 4.0Comment: Testing | 3.5 - 4.9 | EXTERNAL | | | | performed at [facility], [address] | mmol/L | LAB | | | | [address], | | | | | | [place] [address] | | | | + + + + + + | Cl | 103Comment: Testing | 99 - 109 mmol/L | EXTERNAL | | | | performed at [facility], [address] | | LAB | | | | [address], | | | | | | [place] [address] | | | | + + + + + + | CO2 | 28Comment: Testing | 23 - 32 mmol/L | EXTERNAL | | | | performed at [facility], [address] | | LAB | | | | [address], | | | | | | [place] [address] | | | | + + + + + + | Anion Gap | 12Comment: Testing | 5 - 20 mmol/L | EXTERNAL | | | | performed at [facility], [address] | | LAB | | | | [address] [place], | | | | | | [place] [address] | | | | + + + + + + | Glucose, | 84Comment: Testing | 65 - 99 mg/dL | EXTERNAL | | | Fasting | performed at [facility], [address] | | LAB | | | | [address] [place], | | | | | | [place] [address] | | | | + + + + + + | BUN | 22Comment: Testing | 8 - 25 mg/dL | EXTERNAL | | | | performed at [facility], [address] | | LAB | | | | [address] [place], | | | | | | [place] [address] | | | | + + + + + + | Creatinine | 0.98Comment: Testing | 0.50 - 1.00 | EXTERNAL | | | | performed at [facility], [address] | mg/dL | LAB | | | | [address], | | | | | | [place] [address] | | | | + + + + + + | BUN/Creatin | 22Comment: Testing | | EXTERNAL | | | ine Ratio | performed at [facility], [address] | | LAB | | | | [address], | | | | | | [place] [address] | | | | + + + + + + | Calcium | 8.8Comment: Testing | 8.5 - 10.5 | EXTERNAL | | | | performed at [facility], [address] | mg/dL | LAB | | | | [address], | | | | | | [place] [address] | | | | + + + + + + | Protein, | 7.8Comment: Testing | 6.3 - 8.2 g/dL | EXTERNAL | | | Total | performed at [facility], [address] | | LAB | | | | [address], | | | | | | [place] [address] | | | | + + + + + + | Albumin | 4.3Comment: Testing | 3.6 - 5.0 g/dL | EXTERNAL | | | | performed at [facility], [address] | | LAB | | | | [address], | | | | | | [place] [address] | | | | + + + + + + | Globulin | 3.5Comment: Testing | 1.3 - 4.9 g/dL | EXTERNAL | | | | performed at [facility], [address] | | LAB | | | | [address], | | | | | | [place] [address] | | | | + + + + + + | A/G Ratio | 1.2Comment: Testing | 1.0 - 2.4 | EXTERNAL | | | | performed at [facility], [address] | | LAB | | | | [address], | | | | | | [place] [address] | | | | + + + + + + | Bilirubin | 0.5Comment: Testing | 0.1 - 1.5 mg/dL | EXTERNAL | | | Total | performed at [facility], [address] | | LAB | | | | [address], | | | | | | [place] [address] | | | | + + + + + + | ALP, | 67Comment: Testing | 35 - 115 U/L | EXTERNAL | | | External | performed at [facility], [address] | | LAB | | | | [address], | | | | | | [place] [address] | | | | + + + + + + | AST | 14Comment: Testing | 10 - 45 U/L | EXTERNAL | | | | performed at [facility], [address] | | LAB | | | | [address], | | | | | | [place] [address] | | | | + + + + + + | ALT | 18Comment: Testing | 10 - 65 U/L | EXTERNAL | | | | performed at [facility], [address] | | LAB | | | | [address] [place], | | | | | | [place] [address] | | | | + + + [...] | | | | | | at [facility], [address] | | | | | | [place] | | | | | | [address] | | | | + + + [...]
--- OUTSIDE RECORDS SUMMARY | ~2019-06-23 | XMS | Encounter Summary ---
Demographics + + + | Address | [address] | | | [place] [address] | + + + | Home Phone [...] Team Providers + +------+ + | Care Follow Up Rep Name | Role | Phone | + +------+ + PCP | Unavailable | + +------+ + Encounter Details +--------+ + + + + | Date | Type | Department | Care Team | Description | +--------+ + + + + | 07/12/ | Hospital | [facility] | Robbi Cazares, | Nephrolithiasis; | | 2017 | Encounter | [facility] | DO [address] | Ureteral stent | | | | [address] | [place] [address] | retained; Acute | | | | [place], [place] | [phone] | cystitis with | | | | [address] | | hematuria | | | | [phone] | | | +--------+ + + + [...] Note by Patricia Herrera RN at 07/12/16 7509 Author: Patricia Herrera RN Service: (none) Author Type: Registered Nurse Filed: 07/12/16 8435 Date of Service: 07/12/161258 Status: Signed Security Rover: Patricia Herrera RN (Registered Nurse) Pt and [...] Date of Service: 07/12/16 1116 Status: Signed Security Rover: Amy Hurley RN (Registered Nurse) Awaiting return of career development director in order to discuss discharge instructions and discharge pa tient home. onver dario Transaction, Provider Unknown - 07/12/2016 10:10 AM PST Progress Notes by Grace Rodriguez RN at 07/12/16 1010 Author: Grace Rodriguez RN Service: (none) Author Type: Registered Nurse Filed: 07/12/16 1011 Date of Service: 07/12/16 1010 Status: Signed Security Rover: Grace Rodriguez RN (Registered Nurse) Pt's ride [...]
--- OUTSIDE RECORDS SUMMARY | ~2019-06-23 | XMS | Encounter Summary ---
Demographics + + + | Address | [address] | | | [place] [address] | + + + | Home Phone | | + + + | Preferred Language | Unknown | + + + | Marital Status | | + + + | Rastafari Affiliation | 1013 | + + + | Race | Unknown | + + + | Ethnic Group | Unknown | + + + Author + + + | Author | [facility] | | | and [place] | + + + | Organization | [facility] | | [...] Team Providers + +------+ + | Care Funeral Greeter Name | Role | Phone | + +------+ + PCP | Unavailable | + +------+ + Encounter Details +--------+ + + + + | Date | Type | Department | Care Team | Description | +--------+ + + + + | 07/20/ | Hospital | [facility] | Robbi Cazares, | | | 2017 | Encounter | [facility] | DO [address] | | | | | CLINICAL LABORATORY | [place] [address] | | | | | [address] | [phone] | | | | | [place], [place] | | | | | | [address] | | | | | | [phone] | | | +--------+ + + + [...] LAB | | Testing performed at [facility], [address] [place] [address] | | | [place] [address] COMPONENT 1 SEE | | | BELOW CALCIUM OXALATE DIHYDRATE (WEDDELLITE) 15% CALCIUM OXALATE | | | MONOHYDRATE (WHEWELLITE) 70% CARBONATE APATITE (DAHLLITE) 15% | | | Testing performed at [facility], [address] [place] [address], [place] | | | [place] [address] COMPONENT 2 NOT | | | REPORTED Testing performed at [facility], [address] [place] [address] | | | [facility], [place] [address] STONE WEIGHT | | | 0.0630 Testing performed at [facility] | | | [facility], [place] [address] | | + + + + +---------+ + + | Performing | Address | City/State/Zipcode | Phone Number | | Organization | | | | + +---------+ + + | EXTERNAL LAB | | | | + +---------+ + + documented in this encounter Visit Diagnoses Not on filedocumented in this encounter"
--- OUTSIDE RECORDS SUMMARY | ~2019-06-23 | XMS | Encounter Summary ---
Demographics + + + | Address | [address] | | | [place] [address] | + + + | Home Phone | | + + + | Preferred Language | Unknown | + + + | Marital Status | | + + + | Confucianism Affiliation | 1013 | + + + | Race | Unknown | + + + | Ethnic Group | Unknown | + + + Author + + + | Author | [facility] | | | and [place] | + + + | Organization | [facility] | | [...] Team Providers + +------+ + | Care Senior Facilities Manager Name | Role | Phone | + +------+ + PCP | Unavailable | + +------+ + Encounter Details +--------+ + + + + | Date | Type | Department | Care Team | Description | +--------+ + + + + | 07/03/ | Emergency | [facility] | Juve Sawyer DO | Acute cystitis with | | 2017 - | | [facility] [place] | [address] | hematuria | | | | [facility] [place] | [place], [place] | | | 07/04/ | | [address] | [address] | | | 2016 | | [place] | [phone] | | | | | [address] | | | | | | [phone] | | | +--------+ + + + [...] EXTERNAL | | | | performed at [facility], [address] | | LAB | | | | [address], | | | | | | [place] [address] | | | | + + + + + + | Clarity | CLOUDYComment: Testing | | EXTERNAL | | | | performed at [facility], [address] | | LAB | | | | [address], | | | | | | [place] [address] | | | | + + + + + + | Specific | 1.025Comment: Testing | 1.001 - 1.035 | EXTERNAL | | | [place] | performed at [facility], [address] | | LAB | | | | [address], | | | | | | [place] [address] | | | | + + + + + + | Leukocyte | TRACE (A)Comment: | | EXTERNAL | | | Esterase, | Testing performed at | | LAB | | | Urine | [facility], [address], | | | | | | [place] [address] | | | | + + + + + + | Nitrite, | NEGATIVEComment: Testing | | EXTERNAL | | | Urine | performed at [facility], [address] | | LAB | | | | [address], | | | | | | [place] [address] | | | | + + + + + + | Urobilinoge | 0.2Comment: Testing | mg/dL | EXTERNAL | | | n, Urine | performed at [facility], [address] | | LAB | | | | [address], | | | | | | [place] [address] | | | | + + + + + + | Protein, | 100 (A)Comment: Testing | mg/dL | EXTERNAL | | | Urine | performed at [facility], [address] | | LAB | | | | [address], | | | | | | [place] [address] | | | | + + + + + + | pH, Urine | 6.5Comment: Testing | 4.6 - 8.0 | EXTERNAL | | | | performed at [facility], [address] | | LAB | | | | [address], | | | | | | [place] [address] | | | | + + + + + + | Blood, | LARGE (A)Comment: | | EXTERNAL | | | Urine | Testing performed at | | LAB | | | | [facility], [address], | | | | | | [place] [address] | | | | + + + + + + | Ketones | TRACE (A)Comment: | mg/dL | EXTERNAL | | | | Testing performed at | | LAB | | | | [facility], [address], | | | | | | [place] [address] | | | | + + + + + + | Bilirubin, | NEGATIVEComment: Testing | | EXTERNAL | | | Urine | performed at [facility], [address] | | LAB | | | | [address], | | | | | | [place] [address] | | | | + + + + + + | Glucose, | NEGATIVEComment: Testing | mg/dL | EXTERNAL | | | Urine | performed at [facility], [address] | | LAB | | | | [address], | | | | | | [place] [address] | | | | + + + [...] | | | Ur | performed at [facility], [address] | | LAB | | | | [address], | | | | | | [place] [address] | | | | + + + [...] EXTERNAL | | | | performed at [facility], [address] | | LAB | | | | [address], | | | | | | [place] [address] | | | | + + + + + + | RBC, UA | >100Comment: Testing | 0 - 5 /hpf | EXTERNAL | | | | performed at [facility], [address] | | LAB | | | | [address], | | | | | | [place] [address] | | | | + + + + + + | Epithelial | 26-50Comment: Testing | /lpf | EXTERNAL | | | Cells | performed at [facility], [address] | | LAB | | | | [address], | | | | | | [place] [address] | | | | + + + + + + | Bacteria, | 3+ (A)Comment: Testing | | EXTERNAL | | | UA | performed at [facility], [address] | | LAB | | | | [address], | | | | | | [place] [address] | | | | + + + + + + | MUCUS UA | 3+Comment: Testing | | EXTERNAL | | | | performed at [facility], [address] | | LAB | | | | [address], | | | | | | [place] [address] | | | | + + + + + + | Urinalysis | CULTURE TO | | EXTERNAL | | | Comments | FOLLOWComment: Testing | | LAB | | | | performed at [facility], [address] | | | | | | [address], | | | | | | [place] [address] | | | | + + + [...] K/uL | LAB | | | | [facility], [address], | | | | | | [place] [address] | | | | + + + + + + | RED CELL | 4.24Comment: Testing | 3.70 - 5.10 | EXTERNAL | | | COUNT | performed at [facility], [address] | M/uL | LAB | | | | [address], | | | | | | [place] [address] | | | | + + + + + + | Hgb | 13.3Comment: Testing | 11.3 - 15.5 | EXTERNAL | | | | performed at [facility], [address] | g/dL | LAB | | | | [address], | | | | | | [place] [address] | | | | + + + + + + | Hematocrit, | 39.6Comment: Testing | 34.0 - 46.0 % | EXTERNAL | | | POC | performed at [facility], [address] | | LAB | | | | [address], | | | | | | [place] [address] | | | | + + + + + + | MCV | 93.3Comment: Testing | 80.0 - 100.0 fl | EXTERNAL | | | | performed at [facility], [address] | | LAB | | | | [address], | | | | | | [place] [address] | | | | + + + + + + | MCH | 31.4Comment: Testing | 27.0 - 34.0 pg | EXTERNAL | | | | performed at [facility], [address] | | LAB | | | | [address], | | | | | | [place] [address] | | | | + + + + + + | MCHC | 33.7Comment: Testing | 32.0 - 35.5 | EXTERNAL | | | | performed at [facility], [address] | g/dL | LAB | | | | [address], | | | | | | [place] [address] | | | | + + + + + + | RDW-CV | 41.1Comment: Testing | 37 - 53 fl | EXTERNAL | | | | performed at [facility], [address] | | LAB | | | | [address], | | | | | | [place] [address] | | | | + + + + + + | Platelet | 429 (H)Comment: Testing | 150 - 400 K/uL | EXTERNAL | | | Count | performed at [facility], [address] | | LAB | | | Plasma | [address], | | | | | | [place] [address] | | | | + + + + + + | MPV | 7.8Comment: Testing | fl | EXTERNAL | | | | performed at [facility], [address] | | LAB | | | | [address], | | | | | | [place] [address] | | | | + + + + + + | Differentia | AUTOMATEDComment: | | EXTERNAL | | | l Type | Testing performed at | | LAB | | | | [facility], [address], | | | | | | [place] [address] | | | | + + + + + + | % Segmented | 64.58Comment: Testing | % | EXTERNAL | | | | performed at [facility], [address] | | LAB | | | Neutrophils | [address], | | | | | | [place] [address] | | | | + + + + + + | % | 22.96Comment: Testing | % | EXTERNAL | | | Lymphocytes | performed at [facility], [address] | | LAB | | | | [address], | | | | | | [place] [address] | | | | + + + + + + | % Monocytes | 8.89Comment: Testing | % | EXTERNAL | | | | performed at [facility], [address] | | LAB | | | | [address], | | | | | | [place] [address] | | | | + + + + + + | % | 2.53Comment: Testing | % | EXTERNAL | | | Eosinophils | performed at [facility], [address] | | LAB | | | | [address], | | | | | | [place] [address] | | | | + + + + + + | % Basophils | 1.04Comment: Testing | % | EXTERNAL | | | | performed at [facility], [address] | | LAB | | | | [address], | | | | | | [place] [address] | | | | + + + + + + | Absolute | 7.66 (H)Comment: Testing | 1.90 - 7.40 | EXTERNAL | | | Segmented | performed at [facility], [address] | K/uL | LAB | | | Neutrophils | [address], | | | | | | [place] [address] | | | | + + + + + + | Absolute | 2.72Comment: Testing | 1.00 - 3.90 | EXTERNAL | | | Lymphocytes | performed at [facility], [address] | K/uL | LAB | | | | [address], | | | | | | [place] [address] | | | | + + + + + + | Absolute | 1.05 (H)Comment: Testing | 0.00 - 0.80 | EXTERNAL | | | Monocytes | performed at [facility], [address] | K/uL | LAB | | | | [address], | | | | | | [place] [address] | | | | + + + + + + | Absolute | 0.30Comment: Testing | 0.00 - 0.50 | EXTERNAL | | | Eosinophils | performed at [facility], [address] | K/uL | LAB | | | | [address], | | | | | | [place] [address] | | | | + + + + + + | Absolute | 0.12 (H)Comment: Testing | 0.00 - 0.10 | EXTERNAL | | | Basophils | performed at [facility], [address] | K/uL | LAB | | | | [address], | | | | | | [place] [address] | | | | + + + [...] EXTERNAL | | | | performed at [facility], [address] | | LAB | | | | [address], | | | | | | [place] [address] | | | | + + + [...] EXTERNAL | | | | performed at [facility], [address] | mmol/L | LAB | | | | [address], | | | | | | [place] [address] | | | | + + + + + + | K | 4.0Comment: Testing | 3.5 - 4.9 | EXTERNAL | | | | performed at [facility], [address] | mmol/L | LAB | | | | [address], | | | | | | [place] [address] | | | | + + + + + + | Cl | 103Comment: Testing | 99 - 109 mmol/L | EXTERNAL | | | | performed at [facility], [address] | | LAB | | | | [address], | | | | | | [place] [address] | | | | + + + + + + | CO2 | 28Comment: Testing | 23 - 32 mmol/L | EXTERNAL | | | | performed at [facility], [address] | | LAB | | | | [address], | | | | | | [place] [address] | | | | + + + + + + | Anion Gap | 12Comment: Testing | 5 - 20 mmol/L | EXTERNAL | | | | performed at [facility], [address] | | LAB | | | | [address], | | | | | | [place] [address] | | | | + + + + + + | Glucose, | 84Comment: Testing | 65 - 99 mg/dL | EXTERNAL | | | Fasting | performed at [facility], [address] | | LAB | | | | [address], | | | | | | [place] [address] | | | | + + + + + + | BUN | 22Comment: Testing | 8 - 25 mg/dL | EXTERNAL | | | | performed at [facility], [address] | | LAB | | | | [address], | | | | | | [place] [address] | | | | + + + + + + | Creatinine | 0.98Comment: Testing | 0.50 - 1.00 | EXTERNAL | | | | performed at [facility], [address] | mg/dL | LAB | | | | [address], | | | | | | [place] [address] | | | | + + + + + + | BUN/Creatin | 22Comment: Testing | | EXTERNAL | | | ine Ratio | performed at [facility], [address] | | LAB | | | | [address], | | | | | | [place] [address] | | | | + + + + + + | Calcium | 8.8Comment: Testing | 8.5 - 10.5 | EXTERNAL | | | | performed at [facility], [address] | mg/dL | LAB | | | | [address], | | | | | | [place] [address] | | | | + + + + + + | Protein, | 7.8Comment: Testing | 6.3 - 8.2 g/dL | EXTERNAL | | | Total | performed at [facility], [address] | | LAB | | | | [address], | | | | | | [place] [address] | | | | + + + + + + | Albumin | 4.3Comment: Testing | 3.6 - 5.0 g/dL | EXTERNAL | | | | performed at [facility], [address] | | LAB | | | | [address], | | | | | | [place] [address] | | | | + + + + + + | Globulin | 3.5Comment: Testing | 1.3 - 4.9 g/dL | EXTERNAL | | | | performed at [facility], [address] | | LAB | | | | [address], | | | | | | [place] [address] | | | | + + + + + + | A/G Ratio | 1.2Comment: Testing | 1.0 - 2.4 | EXTERNAL | | | | performed at [facility], [address] | | LAB | | | | [address], | | | | | | [place] [address] | | | | + + + + + + | Bilirubin | 0.5Comment: Testing | 0.1 - 1.5 mg/dL | EXTERNAL | | | Total | performed at [facility], [address] | | LAB | | | | [address], | | | | | | [place] [address] | | | | + + + + + + | ALP, | 67Comment: Testing | 35 - 115 U/L | EXTERNAL | | | External | performed at [facility], [address] | | LAB | | | | [address], | | | | | | [place] [address] | | | | + + + + + + | AST | 14Comment: Testing | 10 - 45 U/L | EXTERNAL | | | | performed at [facility], [address] | | LAB | | | | [address], | | | | | | [place] [address] | | | | + + + + + + | ALT | 18Comment: Testing | 10 - 65 U/L | EXTERNAL | | | | performed at [facility], [address] | | LAB | | | | [address], | | | | | | [place] [address] | | | | + + + [...] | | | | | | at [facility], [address] | | | | | | [address] | | | | | | [address] | | | | + + + [...]
--- OUTSIDE RECORDS SUMMARY | 2019-06-23 09:08 | XMS ---
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 Care History Medical/Surgical 03/25/2019 [facility] - PATIENT HAS A FOLLOW UP APT WITH DR ANDERSON- ON 04/01/19 [place] VISIT COUNT (12 MO.) [address] [facility] NOTE: Visits indicate total known visits. ED/UCC VISIT TRACKING (12 MO.) 06/23/2019 09:05 [facility] [place] [facility] Emergency COMPLAINT: - ABD PAIN 05/10/2019 16:39 [facility] [place] TYPE: Emergency COMPLAINT: - CERVICAL MISCARRIAGE DIAGNOSES: - Incomplete spontaneous without complication - Nicotine dependence, unspecified, uncomplicated - Abnormal uterine and vaginal bleeding, unspecified 03/25/2019 15:05 [facility] [place] TYPE: Emergency COMPLAINT: - POSSIBLE MISCARRIAGE DIAGNOSES: - Personal history of urinary calculi - Abnormal uterine and vaginal bleeding, unspecified - Allergy status to oth drug/meds/biol subst status - Bee allergy status - Nicotine dependence, unspecified, uncomplicated - Complete or unsp spontaneous without complication - Other computer terminal operator (current) drug therapy 03/24/2019 11:50 [facility] [place] TYPE: Emergency COMPLAINT: - PREG BLEEDING DIAGNOSES: - Bee allergy status - Migraine, unsp, not intractable, without status migrainosus - Complete or unsp spontaneous without complication - Complete or unsp spontaneous without complication - Other jail (current) drug therapy - Nicotine dependence, unspecified, uncomplicated - Allergy status to oth drug/meds/biol subst status 03/20/2019 05:14 [facility] [place] TYPE: Emergency COMPLAINT: - VAGINAL BLEEDING DIAGNOSES: - Hemorrhage in early , unspecified - Personal history of urinary calculi - Nicotine dependence, unspecified, uncomplicated - Other computer terminal operator (current) drug therapy - Bee allergy status [...] calculi - Bee allergy status - Other jail (current) drug therapy INPATIENT VISIT TRACKING (12 MO.) 05/10/2019 16:39 [facility] [place] TYPE: Observation COMPLAINT: - CERVICAL MISCARRIAGE DIAGNOSES: - Abnormal uterine and vaginal bleeding, unspecified - Incomplete spontaneous without complication - Nicotine dependence, unspecified, uncomplicated 03/21/2019 09:53 [facility] [place] TYPE: Observation COMPLAINT: - POSSIBLE ECTOPIC. 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
[2019-06-23] MEDS ORDERED: PERCOCET 5-3251 EACH PO (13:37)
== END 2019-06-23 13:52 | disposition home or self-care (01) ==
LOC: ED 09:04
DX: N83.202 Unspecified ovarian cyst, left side (principal); F17.200 Nicotine dependence, unspecified, uncomplicated; Z88.8 Allergy status to other drugs, medicaments and biological substances; Z91.030 Bee allergy status; G43.909 Migraine, unspecified, not intractable, without status migrainosus; Z87.442 Personal history of urinary calculi; Z79.899 Other long term (current) drug therapy
CPT/HCPCS: 74177; 76775; 76830; 76856; 80053; 81001; 83690; 84703; 85025; 87210; 87491; 87591; 96361; 99284-25; J1885; J2270; J2405; J3010; J7030; Q9967

== ENCOUNTER 2019-07-11 06:55 | Day surgery (SDC) | payer BC, OTHER ==
[~2019-07-11] VITALS: Ht 167.6 cm; Wt 88.5 kg
--- NOTE | 2019-07-11 10:57 | NUR ---
PT ALERT, ORIENTED AND SUPPORTED BY HER VITO. THEY BOTH SEEMED INFORMED, HAD FEW QUESTIONS AND HAD GOOD VISIT. PT REQUESTED PRAYER, WILL FOLLOW NEEDED
--- NOTE | 2019-07-11 11:46 | NUR ---
07/11/19 1146 Marjorie Weaver 1119: PT ARRIVES TO PACU FROM OR AWAKE AND ALERT. PT MOANING IN PAIN. [employer]IATE WOODROW BRADSHAW AT BEDSIDE. VERBALLY ORDERS FOR PAIN MEDICATION; SEE EMAR. PT ON 6L VIA MASK, SATS GREATER THAN 94%. 1126: WOODROW BRADSHAW CRNA GIVES 100 MCG FENTANYL. 1127: WOODROW BRADSHAW CRNA GIVES 05 MG OF DILAUDID. 1130: PT GRABS AT FACE MASK, ITCING NOSE. RESP EVEN AND UNLABORED, SATS GREATER THAN 94%. 1140: PT CONT TO GRAB AT NOSE STATES "ITCHES SO BAD" O2 MASK CHANGED TO 4 L NC, CONT TO SAT GREATER THAN 94%. RESP EVEN AND UNLABORED.
--- NOTE | 2019-07-11 12:35 | NUR ---
KARL HUGGER ON WARM. CRACKERS AND APPLESAUCE GIVEN. SPOUSE AT BEDSIDE. CALL LIGHT WITHIN REACH. PATIENT HAS NO NON-VERBAL SIGNS OF PAIN. PATIENT RATES PAIN 12/10. PATIENT IS REPOSITIONING HERSELF IN STRETCHER AND TOLERATING THAT WELL. CONTINUOUS PULSE OXIMETER IN PLACE.
--- NOTE | 2019-07-11 13:00 | NUR ---
1253 RN TO ROOM TO ANSWER CALL LIGHT, PT REPORTS 10/10 PAIN. PT REPORTS SHE ATE APPLESAUCE AND DRINKING WATER. O2 REMOVED O2 SAT 97%. 1300 PAIN MEDICATION GIVEN. MD AT BEDSIDE, CONTINUOUS PULSE OX IN PLACE. BED IN LOW AND CALL LIGHT WITHIN REACH. AT BEDSIDE AND EDUCATION GIVEN ON PAIN MEDICATION AND BREATHING. O2 SAT 97%. 1303 PT SITTING UP IN BED AND MOANING OFF AND ON. PT ABLE TO TALK TO MD.
--- NOTE | 2019-07-11 13:30 | NUR ---
CHEESEBURGER AND FRIES ARRIVES FROM DIETARY. PATIENT IS SITTING UP IN BED EATING.
--- NOTE | 2019-07-11 13:39 | NUR ---
PATIENT STANDS AND AMBULATES AROUND HER ROOM AND DOES THAT WELL. HAMPTON BALLOON DEFLATED FOR 8 ML FLUID. HAMPTON DC WNL AND PATIENT TOLERATES THAT WELL. 400 ML BRIGHT YELLOW URINE NOTED TO HAMPTON OVERNIGHT BAG. PATIENT IS BACK IN BED. SCD ARE IN PLACE. SPOUSE REMAINS AT THE BEDSIDE.
--- NOTE | 2019-07-11 14:03 | NUR ---
PATIENT IS UP TO THE BATHROOM WITH HER STANDBY. PATIENT IS UNABLE TO VOID. PATIENT IS BACK IN BED AND HER SPOUSE PRESENTS TO THE NURSE'S STATION AND ASKS FOR ME TO COME TO HER ROOM. PATIENT REPORTS GETTING UP TO THE BATHROOM. EDUCATION COMPLETE REGARDING ASKING FOR HELP WHEN AMBULATING AND PATIENT VERBALIZES UNDERSTANDING. PATIENT REPORTS SHE WAS INCONTINENT OF URINE WHEN SHE GOT BACK INTO BED. LINEN IS CHANGED. DR NAVARRO CALLED AND HE REQUESTS PATIENT STAY UNTIL WE GET A MEASURED VOID. THIS PLAN OF CARE IS RELAYED TO PATIENT AND HER SPOUSE AND BOTH VERBALIZE UNDERSTANDING. CALL LIGHT IS WITHIN REACH.
[2019-07-11] MEDS ORDERED: MOTRIN IB200 MG PO (14:37)
[2019-07-11] MEDS ORDERED: PERCOCET 5-3251 EACH PO (14:37)
--- NOTE | 2019-07-11 14:57 | NUR ---
1430: PATIENT IS UP TO THE BATHROOM WITH MY STANDBY. PATIENT AMBULATES WELL AND VOIDS 200 ML CLEAR, BRIGHT YELLOW URINE. PATIENT REQUESTS DISCHARGE HOME. PATIENT IS GIVEN DISCHARGE INSTRUCTIONS IN PERSENCE OF SPOUSE AND BOTH VERBALIZE UNDERSTANDING OF INSTRUCTIONS. PATIENT IS GETTING DRESSED IN PRESENCE OF SPOUSE. PATIENT TRANSFERS SELF TO WHEELCHAIR AND THEN TO PERSONAL VEHICLE AND SHE IS DISCHARGED HOME.
--- NOTE | 2019-07-15 21:53 | OR ---
[facility] [address], [place] [address] Signed DATE OF OPERATION: 07/11/2019 SURGEON: Lonnie Almendarez MD Patient of Dr. Almendarez. PREOPERATIVE DIAGNOSES: Abnormal uterine bleeding, pelvic pain, and endometriosis. POSTOPERATIVE DIAGNOSES: Abnormal uterine bleeding, pelvic pain, deep infiltrating endometriosis, and pelvic adhesions. PROCEDURES: Total laparoscopic hysterectomy, bilateral salpingo-oophorectomy, lysis of adhesions, and cystoscopy. CALL CENTER ASSOCIATE: Dr. Thakur. ANESTHESIA: General. ESTIMATED BLOOD LOSS: 50 mL. SPECIMEN: Uterus, both tubes and ovaries. DRAINS: Weaver to bladder. PACKING: None. FINDINGS: Cervix thick, closed. Uterus normal size and shape. The anterior cul-de-sac had adhesions in the midline from previous with the bladder somewhat advanced near the lower uterine segment. The posterior cul-de-sac was free of any endometriosis or adhesions. The left tube was normal in length and normal pink fimbriated end. The left Electronically Signed By: LONNIE ALMENDAREZ MD 07/15/19 2153 PATIENT NAME: ANNE MARIE BAZAN OPERATIVE REPORT DATE OF : 78 REPORT #: [id number] PHYSICIAN: LONNIE ALMENDAREZ MD PCP: TONY TREVINO MD REPORT IS CONFIDENTIAL AND NOT TO BE RELEASED WITHOUT AUTHORIZATION [facility] [address] [place] [id number] Signed ovary had endometrial implants present and the left ovary was densely adherent to the left pelvic sidewall with deep infiltrating endometriosis on the left pelvic sidewall behind the ovary and between the ovary and uterus. The right tube was normal in length and normal-appearing fimbriated end. The right ovary is normal size and shape without any evidence of endometriosis or adhesions. The appendix appeared normal. Liver and gallbladder appeared normal. There were no other adhesions noted. DESCRIPTION OF PROCEDURE: The patient was brought to the operating room and placed in supine position. After adequate general anesthesia was obtained, she was placed in a dorsal lithotomy position, prepped and draped in usual sterile fashion. A Weaver catheter was placed in the bladder and then a weighted speculum placed in the vagina. The anterior lip of the cervix was grasped with an Allis clamp and then the cervix serially dilated. The [employer] uterine manipulator was carefully inserted through the cervix into the fundus of the uterus and the balloon filled with sterile water. The weighted speculum and Allis clamp were removed and the cervical cap slid along the manipulator and placed up around the cervix. The vaginal cup was then slid up against the cervical cap and tightened in place to hold this in position. Attention was then drawn to the abdomen. A small infraumbilical skin incision was made with a scalpel after injecting the area with 0.25% Marcaine with epinephrine. The subcutaneous tissue was dissected with Metzenbaum scissors and the fascia identified, grasped, hemostats elevated, nicked with Metzenbaum scissors and extended in transverse fashion using Metzenbaum scissors. The retention stitches of 0 Vicryl suture were placed above and below the incision. Finger was used to open the peritoneum and then an S retractor was inserted into the incision to verify entry into the abdomen and make sure no adhesions were noted. The Naomy cannula and sleeve then entered the abdomen under direct visualization following the S retractor. The S retractor was then removed and the balloon filled and the outer sleeve slid down against the skin. Two retention stitches were then attached to the outer sleeve. The trocar was removed and the laparoscope with video attachment entered the abdomen under direct visualization. On the left side just below the level of the umbilicus and approximately 10 cm lateral to the midline, the area was transilluminated to avoid any vessels and then 0.25% Marcaine with epinephrine injected and a small skin incision made with a scalpel. A bladed 5-mm trocar and sleeve entered the abdomen under direct visualization. Trocar was removed and the balloon filled. Blunt grasper was inserted. On the right side again just below the level of the umbilicus and approximately 10 cm lateral to midline, the abdominal wall was transilluminated to avoid vessels. The area injected with 0.25% Marcaine with epinephrine and slightly larger skin incision made with a scalpel. A Veress needle with expandable sleeve was then placed in the abdomen under direct visualization. The Veress needle was removed and expandable trocar and sleeve entered the abdomen through the expandible sleeve and the trocar removed and 2nd blunt grasper inserted. The above findings were noted. The Electronically Signed By: LONNIE ALMENDAREZ MD 07/15/19 2153 PATIENT NAME: ANNE MARIE BAZAN OPERATIVE REPORT DATE OF : 78 REPORT #: [id number] PHYSICIAN: LONNIE ALMENDAREZ MD PCP: TONY TREIVNO MD REPORT IS CONFIDENTIAL AND NOT TO BE RELEASED WITHOUT AUTHORIZATION [address] [address] Signed LigaSure bipolar [place] forceps were used for dissection on the left side. After examination, the ureter was identified and noted to be very close to the endometriosis and the adhesions of the ovary, so the peritoneum on the pelvic sidewall was opened just above the infundibulopelvic ligament and extended above the ovary. The infundibulopelvic ligament could then be identified, isolated, and this was then cauterized in several places and cut with the LigaSure forceps. An Endoloop of 0 Vicryl was then placed over the pedicle and tightened in place and the tail cut with laparoscopic scissors. The peritoneum was opened down so that the round ligament, the uteroovarian ligament, and the fallopian tube could be cauterized and cut with the LigaSure and with this side of the ovary , the ovary could be gently peeled medially and the retroperitoneal tissue carefully dissected away and the ureter identified so that the ureter would be avoided during the dissection. The ovary was taken down and away until just the lower peritoneum remained and this was cauterized and cut with the LigaSure. This did remove the deep endometriosis. The left tube and ovary were placed in the posterior cul-de-sac. With this opened, the anterior and posterior leaves of the broad ligament were cauterized and cut with [place] forceps down near the uterus and along to the midline posteriorly. Anteriorly, there was quite a bit of scarring and so the dissection was taken up to the scarring and stopped there. Uterine vessels were then easily seen. These were cauterized in several places and cut inside the cervical cap, which could be palpated. On the right side, the infundibulopelvic ligament was then cauterized in several places and cut. The peritoneum behind the tube and ovary cauterized and cut down to the uteroovarian ligament, which was cauterized in several places and cut as well as the fallopian tube and the round ligament in same fashion. With this tube and ovary removed, it was placed in the cul-de-sac with the other ovary. The round ligament was cauterized and cut. Broad ligament, peritoneum, anterior and posterior leaves of the broad ligament individually cauterized and cut posteriorly connecting with previous dissection, anteriorly taken until reaching again the scar tissue. Because of the scar tissue and apparent elevation of the bladder, it was decided to fill the bladder with sterile milk to identify the extent of the bladder and this did come very close and adjacent to the scar tissue. An attempt was made to dissect between the bladder and uterus from both sides using the LigaSure and then it was switched to the Sonicision to cut distal to the scar tissue down until the scar tissue was released and could be elevated up above the cervical cap. During this time, the bladder remained full with no openings in the bladder. Once the cervical cap could be identified anteriorly, the LigaSure was used to cauterize and cut the cervical tissue inside the cervical cap. The Sonicision was then used to open the posterior cul-de-sac and then starting posterior to anterior on the left side and posterior to anterior on the right side. The Sonicision was used to cut the vaginal wall in the groove of the cervical cap and this freed the uterus. The [employer] uterine manipulator was pulled from the vagina. The cervix in the vagina was easily visualized and then grasped with an Allis clamp and the cervix and uterus pulled Electronically Signed By: LONNIE ALMENDAREZ MD 07/15/19 2153 PATIENT NAME: ANNE MARIE BAZAN OPERATIVE REPORT DATE OF : [birth year] REPORT #: [id number] PHYSICIAN: LONNIE ALMENDAREZ MD PCP: TONY TREVINO MD REPORT IS CONFIDENTIAL AND NOT TO BE RELEASED WITHOUT AUTHORIZATION [address] [address] Signed out of the vagina. A glove covered lap pad was placed in the vagina and the abdomen re-insufflated, so that the both tubes and ovaries could be identified. They were grasped with blunt graspers, inserted in the vagina and then the gas again allowed to escape. The glove was removed and the tubes and ovaries easily removed from the vagina. A glove covered lap was then placed back into the vagina. Attention was then drawn back to the abdomen. The abdomen re-insufflated and the entire pelvis was irrigated, suctioned, examined, and noted to have good hemostasis. At this point, the Endo Stitch with barbed suture was brought in and the cuff closed sewing individually the posterior, then the anterior edges of the vaginal wall, starting at the right uterosacral ligament. After placing the 1st stitch in the posterior vaginal wall, the barbed suture was placed through the loop at the end of the barbed suture and then the anterior vaginal wall and then the stitch placed through the anterior vaginal wall and again from the right uterosacral to the left uterosacral ligaments, the vaginal opening was closed. The barbed suture stitch was taken back towards the midline in the combined cuff to lock the stitch in place and then laparoscopic scissors used to cut the barbed suture at the edge of the vaginal wall. With the vaginal incision closed, the entire pelvis was irrigated, suctioned, examined, and noted to have good hemostasis. The area was observed and no other endometrial implants were seen, but the left side had very wide peritoneal dissection because of the endometriosis and the adherent ovary, so the entire dissection area was sprayed with Tisseel through laparoscopic applicator. At this time, good hemostasis was noted, so all instruments were removed. The gas allowed to escape and the 3 sleeves were removed. The infraumbilical fascial incision was closed using running stitch of 0 Vicryl suture with the two retention stitches tied together for further support. The 3 skin incisions were closed using subcuticular stitches of 4-0 Vicryl suture. The glove and lap were removed from the vagina. Weaver catheter removed and cystoscope carefully placed through the urethra into the bladder using water as the distending medium. This was then also used to fill the bladder, the dome, and both sides of the bladder were carefully examined, noted to have no puckering, no stitches and no rents in the bladder anywhere. Both ureteral orifices were identified and both had good jets of urine. The bladder was drained. Cystoscope removed and the Weaver catheter placed back in the vagina. The patient tolerated the procedure well, went to recovery room in good condition. The sponge, needle, and instrument count correct at the end of the procedure. Uterus, both tubes and ovaries sent to Pathology for identification. Lonnie Almendarez MD Electronically Signed By: LONNIE ALMENDAREZ MD 07/15/19 2153 PATIENT NAME: ANNE MARIE BAZAN OPERATIVE REPORT DATE OF : 78 REPORT #: [id number] PHYSICIAN: LONNIE ALMENDAREZ MD PCP: TONY TREVINO MD REPORT IS CONFIDENTIAL AND NOT TO BE RELEASED WITHOUT AUTHORIZATION [facility] [address] [place] [address] Signed FLACA/PONCE /[id number] cc: Tony Trevino MD Copies: TONY TREVINO MD ~ Electronically Signed By: LONNIE ALMENDAREZ MD 07/15/19 2153 PATIENT NAME: BENIANNE MARIE BUCK OPERATIVE REPORT DATE OF : [birth year] REPORT #: [id number] PHYSICIAN: LONNIE ALMENDAREZ MD PCP: TONY TREVINO MD REPORT IS CONFIDENTIAL AND NOT TO BE RELEASED WITHOUT AUTHORIZATION
--- NOTE | 2019-07-16 12:27 | PATH ---
[facility] [address], [place] [address] Signed SPECIMEN(S): A BILATERAL OVARIES, UTERUS, AND CERVIX SPECIMEN SOURCE: A. BILATERAL OVARIES, UTERUS, AND CERVIX CLINICAL HISTORY: Vagina bleeding, pelvic pain, endometriosis of ovary, endometriosis of pelvic peritoneum. FINAL PATHOLOGIC DIAGNOSIS: Uterus, cervix, and bilateral fallopian tubes and ovaries, hysterectomy and bilateral salpingo-oophorectomy: - Cervix: No histopathologic abnormality. - Endometrium: Weakly proliferative endometrium. - Myometrium: Leiomyomata (5 mm in greatest dimension). - Serosa: No histopathologic abnormality. - Ovaries: Cystic follicles (9 mm in greatest dimension), hemorrhagic corpus luteum cyst (11 mm in greatest dimension), endometriosis, and endosalpingiosis. - Fallopian tubes: No histopathologic abnormality. NAL:smn:[id number] MICROSCOPIC EXAMINATION: Histologic sections of all submitted blocks are examined by light microscopy. These findings, together with the gross examination, support the pathologic diagnosis. GROSS DESCRIPTION: The specimen, labeled "MH," and designated on the requisition "bilateral ovaries and uterus, cervix,"" is received in formalin and consists of an 87 g, 8 x 6 x 4 cm uterus with cervix with detached, unoriented bilateral adnexa. The serosa is pink and smooth with multiple bosselated areas on the posterior aspect that measure up to 0.4 cm in maximum dimension. The ectocervix measures 2.5 cm and is covered by denney smooth epithelium. The 0.8 cm circular os has a pink smooth lining. The endocervix is denney and smooth. The uterine cavity is symmetrical. The endometrium measures 0.2 cm throughout and is denney-red and smooth. The myometrium measures up to 1.8 cm and is pink to ednney and homogeneous throughout except for a 0.5 cm rubbery denney well-circumscribed nodule. The first fallopian tube segment measures 4.8 x 0.6 cm and has a fimbriated end. The lumen is pinpoint and patent. The attached ovary measures 2.6 x 2.2 x 2 cm and PATIENT NAME: ANNE MARIE BAZAN PATHOLOGY DATE OF : 78 REPORT #: [id number] PHYSICIAN: LEO MARTINEZ PCP: TONY LERMA MD REPORT IS CONFIDENTIAL AND NOT TO BE RELEASED WITHOUT AUTHORIZATION [facility] [address], [place] [address] Signed has a denney smooth intact surface the cut surfaces demonstrate multiple smooth-walled cysts that measure up to 1 cm and contain clear watery fluid to soft, red-brown material. The second fallopian tube segment measures 4.5 x 0.6 cm and has a fimbriated end. The lumen is pinpoint and patent. The attached ovary measures 3.3 x 2.1 x 1.7 cm and has a denney to red cerebriform intact surface. The cut surfaces demonstrate a 1.2 cm corpus luteum along with multiple smooth-walled cysts that measure up to 0.8 cm and contain clear watery fluid. Sections are submitted as follows: (A1) Bosselated areas of posterior serosa (A2) Cervix, anterior marked blue (A3) Anterior endomyometrium (A4) Posterior endomyometrium including myometrial nodule (A5) Fimbria, cross sections of first fallopian tube and attached ovary (A6) Fimbria, cross sections of second fallopian tube and attached ovary. SS (under the direct supervision of a pathologist) Additional sections of the hemorrhagic cyst of the first ovary are submitted in cassettes A7 and A8. (07/15/19) The Gross Description was prepared using a voice recognition system. The report was reviewed for accuracy; however, sound-alike word errors, addition and/or deletions may occur. If there is any question about this report, please contact Client Services. PERFORMING LABORATORY: The technical component was performed by [facility] [address] (Sales Record Clerk: Farhana Peralta MD; CLIA# [id number]). Professional interpretation was performed by [facility], [address] [address] (Sales Record Clerk: Amilcar Blankenship MD; CLIA# [id number]). Diagnostician: Nicol Ferrer MD Pathologist Electronically Signed 07/16/2019 Copies: PATIENT NAME: ANNE MARIE BAZAN PATHOLOGY DATE OF : [birth year] REPORT #: [id number] PHYSICIAN: [facility]O PATHOLOGY PCP: TONY LERMA MD REPORT IS CONFIDENTIAL AND NOT TO BE RELEASED WITHOUT AUTHORIZATION [facility] [address], [place] [address] Signed ~ PATIENT NAME: BENIANNE MARIE BUCK PATHOLOGY DATE OF : 78 REPORT #: [id number] PHYSICIAN: [facility]O PATHOLOGY PCP: TONY LERAM MD REPORT IS CONFIDENTIAL AND NOT TO BE RELEASED WITHOUT AUTHORIZATION
== END 2019-07-11 14:55 | disposition home or self-care (01) ==
LOC: OPS 06:55 → DS 06:55 → OPS 08:30
PROVIDERS: General Practice
PROC: 0UT94ZZ Resection of Uterus, Percutaneous Endoscopic Approach (ICD-10-PCS; principal; 2019-07-11 08:30)
PROC: 0UT24ZZ Resection of Bilateral Ovaries, Percutaneous Endoscopic Approach (ICD-10-PCS; 2019-07-11 08:30)
PROC: 0UT74ZZ Resection of Bilateral Fallopian Tubes, Percutaneous Endoscopic Approach (ICD-10-PCS; 2019-07-11 08:30)
DX: D25.9 Leiomyoma of uterus, unspecified (principal); N83.02 Follicular cyst of left ovary; N83.01 Follicular cyst of right ovary; N83.12 Corpus luteum cyst of left ovary; N83.11 Corpus luteum cyst of right ovary; K66.0 Peritoneal adhesions (postprocedural) (postinfection); N80.3 Endometriosis of pelvic peritoneum; M79.7 Fibromyalgia; F32.9 Major depressive disorder, single episode, unspecified; Z87.891 Personal history of nicotine dependence; Z79.899 Other long term (current) drug therapy
CPT/HCPCS: 00840; J0690; J1100; J1170; J1644; J1885; J2250; J2270; J2405; J2704; J3010; J7121

== ENCOUNTER 2019-10-14 19:40 | Emergency (ER) | payer BC, OTHER ==
[~2019-10-14] VITALS: Ht 167.6 cm; Wt 88.5 kg
--- OUTSIDE RECORDS SUMMARY | ~2019-10-14 | XMS | Encounter Summary ---
Demographics + + + | Address | [address] | | | [place] [address] | + + + | Home Phone | | + + + | Preferred Language | Unknown | + + + | Marital Status | | + + + | Jehovah'S Witness Affiliation | 1013 | + + + | Race | Unknown | + + + | Ethnic Group | Unknown | + + + Author + + + | Author | [facility] | | | and [place] | + + + | Organization | [facility] | | | and [place] | + + + | Address | Unknown | + + + | Phone | Unavailable | + + + Support + + +---------+ + | Name | Relationship | Address | Phone | + + +---------+ + | Elton Bach | ECON | Unknown | | + + +---------+ + Care Team Providers + +------+ + | Care Quartz Mounter Name | Role | Phone | + +------+ + PCP | Unavailable | + +------+ + Encounter Details +--------+ + + + + | Date | Type | Department | Care Team | Description | +--------+ + + + + | 07/12/ | Hospital | [facility] | Robbi Cazares, | Nephrolithiasis; | | 2017 | Encounter | [facility] | DO [address] | Ureteral stent | | | | [address] | [place] [address] | retained; Acute | | | | [place], [place] | [phone] | cystitis with | | | | [address] | | hematuria | | | | [phone] | | | +--------+ + + + + Social History + +-------+ +--------+------+ | Tobacco Use | Types | Packs/Day | Years | Date | | | | | Used | | + +-------+ +--------+------+ | Never Assessed | | | | | + +-------+ +--------+------+ + + + | Sex Assigned at | Date Recorded | | | | + + + | Not on file | | + + + + + + + | Job Start Date | Occupation | Industry | + + + + | Not on file | Not on file | Not on file | + + + + + + + + | Travel History | Travel Start | Travel End | + + + + + + | No recent travel history available. | + + documented as of this encounter Last Filed Vital Signs + + + + + | Vital Sign | Reading | Time Taken | Comments | + + + + + | Blood Pressure | 109/54 | 07/12/2016 11:07 AM | | | | | PST | | + + + + + | Pulse | 73 | 07/12/2016 11:07 AM | | | | | PST | | + + + + + | Temperature | 36.8 C (98.3 F) | 07/12/2016 11:07 AM | | | | | PST | | + + + + + | Respiratory Rate | 16 | 07/12/2016 11:07 AM | | | | | PST | | + + + + + | Oxygen Saturation | - | - | | + + + + + | Inhaled Oxygen | - | - | | | Concentration | | | | + + + + + | Weight | 83.9 kg (184 lb 15.5 | 07/12/2016 11:07 AM | | | | oz) | PST | | + + + + + | Height | 167.6 cm (5' 6") | 07/12/2016 11:07 AM | | | | | PST | | + + + + + | Body Mass Index | 29.85 | 07/12/2016 11:07 AM | | | | | PST | | + + + + + documented in this encounter Progress Notes Conversion Transaction, Provider Unknown - 07/12/2016 12:59 PM PSTFormatting of this note m ight be different from the original. Nurse Progress Note by Patricia Herrera RN at 07/12/16 2265 Author: Patricia Herrera RN Service: (none) Author Type: Registered Nurse Filed: 07/12/16 1934 Date of Service: 07/12/161258 Status: Signed Alterations Manager: Patricia Herrera RN (Registered Nurse) Pt and family state understanding of DC instructions. Education completed regarding s/s of post op infection. Given prescription for medication with description of side effects. VS st able. No further questions or concerns. DC per order. onver dario Transaction, Provider Unknown - 07/12/2016 11:16 AM PST Nurse Progress Note by Amy Hurley RN at 07/12/16 1116 Author: Amy Hurley RN Service: (none) Author Type: Registered Nurse Filed: 07/12/16 1116 Date of Service: 07/12/16 1116 Status: Signed Alterations Manager: Amy Hurley RN (Registered Nurse) Awaiting return of care clinician in order to discuss discharge instructions and discharge pa tient home. onver dario Transaction, Provider Unknown - 07/12/2016 10:10 AM PST Progress Notes by Grace Rodriguez RN at 07/12/16 1010 Author: Grace Rodriguez RN Service: (none) Author Type: Registered Nurse Filed: 07/12/16 1011 Date of Service: 07/12/16 1010 Status: Signed Alterations Manager: Grace Rodriguez RN (Registered Nurse) Pt's ride is at appt. Pt stable for d/c. Will do papers and d/c when ride arrives, daphnei chalo, pt resting now docume nted in this encounter Plan of Treatment Not on filedocumented as of this encounter Visit Diagnoses + + | Diagnosis | + + | Nephrolithiasis Calculus of kidney | + + | Ureteral stent retained Other complications due to genitourinary device, implant, and | | graft | + + | Acute cystitis with hematuria Acute cystitis | + + documented in this encounter
--- OUTSIDE RECORDS SUMMARY | ~2019-10-14 | XMS | Encounter Summary ---
Demographics + + + | Address | [address] | | | [place] [address] | + + + | Home Phone | | + + + | Preferred Language | Unknown | + + + | Marital Status | | + + + | Nondenominational Affiliation | 1013 | + + + | Race | Unknown | + + + | Ethnic Group | Unknown | + + + Author + + + | Author | [facility] | | | and [place] | + + + | Organization | [facility] | | | [...] Team Providers + +------+ + | Care Graduation Coach Name | Role | Phone | + +------+ + PCP | Unavailable | + +------+ + Encounter Details +--------+ + + + + | Date | Type | Department | Care Team | Description | +--------+ + + + + | 07/03/ | Emergency | [facility] | Juve Sawyer DO | Acute cystitis with | | 2017 - | | [facility] [place] | [address] | hematuria | | | | [facility] | [place], [place] | | | 07/04/ | | [address] | [address] | | | 2016 | | [place] | [phone] | | | | | [address] | | | | | | [phone] | | | +--------+ + + + [...] + + documented as of this encounter Plan of Treatment Not on filedocumented as of this encounter Procedures + +--------+ + + + | Procedure Name | Priori | Date/Time | Associated Diagnosis | Comments | | | ty | | | | + +--------+ + + + | XR ABDOMEN AP | Routin | 07/04/2016 | | Results for this | | | e | 12:33 AM | | procedure are in the | | | | PST | | results section. | + +--------+ + + + | EXTERNAL LAB: CBC | Routin | 07/04/2016 | | Results for this | | | e | 12:14 AM | | procedure are in the | | | | PST | | results section. | + +--------+ + + + | URINALYSIS, REFLEX | Routin | 07/04/2016 | | Results for this | | MICROSCOPIC AND/OR | e | 12:14 AM | | procedure are in the | | CULTURE | | PST | | results section. | + +--------+ + + + | URINALYSIS, | Routin | 07/04/2016 | | Results for this | | MICROSCOPIC ONLY | e | 12:14 AM | | procedure are in the | | | | PST | | results section. | + +--------+ + + + | HCG, URINE, QUAL | Routin | 07/04/2016 | | Results for this | | | e | 12:14 AM | | procedure are in the | | | | PST | | results section. | + +--------+ + + + | CULTURE, URINE | STAT | 07/04/2016 | | Results for this | | | | 12:14 AM | | procedure are in the | | | | PST | | results section. | + +--------+ + + + | C-REACTIVE PROTEIN | Routin | 07/04/2016 | | Results for this | | | e | 12:14 AM | | procedure are in the | | | | PST | | results section. | + +--------+ + + + | COMPREHENSIVE | Routin | 07/04/2016 | | Results for this | | METABOLIC PANEL | e | 12:14 AM | | procedure are in the | | | | PST | | results section. | + +--------+ + + + documented in this encounter Results XR Abdomen AP (07/04/2016 12:33 AM PST) + + | Specimen | + + | | + + + + + | Impressions | Performed At | + + + | 1. Left double-J ureteral stent in appropriate position, with 7 mm | | | stone in the left renal pelvis. 2. No stones along the ureteral | | | stent. 3. Normal gas pattern. | | + + + + + + | Narrative | Performed At | + + + | HISTORY: Left lower quadrant abdominal pain. Ureteral stent. | | | COMPARISON: None. TECHNIQUE: A single supine film of the abdomen | | | was obtained. FINDINGS: Left double-J ureteral stent in | | | appropriate position, with stone overlying the upper loop of the stent | | | measuring 7 mm. No stones are seen along the ureteral stent. Gas | | | pattern unremarkable with moderate stool. No free air. Subtle | | | degenerative changes of the inferior SI joints. Minimal lower lumbar | | | degenerative facet changes. | | + + + + + | Procedure Note | + + | Aki, Rad Conversion - 01/31/2019 4:53 AM PDT HISTORY:Left lower quadrant abdominal | | pain. Ureteral stent. COMPARISON:None. TECHNIQUE:A single supine film of the abdomen was | | obtained. FINDINGS:Left double-J ureteral stent in appropriate position, with stone | | overlying the upper loop of the stent measuring 7 mm. No stones are seen along the | | ureteral stent. Gas pattern unremarkable with moderate stool. No free air. Subtle | | degenerative changes of the inferior SI joints. Minimal lower lumbar degenerative facet | | changes. IMPRESSION: 1. Left double-J ureteral stent in appropriate position, with 7 mm | | stone in the left renal pelvis.2. No stones along the ureteral stent.3. Normal gas | | pattern. | |FINDINGS: | |Left double-J ureteral stent in appropriate position, with stone overlying the upper loop o f the stent measuring 7 mm. No stones are seen along the ureteral stent. Gas pattern unremar kable with moderate stool. No free air. | |Subtle degenerative changes of | |the inferior SI joints. Minimal lower lumbar degenerative facet changes. | | | |IMPRESSION: | |1. Left double-J ureteral stent in appropriate position, with 7 mm stone in the left renal pelvis. | |2. No stones along the ureteral stent. | |3. Normal gas pattern. | | | | | + + Culture, Urine (07/04/2016 12:14 AM PST) + + | Specimen | + + | | + + + + + | Narrative | Performed At | + + + | Specimen Description URINE, COLLECTION NOT | EXTERNAL LAB | | GIVEN CULTURE NO GROWTH | | + + + + +---------+ + + | Performing | Address | City/State/Zipcode | Phone Number | | Organization | | | | + +---------+ + + | EXTERNAL LAB | | | | + +---------+ + + Urinalysis, Reflex Microscopic and/or Culture (07/04/2016 12:14 AM PST) + + + + + + | Component | Value | Ref Range | Performed | Pathologist | | | | | At | Signature | + + + + + + | Color | YELLOWComment: Testing | | EXTERNAL | | | | performed at [facility], [address] | | LAB | | | | [address], | | | | | | [place] [address] | | | | + + + + + + | Clarity | CLOUDYComment: Testing | | EXTERNAL | | | | performed at [facility], [address] | | LAB | | | | [address], | | | | | | [place] [address] | | | | + + + + + + | Specific | 1.025Comment: Testing | 1.001 - 1.035 | EXTERNAL | | | [place], | performed at [facility], [address] | | LAB | | | Urine | [address], | | | | | | [place] [address] | | | | + + + + + + | Leukocyte | TRACE (A)Comment: | | EXTERNAL | | | Esterase, | Testing performed at | | LAB | | | Urine | [facility], [address], | | | | | | [place] [address] | | | | + + + + + + | Nitrite, | NEGATIVEComment: Testing | | EXTERNAL | | | Urine | performed at [facility], [address] | | LAB | | | | [address], | | | | | | [place] [address] | | | | + + + + + + | Urobilinoge | 0.2Comment: Testing | mg/dL | EXTERNAL | | | n, Urine | performed at [facility], [address] | | LAB | | | | [address], | | | | | | [place] [address] | | | | + + + + + + | Protein, | 100 (A)Comment: Testing | mg/dL | EXTERNAL | | | Urine | performed at [facility], [address] | | LAB | | | | [address], | | | | | | [place] [address] | | | | + + + + + + | pH, Urine | 6.5Comment: Testing | 4.6 - 8.0 | EXTERNAL | | | | performed at [facility], [address] | | LAB | | | | [address], | | | | | | [place] [address] | | | | + + + + + + | Blood, | LARGE (A)Comment: | | EXTERNAL | | | Urine | Testing performed at | | LAB | | | | [facility], [address], | | | | | | [place] [address] | | | | + + + + + + | Ketones | TRACE (A)Comment: | mg/dL | EXTERNAL | | | | Testing performed at | | LAB | | | | [facility], [address], | | | | | | [place] [address] | | | | + + + + + + | Bilirubin, | NEGATIVEComment: Testing | | EXTERNAL | | | Urine | performed at [facility], [address] | | LAB | | | | [address], | | | | | | [place] [address] | | | | + + + + + + | Glucose, | NEGATIVEComment: Testing | mg/dL | EXTERNAL | | | Urine | performed at [facility], [address] | | LAB | | | | [address], | | | | | | [place] [address] | | | | + + + + + + + + | Specimen | + + | Urine specimen | | (specimen) | + + + +---------+ + + | Performing | Address | City/State/Zipcode | Phone Number | | Organization | | | | + +---------+ + + | EXTERNAL LAB | | | | + +---------+ + + , Urine, Qual (07/04/2016 12:14 AM PST) + + + + + + | Component | Value | Ref Range | Performed | Pathologist | | | | | At | Signature | + + + + + + | Preg Test, | NEGATIVEComment: Testing | | EXTERNAL | | | Ur | performed at [facility], [address] | | LAB | | | | [address], | | | | | | [place] [address] | | | | + + + + + + + + | Specimen | + + | Urine specimen | | (specimen) | + + + +---------+ + + | Performing | Address | City/State/Zipcode | Phone Number | | Organization | | | | + +---------+ + + | EXTERNAL LAB | | | | + +---------+ + + Urinalysis, Microscopic Only (07/04/2016 12:14 AM PST) + + + + + + | Component | Value | Ref Range | Performed | Pathologist | | | | | At | Signature | + + + + + + | WBC, UA | 16-25Comment: Testing | 0 - 5 /hpf | EXTERNAL | | | | performed at [facility], [address] | | LAB | | | | [address], | | | | | | [place] [address] | | | | + + + + + + | RBC, UA | >100Comment: Testing | 0 - 5 /hpf | EXTERNAL | | | | performed at [facility], [address] | | LAB | | | | [address], | | | | | | [place] [address] | | | | + + + + + + | Epithelial | 26-50Comment: Testing | /lpf | EXTERNAL | | | Cells | performed at [facility], [address] | | LAB | | | | [address], | | | | | | [place] [address] | | | | + + + + + + | Bacteria, | 3+ (A)Comment: Testing | | EXTERNAL | | | UA | performed at [facility], [address] | | LAB | | | | [address], | | | | | | [place] [address] | | | | + + + + + + | Mucus, | 3+Comment: Testing | | EXTERNAL | | | Urine | performed at [facility], [address] | | LAB | | | | [address], | | | | | | [place] [address] | | | | + + + + + + | Urinalysis | CULTURE TO | | EXTERNAL | | | Comments | FOLLOWComment: Testing | | LAB | | | | performed at [facility], [address] | | | | | | [address], | | | | | | [place] [address] | | | | + + + + + + + + | Specimen | + + | | + + + +---------+ + + | Performing | Address | City/State/Zipcode | Phone Number | | Organization | | | | + +---------+ + + | EXTERNAL LAB | | | | + +---------+ + + External Lab: CBC (07/04/2016 12:14 AM PST) + + + + + + | Component | Value | Ref Range | Performed | Pathologist | | | | | At | Signature | + + + + + + | WBC | 11.86 (H)Comment: | 3.80 - 11.00 | EXTERNAL | | | | Testing performed at | K/uL | LAB | | | | [facility], [address], | | | | | | [place] [address] | | | | + + + + + + | Red Blood | 4.24Comment: Testing | 3.70 - 5.10 | EXTERNAL | | | Cells | performed at [facility], [address] | M/uL | LAB | | | Counted | [address], | | | | | | [place] [address] | | | | + + + + + + | Hemoglobin | 13.3Comment: Testing | 11.3 - 15.5 | EXTERNAL | | | | performed at [facility], [address] | g/dL | LAB | | | | [address], | | | | | | [place] [address] | | | | + + + + + + | Hematocrit, | 39.6Comment: Testing | 34.0 - 46.0 % | EXTERNAL | | | POC | performed at [facility], [address] | | LAB | | | | [address], | | | | | | [place] [address] | | | | + + + + + + | MCV | 93.3Comment: Testing | 80.0 - 100.0 fl | EXTERNAL | | | | performed at [facility], [address] | | LAB | | | | [address], | | | | | | [place] [address] | | | | + + + + + + | MCH | 31.4Comment: Testing | 27.0 - 34.0 pg | EXTERNAL | | | | performed at [facility], [address] | | LAB | | | | [address], | | | | | | [place] [address] | | | | + + + + + + | MCHC | 33.7Comment: Testing | 32.0 - 35.5 | EXTERNAL | | | | performed at [facility], [address] | g/dL | LAB | | | | [address], | | | | | | [place] [address] | | | | + + + + + + | RDW-CV | 41.1Comment: Testing | 37 - 53 fl | EXTERNAL | | | | performed at [facility], [address] | | LAB | | | | [address], | | | | | | [place] [address] | | | | + + + + + + | Platelet | 429 (H)Comment: Testing | 150 - 400 K/uL | EXTERNAL | | | Count | performed at [facility], [address] | | LAB | | | Plasma | [address], | | | | | | [place] [address] | | | | + + + + + + | MPV | 7.8Comment: Testing | fl | EXTERNAL | | | | performed at [facility], [address] | | LAB | | | | [address], | | | | | | [place] [address] | | | | + + + + + + | Differentia | AUTOMATEDComment: | | EXTERNAL | | | l Type | Testing performed at | | LAB | | | | [facility], [address], | | | | | | [place] [address] | | | | + + + + + + | % Segmented | 64.58Comment: Testing | % | EXTERNAL | | | | performed at [facility], [address] | | LAB | | | Neutrophils | [address], | | | | | | [place] [address] | | | | + + + + + + | % | 22.96Comment: Testing | % | EXTERNAL | | | Lymphocytes | performed at [facility], [address] | | LAB | | | | [address], | | | | | | [place] [address] | | | | + + + + + + | % Monocytes | 8.89Comment: Testing | % | EXTERNAL | | | | performed at [facility], [address] | | LAB | | | | [address], | | | | | | [place] [address] | | | | + + + + + + | % | 2.53Comment: Testing | % | EXTERNAL | | | Eosinophils | performed at [facility], [address] | | LAB | | | | [address], | | | | | | [place] [address] | | | | + + + + + + | % Basophils | 1.04Comment: Testing | % | EXTERNAL | | | | performed at [facility], [address] | | LAB | | | | [address], | | | | | | [place] [address] | | | | + + + + + + | Absolute | 7.66 (H)Comment: Testing | 1.90 - 7.40 | EXTERNAL | | | Segmented | performed at [facility], [address] | K/uL | LAB | | | Neutrophils | [address], | | | | | | [place] [address] | | | | + + + + + + | Absolute | 2.72Comment: Testing | 1.00 - 3.90 | EXTERNAL | | | Lymphocytes | performed at [facility], [address] | K/uL | LAB | | | | [address], | | | | | | [place] [address] | | | | + + + + + + | Absolute | 1.05 (H)Comment: Testing | 0.00 - 0.80 | EXTERNAL | | | Monocytes | performed at [facility], [address] | K/uL | LAB | | | | [address], | | | | | | [place] [address] | | | | + + + + + + | Absolute | 0.30Comment: Testing | 0.00 - 0.50 | EXTERNAL | | | Eosinophils | performed at [facility], [address] | K/uL | LAB | | | | [address], | | | | | | [place] [address] | | | | + + + + + + | Absolute | 0.12 (H)Comment: Testing | 0.00 - 0.10 | EXTERNAL | | | Basophils | performed at [facility], [address] | K/uL | LAB | | | | [address], | | | | | | [place] [address] | | | | + + + + + + + + | Specimen | + + | Blood specimen | | (specimen) | + + + +---------+ + + | Performing | Address | City/State/Zipcode | Phone Number | | Organization | | | | + +---------+ + + | EXTERNAL LAB | | | | + +---------+ + + C-Reactive Protein (07/04/2016 12:14 AM PST) + + + + + + | Component | Value | Ref Range | Performed | Pathologist | | | | | At | Signature | + + + + + + | CRP | 0.2Comment: Testing | mg/dL | EXTERNAL | | | | performed at [facility], [address] | | LAB | | | | [address], | | | | | | [place] [address] | | | | + + + + + + + + | Specimen | + + | Blood specimen | | (specimen) | + + + +---------+ + + | Performing | Address | City/State/Zipcode | Phone Number | | Organization | | | | + +---------+ + + | EXTERNAL LAB | | | | + +---------+ + + Comprehensive Metabolic Panel (07/04/2016 12:14 AM PST) + + + + + + | Component | Value | Ref Range | Performed | Pathologist | | | | | At | Signature | + + + + + + | Na | 139Comment: Testing | 135 - 145 | EXTERNAL | | | | performed at [facility], [address] | mmol/L | LAB | | | | [address], | | | | | | [place] [address] | | | | + + + + + + | K | 4.0Comment: Testing | 3.5 - 4.9 | EXTERNAL | | | | performed at [facility], [address] | mmol/L | LAB | | | | [address], | | | | | | [place] [address] | | | | + + + + + + | Cl | 103Comment: Testing | 99 - 109 mmol/L | EXTERNAL | | | | performed at [facility], [address] | | LAB | | | | [address], | | | | | | [place] [address] | | | | + + + + + + | CO2 | 28Comment: Testing | 23 - 32 mmol/L | EXTERNAL | | | | performed at [facility], [address] | | LAB | | | | [address], | | | | | | [place] [address] | | | | + + + + + + | Anion Gap | 12Comment: Testing | 5 - 20 mmol/L | EXTERNAL | | | | performed at [facility], [address] | | LAB | | | | [address], | | | | | | [place] [address] | | | | + + + + + + | Glucose, | 84Comment: Testing | 65 - 99 mg/dL | EXTERNAL | | | Fasting | performed at [facility], [address] | | LAB | | | | [address], | | | | | | [place] [address] | | | | + + + + + + | BUN | 22Comment: Testing | 8 - 25 mg/dL | EXTERNAL | | | | performed at [facility], [address] | | LAB | | | | [address], | | | | | | [place] [address] | | | | + + + + + + | Creatinine | 0.98Comment: Testing | 0.50 - 1.00 | EXTERNAL | | | | performed at [facility], [address] | mg/dL | LAB | | | | [address], | | | | | | [place] [address] | | | | + + + + + + | BUN/Creatin | 22Comment: Testing | | EXTERNAL | | | ine Ratio | performed at [facility], [address] | | LAB | | | | [address], | | | | | | [place] [address] | | | | + + + + + + | Calcium | 8.8Comment: Testing | 8.5 - 10.5 | EXTERNAL | | | | performed at [facility], [address] | mg/dL | LAB | | | | [address], | | | | | | [place] [address] | | | | + + + + + + | Protein, | 7.8Comment: Testing | 6.3 - 8.2 g/dL | EXTERNAL | | | Total | performed at [facility], [address] | | LAB | | | | [address], | | | | | | [place] [address] | | | | + + + + + + | Albumin | 4.3Comment: Testing | 3.6 - 5.0 g/dL | EXTERNAL | | | | performed at [facility], [address] | | LAB | | | | [address], | | | | | | [place] [address] | | | | + + + + + + | Globulin | 3.5Comment: Testing | 1.3 - 4.9 g/dL | EXTERNAL | | | | performed at [facility], [address] | | LAB | | | | [address], | | | | | | [place] [address] | | | | + + + + + + | A/G Ratio | 1.2Comment: Testing | 1.0 - 2.4 | EXTERNAL | | | | performed at [facility], [address] | | LAB | | | | [address], | | | | | | [place] [address] | | | | + + + + + + | Bilirubin | 0.5Comment: Testing | 0.1 - 1.5 mg/dL | EXTERNAL | | | Total | performed at [facility], [address] | | LAB | | | | [address], | | | | | | [place] [address] | | | | + + + + + + | ALP, | 67Comment: Testing | 35 - 115 U/L | EXTERNAL | | | External | performed at [facility], [address] | | LAB | | | | [address], | | | | | | [place] [address] | | | | + + + + + + | AST | 14Comment: Testing | 10 - 45 U/L | EXTERNAL | | | | performed at [facility], [address] | | LAB | | | | [address], | | | | | | [place] [address] | | | | + + + + + + | ALT | 18Comment: Testing | 10 - 65 U/L | EXTERNAL | | | | performed at [facility], [address] | | LAB | | | | [address], | | | | | | [place] [address] | | | | + + + + + + | Estimated | >60Comment: GFR <60: | mL/min/1.73m2 | EXTERNAL | | | GFR | CHRONIC KIDNEY DISEASE, | | LAB | | | | IF FOUND OVER A 3 MONTH | | | | | | PERIOD.GFR <15: KIDNEY | | | | | | FAILURE.FOR | | | | | | AMERICANS, MULTIPLY THE | | | | | | CALCULATED GFR BY | | | | | | 1.210.Testing performed | | | | | | at [facility], [address] | | | | | | [place] | | | | | | [address] | | | | + + + + + + + + | Specimen | + + | Blood specimen | | (specimen) | + + + +---------+ + + | Performing | Address | City/State/Zipcode | Phone Number | | Organization | | | | + +---------+ + + | EXTERNAL LAB | | | | + +---------+ + + documented in this encounter Visit Diagnoses + + | Diagnosis | + + | Acute cystitis with hematuria Acute cystitis | + + documented in this encounter"
--- OUTSIDE RECORDS SUMMARY | ~2019-10-14 | XMS | Clinical Summary ---
Demographics + + + | Address | [address] | | | [place] [address] | + + + | Home Phone | | + + + | Preferred Language | Unknown | + + + | Marital Status | | + + + | Confucianism Affiliation | 1013 | + + + | Race | Unknown | + + + | Ethnic Group | Unknown | + + + Author + + + | Author | [facility] (Historical as of | | | 02-02-19) | + + + | Organization | [facility] (Historical as of | | | 02-02-19) | + + + | Address | Unknown | + + + | Phone | Unavailable | + + + Support + + + + + | Name | Relationship | Address | Phone | + + + + + | Elton Bach | ECON | [address] | | | | | [place] | | | | | [address] | | + + + + + Care Team Providers + +------+ + | Care Air Tool Operator Name | Role | Phone | + +------+ + | Duran Trevino MD | PP | | + +------+ + Allergies No Known Allergies Current Medications + + +--------+---------+------+------+-------+ | Prescription | Sig. | Disp. | Refills | Star | End | Statu | | | | | | t | Date | s | | | | | | Date | | | + + +--------+---------+------+------+-------+ | | Take 2 tablets by | | | | | Activ | | oxyCODONE-acetaminop | mouth every 4 (four) | | | | | e | | hen (PERCOCET) 5-325 | hours as needed for | | | | | | | MG per tablet | Pain. | | | | | | + + +--------+---------+------+------+-------+ | tamsulosin | Take 0.4 mg by mouth | | | | | Activ | | (FLOMAX) 0.4 MG | After dinner. | | | | | e | | capsule | | | | | | | + + +--------+---------+------+------+-------+ | tolterodine | Take 4 mg by mouth | | | | | Activ | | (DETROL LA) 4 MG 24 | daily. | | | | | e | | hr capsule | | | | | | | + + +--------+---------+------+------+-------+ | gabapentin | Take 400 mg by mouth | | | | | Activ | | (NEURONTIN) 400 MG | 3 (three) times | | | | | e | | capsule | daily. | | | | | | + + +--------+---------+------+------+-------+ | ciprofloxacin | Take 1 tablet by | 20 | 0 | 06/19 | | Activ | | (CIPRO) 500 MG | mouth 2 (two) times | tablet | | 12/06 | | e | | tablet | daily. | | | 17 | | | + + +--------+---------+------+------+-------+ | Misc Natural | Take by mouth. | | | | | Activ | | Products (COLON | | | | | | e | | CLEANSE PO) | | | | | | | + + +--------+---------+------+------+-------+ Active Problems + + + | Problem | Noted Date | + + + | Nephrolithiasis | 07/05/2016 | + + + | Ureteral stent retained | 07/05/2016 | + + + | Urinary tract infection | 07/05/2016 | + + + Social History + +-------+ +--------+------+ | Tobacco Use | Types | Packs/Day | Years | Date | | | | | Used | | + +-------+ +--------+------+ | Current Every Day | | 1 | 15 | | | Smoker | | | | | + +-------+ +--------+------+ + + | Comments: down to quarter of a pack a day | + + + + +---------+ + | Alcohol Use | Drinks/We | oz/Week | Comments | | | ek | | | + + +---------+ + | Yes | | | One every 4 months | + + +---------+ + + + + | Sex Assigned at | Date Recorded | | | | + + + | Not on file | | + + + Last Filed Vital Signs + + + + | Vital Sign | Reading | Time Taken | + + + + | Blood Pressure | 109/54 | 07/12/2016 11:00 AM PST | + + + + | Pulse | 73 | 07/12/2016 11:00 AM PST | + + + + | Temperature | 36.8 C (98.3 F) | 07/12/2016 11:00 AM PST | + + + + | Respiratory Rate | 16 | 07/12/2016 11:00 AM PST | + + + + | Oxygen Saturation | 100% | 07/12/2016 11:00 AM PST | + + + + | Inhaled Oxygen | - | - | | Concentration | | | + + + + | Weight | 83.5 kg (184 lb) | 07/20/2016 10:20 AM PST | + + + + | Height | 167.6 cm (5' 6") | 07/20/2016 10:20 AM PST | + + + + | Body Mass Index | 29.7 | 07/20/2016 10:20 AM PST | + + + + Plan [...] Vaccine: Influenza | | | | | (Season Ended) | 0 | | | + + + + + Results Not on filefrom Last 3 Months Insurance + +--------+ +------+-------+ + | Payer | Benefi | Subscriber | Type | Phone | Address | | | t Plan | ID | | | | | | / | | | | | | | Group | | | | | + +--------+ +------+-------+ + | MEDICAID | MEDICA | [id number] | | | [address] | | | ID | | | | [place] | | | [place] | | | | [address] | + +--------+ +------+-------+ + + +--------+ +--------+ + + | Guarantor Name | Accoun | Relation to | Date | Phone | Billing Address | | | t Type | Patient | of | | | | | | | | | | + +--------+ +--------+ + + | MARCIE BACH | Person | Self | [birth year] | Home: | [address] [place] [address] | | | carmelo/Malachi | | 1979 | [phone] | [place] | | | [place] | | | [phone] | [phone] | + +--------+ +--------+ + +
--- OUTSIDE RECORDS SUMMARY | ~2019-10-14 | XMS | Encounter Summary ---
Demographics + + + | Address | [address] | | | [place] [address] | + + + | Home Phone | | + + + | Preferred Language | Unknown | + + + | Marital Status | | + + + | Latter-Day Affiliation | 1013 | + + + | Race | Unknown | + + + | Ethnic Group | Unknown | + + + Author + + + | Author | [facility] | | | and [place] | + + + | Organization | [facility] | | | and [...] Team Providers + +------+ + | Care Laboratory Geneticist Name | Role | Phone | + +------+ + PCP | Unavailable | + +------+ + Encounter Details +--------+ + + + + | Date | Type | Department | Care Team | Description | +--------+ + + + + | 07/20/ | Hospital | [facility] | Conversion | Nephrolithiasis | | 2017 | Encounter | [facility] | Transaction, | | | | | [address] | Provider Unknown | | | | | [address] [place], [place] | [phone] | | | | | [address] | | | | | | [phone] | Robbi Cazares DO | | | | | | [address] | | | | | | [place] [address] | | | | | | [phone] | | | | | | | [...]
--- OUTSIDE RECORDS SUMMARY | ~2019-10-14 | XMS | Encounter Summary ---
Demographics + + + | Address | [address] | | | [place] [address] | + + + | Home Phone | | + + + | Preferred Language | Unknown | + + + | Marital Status | | + + + | Religion Affiliation | 1013 | + + + | Race | Unknown | + + + | Ethnic Group | Unknown | + + + Author + + + | Author | [facility] | | | and [place] | + + + | Organization | [facility] | | | and [...] Team Providers + +------+ + | Care Roll Dough Divider Name | Role | Phone | + +------+ + PCP | Unavailable | + +------+ + Encounter Details +--------+ + + + + | Date | Type | Department | Care Team | Description | +--------+ + + + + | 07/20/ | Hospital | [facility] | Conversion | Nephrolithiasis | | 2017 | Encounter | [facility] | Transaction, | | | | | [address] | Provider Unknown | | | | | [address] [place], [place] | [phone] | | | | | [address] | | | | | | [phone] | Robbi Cazares DO | | | | | | [address] | | | | | | [place] [address] | | | | | | [phone] | | | | | | | [...]
--- OUTSIDE RECORDS SUMMARY | ~2019-10-14 | XMS | Clinical Summary ---
Demographics + + + | Address | [address] | | | [place] [address] | + + + | Home Phone | | + + + | Preferred Language | Unknown | + + + | Marital Status | | + + + | Restoration Affiliation | 1013 | + + + | Race | Unknown | + + + | Ethnic Group | Unknown | + + + Author + + + | Author | [facility] (Historical as of | | | 02-02-19) | + + + | Organization | [facility] (Historical as of | | | 02-02-19) | + + + | Address | Unknown | + + + | Phone | Unavailable | + + + Support + + + + + | Name | Relationship | Address | Phone | + + + + + | Elton Bach | ECON | [address] | | | | | [place] | | | | | [address] | | + + + + + Care Team Providers + +------+ + | Care Health Care Consultant Name | Role | Phone | + [...] +------+-------+ + | MEDICAID | MEDICA | [id number] | | | [address] | | | ID | | | | [place] | | | [place] | | | | [address] | + +--------+ +------+-------+ + + +--------+ +--------+ + + | Guarantor Name | Accoun | Relation to | Date | Phone | Billing Address | | | t Type | Patient | of | | | | | | | | | | + +--------+ +--------+ + + | MARCIE BACH | Person | Self | [birth year] | Home: | [address] [place] [address] | | | caremlo/Malachi | | 1979 | [phone] | [place] | | | [place] | | | [phone] | [phone] | + +--------+ +--------+ + +
--- OUTSIDE RECORDS SUMMARY | ~2019-10-14 | XMS | Clinical Summary ---
Demographics + + + | Address | [address] | | | [place] [address] | + + + | Home Phone | | + + + | Preferred Language | Unknown | + + + | Marital Status | | + + + | Sabianist Affiliation | 1013 | + + + | Race | Unknown | + + + | Ethnic Group | Unknown | + + + Author + + + | Author | [facility] | | | and [place] | + + + | Organization | [facility] | | | and [...] Team Providers + +------+ + | Care Art Historian Name | Role | Phone | + [...] | | | Dtap/Tdap/Td (1 - | 0 | | | | Tdap) | | [...]
--- OUTSIDE RECORDS SUMMARY | ~2019-10-14 | XMS | Encounter Summary ---
Demographics + + + | Address | [address] | | | [place] [address] | + + + | Home Phone | | + + + | Preferred Language | Unknown | + + + | Marital Status | | + + + | Baptist Affiliation | 1013 | + + + | Race | Unknown | + + + | Ethnic Group | Unknown | + + + Author + + + | Author | [facility] | | | and [place] | + + + | Organization | [facility] | | | [...] Team Providers + +------+ + | Care Space Operations Name | Role | Phone | + +------+ + PCP | Unavailable | + +------+ + Encounter Details +--------+ + + + + | Date | Type | Department | Care Team | Description | +--------+ + + + + | 07/03/ | Emergency | [facility] | Juve Sawyer DO | Acute cystitis with | | 2017 - | | [facility] | [address] | hematuria | | | | [facility] | [place], [place] | | | 07/04/ | | [address] | [address] | | | 2016 | | [place] | [phone] | | | | | [address] | | | | | | [phone] | | | +--------+ + + + [...] EXTERNAL | | | | performed at [facility], [address] | | LAB | | | | [address], | | | | | | [place] [address] | | | | + + + + + + | Clarity | CLOUDYComment: Testing | | EXTERNAL | | | | performed at [facility], [address] | | LAB | | | | [address], | | | | | | [place] [address] | | | | + + + + + + | Specific | 1.025Comment: Testing | 1.001 - 1.035 | EXTERNAL | | | [place], | performed at [facility], [address] | | LAB | | | Urine | [address], | | | | | | [place] [address] | | | | + + + + + + | Leukocyte | TRACE (A)Comment: | | EXTERNAL | | | Esterase, | Testing performed at | | LAB | | | Urine | [facility], [address], | | | | | | [place] [address] | | | | + + + + + + | Nitrite, | NEGATIVEComment: Testing | | EXTERNAL | | | Urine | performed at [facility], [address] | | LAB | | | | [address] [place], | | | | | | [place] [address] | | | | + + + + + + | Urobilinoge | 0.2Comment: Testing | mg/dL | EXTERNAL | | | n, Urine | performed at [facility], [address] | | LAB | | | | [address] [place], | | | | | | [place] [address] | | | | + + + + + + | Protein, | 100 (A)Comment: Testing | mg/dL | EXTERNAL | | | Urine | performed at [facility], [address] | | LAB | | | | [address], | | | | | | [place] [address] | | | | + + + + + + | pH, Urine | 6.5Comment: Testing | 4.6 - 8.0 | EXTERNAL | | | | performed at [facility], [address] | | LAB | | | | [address] [place], | | | | | | [place] [address] | | | | + + + + + + | Blood, | LARGE (A)Comment: | | EXTERNAL | | | Urine | Testing performed at | | LAB | | | | [facility], [address], | | | | | | [place] [address] | | | | + + + + + + | Ketones | TRACE (A)Comment: | mg/dL | EXTERNAL | | | | Testing performed at | | LAB | | | | [facility], [address], | | | | | | [place] [address] | | | | + + + + + + | Bilirubin, | NEGATIVEComment: Testing | | EXTERNAL | | | Urine | performed at [facility], [address] | | LAB | | | | [address] [place], | | | | | | [place] [address] | | | | + + + + + + | Glucose, | NEGATIVEComment: Testing | mg/dL | EXTERNAL | | | Urine | performed at [facility], [address] | | LAB | | | | [address], | | | | | | [place] [address] | | | | + + + [...] | | | Ur | performed at [facility], [address] | | LAB | | | | [address], | | | | | | [place] [address] | | | | + + + [...] EXTERNAL | | | | performed at [facility], [address] | | LAB | | | | [address] [place], | | | | | | [place] [address] | | | | + + + + + + | RBC, UA | >100Comment: Testing | 0 - 5 /hpf | EXTERNAL | | | | performed at [facility], [address] | | LAB | | | | [address] [place], | | | | | | [place] [address] | | | | + + + + + + | Epithelial | 26-50Comment: Testing | /lpf | EXTERNAL | | | Cells | performed at [facility], [address] | | LAB | | | | [address], | | | | | | [place] [address] | | | | + + + + + + | Bacteria, | 3+ (A)Comment: Testing | | EXTERNAL | | | UA | performed at [facility], [address] | | LAB | | | | [address], | | | | | | [place] [address] | | | | + + + + + + | Mucus, | 3+Comment: Testing | | EXTERNAL | | | Urine | performed at [facility], [address] | | LAB | | | | [address], | | | | | | [place] [address] | | | | + + + + + + | Urinalysis | CULTURE TO | | EXTERNAL | | | Comments | FOLLOWComment: Testing | | LAB | | | | performed at [facility], [address] | | | | | | [address], | | | | | | [place] [address] | | | | + + + [...] K/uL | LAB | | | | [facility], [address], | | | | | | [place] [address] | | | | + + + + + + | Red Blood | 4.24Comment: Testing | 3.70 - 5.10 | EXTERNAL | | | Cells | performed at [facility], [address] | M/uL | LAB | | | Counted | [address], | | | | | | [place] [address] | | | | + + + + + + | Hemoglobin | 13.3Comment: Testing | 11.3 - 15.5 | EXTERNAL | | | | performed at [facility], [address] | g/dL | LAB | | | | [address], | | | | | | [place] [address] | | | | + + + + + + | Hematocrit, | 39.6Comment: Testing | 34.0 - 46.0 % | EXTERNAL | | | POC | performed at [facility], [address] | | LAB | | | | [address], | | | | | | [place] [address] | | | | + + + + + + | MCV | 93.3Comment: Testing | 80.0 - 100.0 fl | EXTERNAL | | | | performed at [facility], [address] | | LAB | | | | [address], | | | | | | [place] [address] | | | | + + + + + + | MCH | 31.4Comment: Testing | 27.0 - 34.0 pg | EXTERNAL | | | | performed at [facility], [address] | | LAB | | | | [address], | | | | | | [place] [address] | | | | + + + + + + | MCHC | 33.7Comment: Testing | 32.0 - 35.5 | EXTERNAL | | | | performed at [facility], [address] | g/dL | LAB | | | | [address], | | | | | | [place] [address] | | | | + + + + + + | RDW-CV | 41.1Comment: Testing | 37 - 53 fl | EXTERNAL | | | | performed at [facility], [address] | | LAB | | | | [address], | | | | | | [place] [address] | | | | + + + + + + | Platelet | 429 (H)Comment: Testing | 150 - 400 K/uL | EXTERNAL | | | Count | performed at [facility], [address] | | LAB | | | Plasma | [address], | | | | | | [place] [address] | | | | + + + + + + | MPV | 7.8Comment: Testing | fl | EXTERNAL | | | | performed at [facility], [address] | | LAB | | | | [address], | | | | | | [place] [address] | | | | + + + + + + | Differentia | AUTOMATEDComment: | | EXTERNAL | | | l Type | Testing performed at | | LAB | | | | [facility], [address], | | | | | | [place] [address] | | | | + + + + + + | % Segmented | 64.58Comment: Testing | % | EXTERNAL | | | | performed at [facility], [address] | | LAB | | | Neutrophils | [address], | | | | | | [place] [address] | | | | + + + + + + | % | 22.96Comment: Testing | % | EXTERNAL | | | Lymphocytes | performed at [facility], [address] | | LAB | | | | [address], | | | | | | [place] [address] | | | | + + + + + + | % Monocytes | 8.89Comment: Testing | % | EXTERNAL | | | | performed at [facility], [address] | | LAB | | | | [address], | | | | | | [place] [address] | | | | + + + + + + | % | 2.53Comment: Testing | % | EXTERNAL | | | Eosinophils | performed at [facility], [address] | | LAB | | | | [address], | | | | | | [place] [address] | | | | + + + + + + | % Basophils | 1.04Comment: Testing | % | EXTERNAL | | | | performed at [facility], [address] | | LAB | | | | [address], | | | | | | [place] [address] | | | | + + + + + + | Absolute | 7.66 (H)Comment: Testing | 1.90 - 7.40 | EXTERNAL | | | Segmented | performed at [facility], [address] | K/uL | LAB | | | Neutrophils | [address], | | | | | | [place] [address] | | | | + + + + + + | Absolute | 2.72Comment: Testing | 1.00 - 3.90 | EXTERNAL | | | Lymphocytes | performed at [facility], [address] | K/uL | LAB | | | | [address], | | | | | | [place] [address] | | | | + + + + + + | Absolute | 1.05 (H)Comment: Testing | 0.00 - 0.80 | EXTERNAL | | | Monocytes | performed at [facility], [address] | K/uL | LAB | | | | [address], | | | | | | [place] [address] | | | | + + + + + + | Absolute | 0.30Comment: Testing | 0.00 - 0.50 | EXTERNAL | | | Eosinophils | performed at [facility], [address] | K/uL | LAB | | | | [address], | | | | | | [place] [address] | | | | + + + + + + | Absolute | 0.12 (H)Comment: Testing | 0.00 - 0.10 | EXTERNAL | | | Basophils | performed at [facility], [address] | K/uL | LAB | | | | [address], | | | | | | [place] [address] | | | | + + + [...] EXTERNAL | | | | performed at [facility], [address] | | LAB | | | | [address], | | | | | | [place] [address] | | | | + + + [...] EXTERNAL | | | | performed at [facility], [address] | mmol/L | LAB | | | | [address], | | | | | | [place] [address] | | | | + + + + + + | K | 4.0Comment: Testing | 3.5 - 4.9 | EXTERNAL | | | | performed at [facility], [address] | mmol/L | LAB | | | | [address], | | | | | | [place] [address] | | | | + + + + + + | Cl | 103Comment: Testing | 99 - 109 mmol/L | EXTERNAL | | | | performed at [facility], [address] | | LAB | | | | [address], | | | | | | [place] [address] | | | | + + + + + + | CO2 | 28Comment: Testing | 23 - 32 mmol/L | EXTERNAL | | | | performed at [facility], [address] | | LAB | | | | [address], | | | | | | [place] [address] | | | | + + + + + + | Anion Gap | 12Comment: Testing | 5 - 20 mmol/L | EXTERNAL | | | | performed at [facility], [address] | | LAB | | | | [address], | | | | | | [place] [address] | | | | + + + + + + | Glucose, | 84Comment: Testing | 65 - 99 mg/dL | EXTERNAL | | | Fasting | performed at [facility], [address] | | LAB | | | | [address], | | | | | | [place] [address] | | | | + + + + + + | BUN | 22Comment: Testing | 8 - 25 mg/dL | EXTERNAL | | | | performed at [facility], [address] | | LAB | | | | [address], | | | | | | [place] [address] | | | | + + + + + + | Creatinine | 0.98Comment: Testing | 0.50 - 1.00 | EXTERNAL | | | | performed at [facility], [address] | mg/dL | LAB | | | | [address], | | | | | | [place] [address] | | | | + + + + + + | BUN/Creatin | 22Comment: Testing | | EXTERNAL | | | ine Ratio | performed at [facility], [address] | | LAB | | | | [address], | | | | | | [place] [address] | | | | + + + + + + | Calcium | 8.8Comment: Testing | 8.5 - 10.5 | EXTERNAL | | | | performed at [facility], [address] | mg/dL | LAB | | | | [address], | | | | | | [place] [address] | | | | + + + + + + | Protein, | 7.8Comment: Testing | 6.3 - 8.2 g/dL | EXTERNAL | | | Total | performed at [facility], [address] | | LAB | | | | [address], | | | | | | [place] [address] | | | | + + + + + + | Albumin | 4.3Comment: Testing | 3.6 - 5.0 g/dL | EXTERNAL | | | | performed at [facility], [address] | | LAB | | | | [address], | | | | | | [place] [address] | | | | + + + + + + | Globulin | 3.5Comment: Testing | 1.3 - 4.9 g/dL | EXTERNAL | | | | performed at [facility], [address] | | LAB | | | | [address], | | | | | | [place] [address] | | | | + + + + + + | A/G Ratio | 1.2Comment: Testing | 1.0 - 2.4 | EXTERNAL | | | | performed at [facility], [address] | | LAB | | | | [address], | | | | | | [place] [address] | | | | + + + + + + | Bilirubin | 0.5Comment: Testing | 0.1 - 1.5 mg/dL | EXTERNAL | | | Total | performed at [facility], [address] | | LAB | | | | [address], | | | | | | [place] [address] | | | | + + + + + + | ALP, | 67Comment: Testing | 35 - 115 U/L | EXTERNAL | | | External | performed at [facility], [address] | | LAB | | | | [address], | | | | | | [place] [address] | | | | + + + + + + | AST | 14Comment: Testing | 10 - 45 U/L | EXTERNAL | | | | performed at [facility], [address] | | LAB | | | | [address], | | | | | | [place] [address] | | | | + + + + + + | ALT | 18Comment: Testing | 10 - 65 U/L | EXTERNAL | | | | performed at [facility], [address] | | LAB | | | | [address], | | | | | | [place] [address] | | | | + + + [...] | | | | | | at [facility], [address] | | | | | | [place] | | | | | | [address] | | | | + + + [...]
--- OUTSIDE RECORDS SUMMARY | ~2019-10-14 | XMS | Encounter Summary ---
Demographics + + + | Address | [address] | | | [place] [address] | + + + | Home Phone | | + + + | Preferred Language | Unknown | + + + | Marital Status | | + + + | Jew Affiliation | 1013 | + + + | Race | Unknown | + + + | Ethnic Group | Unknown | + + + Author + + + | Author | [facility] | | | and [place] | + + + | Organization | [facility] | | | and [...] Team Providers + +------+ + | Care News Producer Name | Role | Phone | + +------+ + PCP | Unavailable | + +------+ + Encounter Details +--------+ + + + + | Date | Type | Department | Care Team | Description | +--------+ + + + + | 07/20/ | Hospital | [facility] | Robbi Cazares, | | | 2017 | Encounter | [facility] | DO [address] | | | | | CLINICAL LABORATORY | [place] [address] | | | | | [address] | [phone] | | | | | [place], [place] | | | | | | [address] | | | | | | [phone] | | | +--------+ + + + [...] LAB | | Testing performed at [facility], [address] [place] [address] | | | [place] [address] COMPONENT 1 SEE | | | BELOW CALCIUM OXALATE DIHYDRATE (WEDDELLITE) 15% CALCIUM OXALATE | | | MONOHYDRATE (WHEWELLITE) 70% CARBONATE APATITE (DAHLLITE) 15% | | | Testing performed at [facility], [address] [place] [address], [place] | | | [place] [address] COMPONENT 2 NOT | | | REPORTED Testing performed at [facility], [address] [place] [address] | | | [facility], [place] [address] STONE WEIGHT | | | [phone] Testing performed at [facility], [facility] | | | [facility], [place] [address] | | + + + + +---------+ + + | Performing | Address | City/State/Zipcode | Phone Number | | Organization | | | | + +---------+ + + | EXTERNAL LAB | | | | + +---------+ + + documented in this encounter Visit Diagnoses Not on filedocumented in this encounter"
--- OUTSIDE RECORDS SUMMARY | ~2019-10-14 | XMS | Encounter Summary ---
Demographics + + + | Address | [address] | | | [place] [address] | + + + | Home Phone | | + + + | Preferred Language | Unknown | + + + | Marital Status | | + + + | Christian Affiliation | 1013 | + + + | Race | Unknown | + + + | Ethnic Group | Unknown | + + + Author + + + | Author | [facility] | | | and [place] | + + + | Organization | [facility] | | | [...] Team Providers + +------+ + | Care Completion Supervisor Name | Role | Phone | + +------+ + PCP | Unavailable | + +------+ + Encounter Details +--------+ + + + + | Date | Type | Department | Care Team | Description | +--------+ + + + + | 11/30/ | Hospital | [facility] | Conversion | Pain | | 2016 | Encounter | CONVERSION DEP [address] | Transaction, | | | | | [address] | Provider Unknown | | | | | [place], [place] | | | | | | [phone] | (Fax) | | | | | [phone] | | | +--------+ + + + [...]
--- OUTSIDE RECORDS SUMMARY | ~2019-10-14 | XMS | Encounter Summary ---
Demographics + + + | Address | [address] | | | [place] [address] | + + + | Home Phone | | + + + | Preferred Language | Unknown | + + + | Marital Status | | + + + | Yarsanism Affiliation | 1013 | + + + | Race | Unknown | + + + | Ethnic Group | Unknown | + + + Author + + + | Author | [facility] | | | and [place] | + + + | Organization | 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
--- OUTSIDE RECORDS SUMMARY | ~2019-10-14 | XMS | Encounter Summary ---
Demographics + + + | Address | [address] | | | [place] [address] | + + + | Home Phone | | + + + | Preferred Language | Unknown | + + + | Marital Status | | + + + | Restoration Affiliation | 1013 | + + + | Race | Unknown | + + + | Ethnic Group | Unknown | + + + Author + + + | Author | [facility] | | | and [place] | + + + | Organization | [facility] | | | [...] Team Providers + +------+ + | Care Audio Visual Specialist Name | Role | Phone | + +------+ + PCP | Unavailable | + +------+ + Encounter Details +--------+ + + + + | Date | Type | Department | Care Team | Description | +--------+ + + + + | 07/12/ | Hospital | [facility] | Robbi Cazares, | Nephrolithiasis; | | 2017 | Encounter | [facility] | DO [address] | Ureteral stent | | | | [address] | [place] [address] | retained; Acute | | | | [place], [place] | [phone] | cystitis with | | | | [address] | | hematuria | | | | [phone] | | | +--------+ + + + [...] Note by Patricia Herrera RN at 07/12/16 9353 Author: Patricia Herrera RN Service: (none) Author Type: Registered Nurse Filed: 07/12/16 4514 Date of Service: 07/12/161258 Status: Signed Nutrition Educator: Patricia Herrera RN (Registered Nurse) Pt and [...] Date of Service: 07/12/16 1116 Status: Signed Nutrition Educator: Amy Hurley RN (Registered Nurse) Awaiting return of care clinician in order to discuss discharge instructions and discharge pa tient home. onver dario Transaction, Provider Unknown - 07/12/2016 10:10 AM PST Progress Notes by Grace Rodriguez RN at 07/12/16 1010 Author: Grace Rodriguez RN Service: (none) Author Type: Registered Nurse Filed: 07/12/16 1011 Date of Service: 07/12/16 1010 Status: Signed Nutrition Educator: Grace Rodriguez RN (Registered Nurse) Pt's ride [...]
--- OUTSIDE RECORDS SUMMARY | ~2019-10-14 | XMS | Clinical Summary ---
Demographics + + + | Address | [address] | | | [place] [address] | + + + | Home Phone | | + + + | Preferred Language | Unknown | + + + | Marital Status | | + + + | Synagogue Affiliation | 1013 | + + + | Race | Unknown | + + + | Ethnic Group | Unknown | + + + Author + + + | Author | [facility] | | | and [place] | + + + | Organization | [facility] | | | [...] Team Providers + +------+ + | Care Software Project Manager Name | Role | Phone | [...]
--- OUTSIDE RECORDS SUMMARY | ~2019-10-14 | XMS | Encounter Summary ---
Demographics + + + | Address | [address] | | | [place] [address] | + + + | Home Phone | | + + + | Preferred Language | Unknown | + + + | Marital Status | | + + + | Sabianism Affiliation | 1013 | + + + | Race | Unknown | + + + | Ethnic Group | Unknown | + + + Author + + + | Author | [facility] | | | and [place] | + + + | Organization | [facility] | | | [...] Team Providers + +------+ + | Care Networker Name | Role | Phone | + +------+ + PCP | Unavailable | + +------+ + Encounter Details +--------+ + + + + | Date | Type | Department | Care Team | Description | +--------+ + + + + | 07/20/ | Hospital | [facility] | Robbi Cazares, | | | 2017 | Encounter | [facility] | DO [address] | | | | | CLINICAL LABORATORY | [place] [address] | | | | | [address] | [phone] | | | | | [place], [place] | | | | | | [address] | | | | | | [phone] | | | +--------+ + + + [...] Testing performed at [facility], [address] [place] [address] | | | [place] [address] COMPONENT 1 SEE | | | BELOW CALCIUM OXALATE DIHYDRATE (WEDDELLITE) 15% CALCIUM OXALATE | | | MONOHYDRATE (WHEWELLITE) 70% CARBONATE APATITE (DAHLLITE) 15% | | | Testing performed at [facility], [address] [place] [address], [place] | | | [place] [address] COMPONENT 2 NOT | | | REPORTED Testing performed at [facility], [address] [place] [address] | | | [facility], [place] [address] STONE WEIGHT | | | 0.0630 Testing performed at [facility], [facility] | | | [facility], [place] [address] | | + + + + +---------+ + + | Performing | Address | City/State/Zipcode | Phone Number | | Organization | | | | + +---------+ + + | EXTERNAL LAB | | | | + +---------+ + + documented in this encounter Visit Diagnoses Not on filedocumented in this encounter"
--- OUTSIDE RECORDS SUMMARY | 2019-10-14 19:44 | XMS ---
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 Care History Medical/Surgical 06/24/2019 [facility] - PATIENT HAS A PRE OP APT WITH DR NAVARRO ON 07/09/2019. 03/25/2019 [facility] - PATIENT HAS A FOLLOW UP APT WITH DR ANDERSON- ON 04/01/19 [place] VISIT COUNT (12 MO.) [address] [facility] TOTAL 7 NOTE: Visits indicate total known visits. ED/UCC VISIT TRACKING (12 MO.) 10/14/2019 19:41 [facility] TYPE: Emergency COMPLAINT: - SOB 06/23/2019 09:05 [facility] TYPE: Emergency COMPLAINT: - ABD PAIN DIAGNOSES: - Migraine, unspecified, not intractable, without status migrai - Allergy status to other drugs, medicaments and biological sub - Unspecified ovarian cyst, left side - Unspecified abdominal pain - Personal history of urinary calculi - Other snf (current) drug therapy - Bee allergy status - Nicotine dependence, unspecified, uncomplicated 05/10/2019 16:39 [facility] TYPE: Emergency COMPLAINT: - CERVICAL MISCARRIAGE DIAGNOSES: - Incomplete spontaneous without complication - Nicotine dependence, unspecified, uncomplicated - Abnormal uterine and vaginal bleeding, unspecified 03/25/2019 15:05 [facility] TYPE: Emergency COMPLAINT: - POSSIBLE MISCARRIAGE DIAGNOSES: - Personal history of urinary calculi - Abnormal uterine and vaginal bleeding, unspecified - Allergy status to other drugs, medicaments and biological sub - Bee allergy status - Nicotine dependence, unspecified, uncomplicated - Complete or unspecified spontaneous without complica - Other snf (current) drug therapy 03/24/2019 11:50 [facility] TYPE: Emergency COMPLAINT: - PREG BLEEDING DIAGNOSES: - Bee allergy status - Migraine, unspecified, not intractable, without status migrai - Complete or unspecified spontaneous without complica - Complete or unspecified spontaneous without complica - Other snf (current) drug therapy - Nicotine dependence, unspecified, uncomplicated - Allergy status to other drugs, medicaments and biological sub 03/20/2019 05:14 [facility] TYPE: Emergency COMPLAINT: - VAGINAL BLEEDING DIAGNOSES: - Hemorrhage in early , unspecified - Personal history of urinary calculi - Nicotine dependence, unspecified, uncomplicated - 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 - Bee allergy status - Abnormal uterine and vaginal bleeding, unspecified - Less than 8 weeks gestation of - Allergy status to other drugs, medicaments and biological sub 01/07/2019 22:25 [facility] TYPE: Emergency COMPLAINT: - ABDOMINAL PAIN DIAGNOSES: - Nicotine dependence, unspecified, uncomplicated - Allergy status to other drugs, medicaments and biological sub - Right lower quadrant pain - Personal history of urinary calculi - Bee allergy status - Other snf (current) drug therapy INPATIENT VISIT TRACKING (12 [...] of the nervous system complicating , first - Migraine, unspecified, not intractable, without status migrai - 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
[2019-10-14] MEDS ORDERED: LEXAPRO20 MG PO (19:56)
--- NOTE | 2019-10-15 11:59 | EKG ---
[facility] [address] [facility] [place] [address] Signed Normal sinus rhythm Normal ECG No previous ECGs available Confirmed by KARTHIK NARVAEZ MD ([id number]) on 10/15/2019 11:59:18 AM Electronically Signed By: KARTHIK NARVAEZ MD 10/15/19 1159 PATIENT NAME: BENIANNE MARIE BUCK Electrocardiogram DATE OF : 78 PHYSICIAN: KARTHIK NARVAEZ MD REPORT #: [id number] REPORT IS CONFIDENTIAL AND NOT TO BE RELEASED WITHOUT AUTHORIZATION
== END 2019-10-14 22:25 | disposition home or self-care (01) ==
LOC: ED 19:40
DX: R42 Dizziness and giddiness (principal); G43.909 Migraine, unspecified, not intractable, without status migrainosus; F17.200 Nicotine dependence, unspecified, uncomplicated; Z91.038 Other insect allergy status; Z88.8 Allergy status to other drugs, medicaments and biological substances; Z79.899 Other long term (current) drug therapy
CPT/HCPCS: 71045; 80053; 83735; 84484; 85025; 93005; 93010; 96361; 96374; 96375; 99284-25; J1885; J2405; J3360; J7030

== ENCOUNTER 2020-01-26 13:17 | Emergency (ER) | payer BC, OTHER ==
[~2020-01-26] VITALS: Ht 167.6 cm; Wt 88.5 kg
[~2020-01-26 13:17] MED LIST changes: +LEXAPRO20 MG PO
--- OUTSIDE RECORDS SUMMARY | 2020-01-26 13:20 | XMS ---
PreManage Notification: ANNE MARIE BAZAN Security Optical Coating Technician Events No recent Security Events currently on file CRITERIA MET - [facility] 03/25/2019-Current PHONE: Unknown MARIA GUADALUPE [facility] 03/25/2019-Current PHONE: [phone] Mahin has no Care Guidelines for this patient. Care History Medical/Surgical 06/24/2019 [facility] - PATIENT HAS A PRE OP APT WITH DR NAVARRO ON 07/09/2019. 03/25/2019 [facility] - PATIENT HAS A FOLLOW UP APT WITH DR ANDERSON- ON 04/01/19 [place] VISIT COUNT (12 MO.) [address] [facility] [place] TOTAL 7 NOTE: Visits indicate total known visits. 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 - Dizziness and giddiness - Nicotine dependence, unspecified, uncomplicated 06/23/2019 09:05 [facility] [place] TYPE: Emergency COMPLAINT: - ABD PAIN DIAGNOSES: - Migraine, unspecified, not intractable, without status migrai - Allergy status to other drugs, medicaments and biological sub - Unspecified ovarian cyst, left side - Unspecified abdominal pain - Personal history of urinary calculi - Other fleet administrator (current) drug therapy - Bee allergy status [...] or unspecified spontaneous without complica - Other senior living (current) drug therapy 03/24/2019 11:50 [facility] [place] TYPE: Emergency COMPLAINT: - PREG BLEEDING DIAGNOSES: - Bee allergy status - Migraine, unspecified, not intractable, without status migrai - Complete or unspecified spontaneous without complica - Complete or unspecified spontaneous without complica - Other senior living (current) drug therapy - Nicotine dependence, unspecified, uncomplicated - Allergy status to other drugs, medicaments and biological sub 03/20/2019 05:14 [facility] [place] TYPE: Emergency COMPLAINT: - VAGINAL BLEEDING DIAGNOSES: - Hemorrhage in early , unspecified - Personal history of urinary calculi - Nicotine dependence, unspecified, uncomplicated - Other senior living (current) drug therapy - Bee allergy status - Abnormal uterine and vaginal bleeding, unspecified - Less than 8 weeks gestation of - Allergy status to other drugs, medicaments and biological sub INPATIENT VISIT TRACKING (12 MO.) 05/10/2019 16:39 [...] not intractable, without status migrai - Other senior living (current) drug therapy - Nicotine dependence, cigarettes, [...] , firs - Pelvic and perineal pain [email or web address]
[2020-01-26] MEDS ORDERED: TRAMADOL HCL50 MG PO (13:28)
[2020-01-26] MEDS ORDERED: ESTRADIOL1 MG PO (13:29)
[2020-01-26] MEDS ORDERED: RIZATRIPTAN10 MG PO (13:29)
[2020-01-26] MEDS ORDERED: ONDANSETRON ODT8 MG PO (16:28)
[2020-01-26] MEDS ORDERED: NORCO 7.5-3251 EACH PO (16:29)
== END 2020-01-26 16:51 | disposition home or self-care (01) ==
LOC: ED 13:17
DX: K80.80 Other cholelithiasis without obstruction (principal); G43.909 Migraine, unspecified, not intractable, without status migrainosus; F17.200 Nicotine dependence, unspecified, uncomplicated; Z79.899 Other long term (current) drug therapy
CPT/HCPCS: 74177; 80053; 81001; 83690; 85025; 96361; 96374; 96375; 99284-25; J1170; J1885; J2405; J7030; Q9967

== ENCOUNTER 2020-06-12 11:25 | Emergency (ER) | payer BC, OTHER ==
[~2020-06-12] VITALS: Ht 167.6 cm; Wt 89.4 kg
[~2020-06-12 11:25] MED LIST changes: +ESTRADIOL1 MG PO; +NORCO 7.5-3251 EACH PO; +ONDANSETRON ODT8 MG PO; +PERCOCET 10-321 EACH PO
--- OUTSIDE RECORDS SUMMARY | 2020-06-12 11:28 | XMS ---
PreManage Notification: ANNE MARIE BAZAN Security Rotary Peel Oven Tender Events No recent Security Events currently on file CRITERIA MET - [facility] - [facility] Care Guidelines [facility] 03/25/2019-Current PHONE: Unknown MARIA GUADALUPE [facility] Current PHONE: [phone] Mahin has no Care Guidelines for this patient. Care History Medical/Surgical 06/24/2019 [facility] - PATIENT HAS A PRE OP APT WITH DR NAVARRO ON 07/09/2019. 03/25/2019 [facility] - PATIENT HAS A FOLLOW UP APT WITH DR ANDERSON- ON 04/01/19 [place] VISIT COUNT (12 MO.) 4 [facility] TOTAL 4 NOTE: Visits indicate total known visits. ED/UCC VISIT TRACKING (12 MO.) 06/12/2020 11:25 [facility] 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 - Migraine, unspecified, not intractable, without status migrainosus - Pain in thoracic spine - Nicotine dependence, unspecified, uncomplicated - Other cholelithiasis without obstruction 10/14/2019 19:41 [facility] [place] [facility] [place] TYPE: Emergency COMPLAINT: - SOB DIAGNOSES: - Allergy status to other drugs, medicaments and biological substances - Migraine, unspecified, not intractable, without status migrainosus - Other insect allergy status - Other lobsterman (current) 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 therapy - Dizziness and giddiness - Nicotine dependence, unspecified, uncomplicated 06/23/2019 09:05 [facility] [place] TYPE: Emergency COMPLAINT: - ABD PAIN DIAGNOSES: - Migraine, unspecified, not intractable, without status migrainosus - Allergy status to other drugs, medicaments and biological substances - Unspecified ovarian cyst, left side - Unspecified abdominal pain - Personal history of urinary calculi - Other lobsterman (current) drug therapy - Bee allergy status - Nicotine dependence, unspecified, uncomplicated INPATIENT VISIT TRACKING (12 MO.) No inpatient visits to display in this time frame [id number]
[2020-06-12] MEDS ORDERED: ULTRAM50 MG PO (11:45)
[2020-06-12] MEDS ORDERED: LEXAPRO20 MG PO (11:46)
== END 2020-06-12 14:21 | disposition home or self-care (01) ==
LOC: ED 11:25
DX: G43.909 Migraine, unspecified, not intractable, without status migrainosus (principal); M79.10 Myalgia, unspecified site; F17.200 Nicotine dependence, unspecified, uncomplicated; Z88.8 Allergy status to other drugs, medicaments and biological substances; Z91.030 Bee allergy status; Z79.899 Other long term (current) drug therapy; Z79.891 Long term (current) use of opiate analgesic
CPT/HCPCS: 80053; 81001; 84703; 85025; 96374; 96375; 99284-25; J1200; J1790; J1885; J2405; J7030

== ENCOUNTER 2021-05-16 15:56 | Emergency (ER) | payer BC, OTHER ==
[~2021-05-16] VITALS: Ht 167.6 cm; Wt 89.4 kg
[~2021-05-16 15:56] MED LIST changes: +ULTRAM50 MG PO
[2021-05-16] MEDS ORDERED: HYDROCODON-ACE1 EA11 PO (18:28)
== END 2021-05-16 19:00 | disposition home or self-care (01) ==
LOC: ED 15:56
DX: M25.562 Pain in left knee (principal); G43.909 Migraine, unspecified, not intractable, without status migrainosus; F17.200 Nicotine dependence, unspecified, uncomplicated; Z88.8 Allergy status to other drugs, medicaments and biological substances; Z91.030 Bee allergy status; Z79.899 Other long term (current) drug therapy; Z79.891 Long term (current) use of opiate analgesic
CPT/HCPCS: 99283; A9270

== ENCOUNTER 2021-07-18 13:04 | Emergency (ER) | payer BC, OTHER ==
[~2021-07-18] VITALS: Ht 167.6 cm; Wt 93.0 kg
[~2021-07-18 13:04] MED LIST changes: +HYDROCODON-ACE1 EA11 PO
--- OUTSIDE RECORDS SUMMARY | 2021-07-18 13:06 | XMS ---
PreManage Notification: ANNE MARIE BAZAN Security Bone Tender Events No recent Security Events currently on file CRITERIA MET - [facility] CARE PROVIDERS ARIANA MARADIAGA Physician Manager Lan Current PHONE: Unknown RAMON [facility] 03/25/2019-Current PHONE: Unknown MARIA GUADALUPE [facility] Current PHONE: Unknown Mahin has no Care Guidelines for this patient. Care History Medical/Surgical 06/24/2019 [facility] - PATIENT HAS A PRE OP APT WITH DR NAVARRO ON 07/09/2019. 03/25/2019 [facility] - PATIENT HAS A FOLLOW UP APT WITH DR NAVARRO-RAFAEL ON 04/01/19 [place] VISIT COUNT (12 MO.) 2 [facility] TOTAL 2 NOTE: Visits indicate total known visits. ED/UCC VISIT TRACKING (12 MO.) 07/18/2021 13:04 [facility] [place] TYPE: Emergency COMPLAINT: - ABDOMONAL PAIN 05/16/2021 15:[address] [facility] [place] TYPE: Emergency COMPLAINT: - LT KNEE PAIN DIAGNOSES: - residential (current) use of opiate analgesic - Migraine, unspecified, not intractable, without status migrainosus - Bee allergy status - Allergy status to other drugs, medicaments and biological substances - Other fdc (current) drug therapy - Pain in left knee - Nicotine dependence, unspecified, uncomplicated INPATIENT VISIT TRACKING (12 MO.) No inpatient visits to display in this time frame [email or web address]
[2021-07-18] MEDS ORDERED: DICLOFENAC SODI75 MG PO (13:44)
[2021-07-18] MEDS ORDERED: DULOXETINE HCL30 MG PO (13:44)
[2021-07-18] MEDS ORDERED: HYDROXYZINE HCL50 MG PO (13:45)
[2021-07-18] MEDS ORDERED: DICYCLOMINE HCL10 MG PO (14:43)
[2021-07-18] MEDS ORDERED: ONDANSETRON ODT4 MG SL (14:43)
[2021-07-18] MEDS ORDERED: HYDROCODON-ACE1 EAC8 PO (14:43)
[2021-07-18] MEDS ORDERED: PROTONIX40 MG PO (14:46)
== END 2021-07-18 15:10 | disposition home or self-care (01) ==
LOC: ED 13:04
DX: K52.9 Noninfective gastroenteritis and colitis, unspecified (principal); K92.1 Melena; G43.909 Migraine, unspecified, not intractable, without status migrainosus; F17.200 Nicotine dependence, unspecified, uncomplicated; Z91.030 Bee allergy status; Z88.8 Allergy status to other drugs, medicaments and biological substances; Z79.899 Other long term (current) drug therapy
CPT/HCPCS: 80053; 83690; 84703; 85025; 87045; 96374; 96376; 99284-25; J1170; J7030

== ENCOUNTER 2021-09-19 01:58 | Emergency (ER) | payer BC, OTHER ==
[~2021-09-19] VITALS: Ht 167.6 cm; Wt 93.0 kg
[~2021-09-19 01:58] MED LIST changes: +DICLOFENAC SODI75 MG PO; +DICYCLOMINE HCL10 MG PO; +DULOXETINE HCL30 MG PO; +HYDROCODON-ACE1 EAC8 PO; +HYDROXYZINE HCL50 MG PO; +ONDANSETRON ODT4 MG SL; +PROTONIX40 MG PO
--- OUTSIDE RECORDS SUMMARY | 2021-09-19 02:00 | XMS ---
PreManage Notification: ANNE MARIE BAZAN Security Crown Pouncer Events No recent Security Events currently on file CRITERIA MET - [facility] CARE PROVIDERS ARIANA MARADIAGA Physician Oracle Consultant Current PHONE: Unknown RAMON [facility] 03/25/2019-Current PHONE: Unknown MARIA GUADALUPE [facility] Current PHONE: Unknown Mahin has no Care Guidelines for this patient. Care History Medical/Surgical 06/24/2019 [facility] - PATIENT HAS A PRE OP APT WITH DR NAVARRO ON 07/09/2019. 03/25/2019 [facility] - PATIENT HAS A FOLLOW UP APT WITH DR NAVARRO-RAFAEL ON 04/01/19 [place] VISIT COUNT (12 MO.) 3 [facility] TOTAL 3 NOTE: Visits indicate total known visits. ED/UCC VISIT TRACKING (12 MO.) 09/19/2021 01:58 [facility] [place] TYPE: Emergency COMPLAINT: - HEADACHE 07/18/2021 13:04 [facility] [place] TYPE: Emergency COMPLAINT: - ABDOMONAL PAIN DIAGNOSES: - Migraine, unspecified, not intractable, without status migrainosus - Melena - Nicotine dependence, unspecified, uncomplicated - Other mcc (current) drug therapy - Noninfective gastroenteritis and colitis, unspecified - Bee allergy status - Unspecified abdominal pain - Allergy status to other drugs, medicaments and biological substances 05/16/2021 15:56 [facility] [place] TYPE: Emergency COMPLAINT: - LT KNEE PAIN DIAGNOSES: - snf (current) use of opiate analgesic - Migraine, unspecified, not intractable, without status migrainosus - Bee allergy status - Allergy status to other drugs, medicaments and biological substances - 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
[2021-09-19] MEDS ORDERED: BUTALB-ACETAMI1 EAC2 PO (04:28)
== END 2021-09-19 04:57 | disposition home or self-care (01) ==
LOC: ED 01:58
DX: G43.909 Migraine, unspecified, not intractable, without status migrainosus (principal); F17.200 Nicotine dependence, unspecified, uncomplicated; Z88.8 Allergy status to other drugs, medicaments and biological substances; Z91.030 Bee allergy status; Z79.899 Other long term (current) drug therapy
CPT/HCPCS: 72040; 96374; 96375; 99283-25; J1200; J1885; J2270; J2550; J3030; J7030

== ENCOUNTER 2022-02-06 10:02 | Emergency (ER) | payer BC, OTHER ==
[~2022-02-06] VITALS: Ht 167.6 cm; Wt 90.7 kg
[~2022-02-06 10:02] MED LIST changes: +BUTALB-ACETAMI1 EAC2 PO
--- OUTSIDE RECORDS SUMMARY | 2022-02-06 10:04 | XMS ---
PreManage Notification: ANNE MARIE BAZAN Security Siding Mechanic Events No recent Security Events currently on file CRITERIA MET - [facility] CARE PROVIDERS ARIANA MARADIAGA Physician Roll Carrier Current PHONE: Unknown ANGELA NAVARRO [facility] 03/25/2019-Current PHONE: Unknown Mahin has no Care Guidelines for this patient. Care History Medical/Surgical 06/24/2019 [facility] - PATIENT HAS A PRE OP APT WITH DR NAVARRO ON 07/09/2019. 03/25/2019 [facility] - PATIENT HAS A FOLLOW UP APT WITH DR ANDERSON- ON 04/01/19 E.[place]yanne VISIT COUNT (12 MO.) 4 [facility] TOTAL 4 NOTE: Visits indicate total known visits. 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 - Nicotine dependence, unspecified, uncomplicated - Allergy status to other drugs, medicaments and biological substances 07/18/2021 13:04 [facility] [place] TYPE: Emergency COMPLAINT: - ABDOMONAL PAIN DIAGNOSES: - Other group home (current) drug therapy - Melena - Allergy status to other drugs, medicaments and biological substances - Bee allergy status - Diarrhea, unspecified - Nicotine dependence, unspecified, uncomplicated - Migraine, unspecified, not intractable, without status migrainosus - Unspecified abdominal pain - Noninfective gastroenteritis and colitis, unspecified 05/16/2021 15:56 [facility] [place] TYPE: Emergency COMPLAINT: - LT KNEE PAIN DIAGNOSES: - Allergy status to other drugs, medicaments and biological substances - Migraine, unspecified, not intractable, without status migrainosus - Nicotine dependence, unspecified, uncomplicated - 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
== END 2022-02-06 13:25 | disposition home or self-care (01) ==
LOC: ED 10:02
DX: G43.909 Migraine, unspecified, not intractable, without status migrainosus (principal); F17.200 Nicotine dependence, unspecified, uncomplicated; Z88.8 Allergy status to other drugs, medicaments and biological substances; Z91.038 Other insect allergy status; Z79.899 Other long term (current) drug therapy
CPT/HCPCS: J1100; J1885; J2405; J3475; J7030

== ENCOUNTER 2022-05-14 20:39 | Emergency (ER) | payer BC, OTHER ==
[~2022-05-14] VITALS: Ht 167.6 cm; Wt 90.7 kg
--- OUTSIDE RECORDS SUMMARY | 2022-05-14 20:42 | XMS ---
PreManage Notification: ANNE MARIE BAZAN Security Behaviorist Events No recent Security Events currently on file CRITERIA MET - [facility] CARE PROVIDERS ARIANA MARADIAGA Physician X Ray Developing Machine Operator Current PHONE: Unknown ANGELA NAVARRO [facility] 03/25/2019-Current PHONE: Unknown Mahin has no Care Guidelines for this patient. Care History Medical/Surgical 06/24/2019 [facility] - PATIENT HAS A PRE OP APT WITH DR NAVARRO ON 07/09/2019. 03/25/2019 [facility] - PATIENT HAS A FOLLOW UP APT WITH DR ANDERSON- ON 04/01/19 E.D[place]yanne VISIT COUNT (12 MO.) [address] [facility] TOTAL 5 NOTE: Visits indicate total known visits. ED/UCC VISIT TRACKING (12 MO.) 05/14/2022 20:40 [facility] [place] TYPE: Emergency COMPLAINT: - L KNEE INJ 02/06/2022 10:02 [facility] [place] TYPE: Emergency COMPLAINT: - HEADACHE DIAGNOSES: - Allergy status to other drugs, medicaments and biological substances - Nicotine dependence, unspecified, uncomplicated - Other senior care (current) drug therapy - Other insect allergy status - Headache, unspecified - Migraine, unspecified, not intractable, without status migrainosus 09/19/2021 01:58 [facility] [place] TYPE: Emergency COMPLAINT: - HEADACHE DIAGNOSES: - Headache, unspecified - Migraine, unspecified, not intractable, without status migrainosus - Other senior care (current) drug therapy - Nicotine dependence, unspecified, uncomplicated - Allergy status to other drugs, medicaments and biological substances - Bee allergy status 07/18/2021 13:04 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
[2022-05-14] MEDS ORDERED: DICLOFENAC SODI75 MG PO (21:08)
[2022-05-14] MEDS ORDERED: NURTEC ODT75 MG PO (21:08)
[2022-05-15] MEDS ORDERED: HYDROCODON-ACE1 EA10 PO (00:35)
== END 2022-05-15 00:44 | disposition home or self-care (01) ==
LOC: ED 20:39
DX: M25.262 Flail joint, left knee (principal); G43.909 Migraine, unspecified, not intractable, without status migrainosus; Z87.442 Personal history of urinary calculi; F17.200 Nicotine dependence, unspecified, uncomplicated; Z88.8 Allergy status to other drugs, medicaments and biological substances; Z91.030 Bee allergy status; Z79.899 Other long term (current) drug therapy
CPT/HCPCS: 96372; 99283; A9270; J1885; J3360

== ENCOUNTER 2022-08-01 09:28 | Day surgery (SDC) | payer BC, OTHER ==
[~2022-08-01] VITALS: Ht 167.6 cm; Wt 87.3 kg
--- NOTE | ~2022-08-01 | OR ---
[facility] [address], [place] [address] Draft DATE OF OPERATION: 08/01/2022 SURGEON: Deb Blankenship MD PREOPERATIVE DIAGNOSIS: Chondral defect, left knee. POSTOPERATIVE DIAGNOSES: 1. Chondral defect, left knee. 2. Lateral meniscal tear. PROCEDURES PERFORMED: 1. Left knee arthroscopy with microfracture medial femoral condyle, lateral femoral condyle. 2. Partial lateral meniscectomy. MANAGER OF CONSTRUCTION: Ronda Macias PA-C. ANESTHESIA: General. BLOOD LOSS: Minimal. BRIEF HISTORY: Marcie is a 42-year-old lady with a sore knee, who had an ACL reconstruction and did well until recently. Her MRI showed no significant meniscus tears or ACL to be torn and the chondral defects. She was actually interested in total knee however given the status for her x-rays and her MRI, I did not feel she qualify quite yet, so we elected to go of microfracture. Risks, benefits, and alternatives of surgery were discussed with her and she elected to proceed. PROCEDURE IN DETAIL: Once consent was obtained, she was taken to the operating room. After adequate anesthesia she was placed on operating room table. The right leg was flexed, abducted and externally rotated on a well-padded leg magdaleno. The left was placed in well-padded leg magdaleno with no tourniquet. The prior incision sites were then marked out after the leg was prepped and draped. The incision sites were injected with 4% Marcaine with epinephrine. The inferolateral and superolateral portals were established and scope PATIENT NAME: MARCIE BAZAN OPERATIVE REPORT DATE OF : 78 REPORT #: [id number] PHYSICIAN: DEB BLANKENSHIP MD PCP: ARIANA MARADIAGA PAC REPORT IS CONFIDENTIAL AND NOT TO BE RELEASED WITHOUT AUTHORIZATION [facility] [address], [place] [address] Draft placed in the knee. 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 She had nothing on the trochlear side. Lateral femoral condyle had an 8 mm x 1.2 cm lesion in the midportion of the lateral femoral condyle with a posterior lateral meniscus tear. The medial compartment showed no meniscus tear. There was a small lesion in the medial femoral condyle. The remainder of the cartilage appeared to be intact. The description of operation standard inferomedial portal was established and the two lesions were then debrided using the shaver followed by the ring curette to create a 90 degree side. They were then both microfractured with the microfracture awls. The base of lesions were noted to bleed briskly at the end of the procedure. The scope was then withdrawn. We did take out the posterior lateral meniscus tear with the straight biter and shaver. Then the scope was withdrawn. Portals were closed with 3-0 nylon, dressed with Adaptic, ABD and Max wrap. She tolerated the procedure well. All sponge, needle, and instrument counts were correct. Deb Blankenship MD BA/MODL /[id number] Copies: ~ PATIENT NAME: MARCIE BAZAN OPERATIVE REPORT DATE OF : 78 REPORT #: [id number] PHYSICIAN: DEB BLANKENSHIP MD PCP: ARIANA MARADIAGA PAC REPORT IS CONFIDENTIAL AND NOT TO BE RELEASED WITHOUT AUTHORIZATION
[~2022-08-01 09:28] MED LIST changes: +HYDROCODON-ACE1 EA10 PO; +NURTEC ODT75 MG PO
--- NOTE | 2022-08-01 11:56 | NUR ---
08/01/22 1156 Alfreda Wilson 1150 PATIENT ARRIVES TO PACU AWAKE BUT DROWSY. REPOSITIONS SELF TO LEFT SIDE. PILLOW GIVEN TO PUT BETWEEN LEGS. WARM BLANKETS AND KARL PAWS ON PER PATIENT REQUEST. PATIENT C/O SORE THROAT AND KNEE PAIN. PATIENT SLEEPING WHEN NOT STIMULATED.
--- NOTE | 2022-08-01 13:36 | NUR ---
PT RESTING IN BED WITH AT BEDSIDE. PT URINATE, ATE CRACKERS AND DRANK ICE WATER AT BEDSIDE. PT REPORTS 6/10 PAIN IN LEFT KNEE. BRACE O LEFT KNEE. PT DENIES NAUSEA. CALL LIGHT WITHIN REACH.
--- NOTE | 2022-08-01 14:14 | NUR ---
DISCHARGE INSTRUCTIONS REVIEWED WITH PT. NO QUESTIONS OR CONCERNS. IV D/C WNL, TIP INTACT. PT PUT ON PERSONAL CLOTHES WITH MINIMAL ASSISTANCE. PT D/C ROM DAY SURGERY VIA WHEELCHAIR TO PERSONAL AUTOMOBILE TO .
--- NOTE | 2022-08-01 15:50 | NUR ---
PT CALLS DS DEPT AND STATES THERE WAS NO PRESCRIPTION AT PHARMACY. THIS RN CALLS DR. BURRELL WHO STATES HE WILL ESCRIPT PAIN MEDICATION TO [facility] NOW. PT CALLED BACK WITH RELAYED INFORMATION.
== END 2022-08-01 14:10 | disposition home or self-care (01) ==
LOC: DS 09:28
PROVIDERS: ATTEND Specialist
PROC: 0SQD4ZZ Repair Left Knee Joint, Percutaneous Endoscopic Approach (ICD-10-PCS; principal; 2022-08-01 11:40)
DX: S83.282A Other tear of lateral meniscus, current injury, left knee, initial encounter (principal); S83.512A Sprain of anterior cruciate ligament of left knee, initial encounter; Z88.8 Allergy status to other drugs, medicaments and biological substances; F41.9 Anxiety disorder, unspecified; F32.A Depression, unspecified; M93.962 Osteochondropathy, unspecified, left lower leg
CPT/HCPCS: 36415; 80053; 85025; A9270; J0131; J0690; J1100; J1170; J1885; J2001; J2250; J2405; J2704; J3010; J7121

== ENCOUNTER 2023-04-23 20:56 | Emergency (ER) | payer BC, OTHER ==
[~2023-04-23] VITALS: Ht 167.6 cm; Wt 82.1 kg
[~2023-04-23 20:56] MED LIST changes: +CEFUROXIME250 MG PO; +DESVENLAFAXINE100 MG PO; +OXYCODONE HCL5 MG PO; +SENNA LAX8.6 MG PO; +XARELTO10 MG PO
--- OUTSIDE RECORDS SUMMARY | 2023-04-23 20:59 | XMS ---
PreManage Notification: ANNE MARIE BAZAN Security Aperture Mask Etcher Events No recent Security Events currently on file CRITERIA MET - [facility] CARE PROVIDERS ANGELA NAVARRO J2Ee Consultant 03/25/2019-Current PHONE: Unknown -[place]- [facility]ist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 Care History Medical/Surgical 06/24/2019 [facility] - PATIENT HAS A PRE OP APT WITH DR NAVARRO ON 07/09/2019. 03/25/2019 [facility] - PATIENT HAS A FOLLOW UP APT WITH DR ANDERSON- ON 04/01/19 [place] VISIT COUNT (12 MO.) 2 [facility] TOTAL 2 NOTE: Visits indicate total known visits. ED/UCC VISIT TRACKING (12 MO.) 04/23/2023 20:57 [facility] [place] TYPE: Emergency COMPLAINT: - HEADACHE 05/14/2022 20:[address] [facility] [place] TYPE: Emergency COMPLAINT: - L KNEE INJ DIAGNOSES: - Allergy status to other drugs, medicaments and biological substances - Bee allergy status - Flail joint, left knee - Migraine, unspecified, not intractable, without status migrainosus - Nicotine dependence, unspecified, uncomplicated - Other senior living (current) drug therapy - Pain in left knee - Personal history of urinary calculi INPATIENT VISIT TRACKING (12 MO.) No inpatient visits to display in this time frame [id number]
[2023-04-23 21:12] LABS: PH, VENOUS 7.465 (7.31-7.41)
[2023-04-23 21:14] LABS: HEMOGLOBIN 11.8 g/dL (12.0-18.0)
[2023-04-23 21:17] LABS: BASOPHILS 0.8 % (0-2); EOSINOPHILS 3.8 % (0-6); HEMATOCRIT 34.6 % (35.0-50.0); LYMPHOCYTES 22.7 % (24-44); MCHC 34.2 g/dl (30-36); MCV 93.6 fl (81-99); MONOCYTES 8.6 % (0-12); NEUTROPHILS 64.1 % (39-80); PLATELET COUNT 441 K/uL (140-440); RBC 3.69 M/ul (4.3-5.7); RDW 12.6 (10.5-15.0)
[2023-04-23 21:30] LABS: ALBUMIN 3.2 g/dL (3.4-5.0); ALBUMIN/GLOBULIN RATIO 0.86 (1.1-2.4); ALCOHOL, MEDICAL <3 ng/dL (<3); ALKALINE PHOSPHATASE 77 U/L (46-116); ALT (SGPT) 22 U/L (14-59); ANION GAP 10.8 (7-21); AST (SGOT) 20 U/L (15-37); BILIRUBIN, TOTAL 0.4 ng/dL (0.2-1.0); BUN/CREATININE RATIO 26.76 (6.0-28.6); CALCIUM 8.9 mg/dL (8.5-10.1); CARBON DIOXIDE 27 mmol/L (21-32); CHLORIDE 104 mmol/L (98-107); CREATININE, SERUM 0.71 mg/dL (0.55-1.02); GLOMERULAR FILTRATION RATE,EST 108 mL/min (>60); POTASSIUM 3.8 mmol/L (3.5-5.1); PROTEIN, TOTAL 6.9 g/dL (6.4-8.2); UREA NITROGEN 19 mg/dL (7-18)
[2023-04-23 21:51] LABS: INFLUENZA B NAA NEGATIVE (NEGATIVE); RESPIRATORY SYNCYTIAL VIR NAA NEGATIVE (NEGATIVE)
[2023-04-23] MEDS ORDERED: ONDANSETRON ODT8 MG PO (23:14)
[2023-04-23 23:21] LABS: AMPHETAMINES, URINE NEGATIVE (NEGATIVE); BARBITURATES, URINE NEGATIVE (NEGATIVE); BENZODIAZEPINE, URINE NEGATIVE (NEGATIVE); BUPRENORPHINE, URINE NEGATIVE (NEGATIVE); CANNABINOID, URINE POSITIVE (NEGATIVE); COCAINE, URINE NEGATIVE (NEGATIVE); ECSTASY, URINE NEGATIVE (NEGATIVE); FENTANYL, URINE NEGATIVE (NEGATIVE); METHADONE, URINE NEGATIVE (NEGATIVE); OPIATES, URINE NEGATIVE (NEGATIVE); OXYCODONE, URINE POSITIVE (NEGATIVE); PHENCYCLIDINE, URINE NEGATIVE (NEGATIVE)
[2023-04-23 23:50] VITALS: BP 115/65
== END 2023-04-23 23:50 | disposition home or self-care (01) ==
LOC: ED 20:56
PROVIDERS: Family Medicine
DX: T50.905A Adverse effect of unspecified drugs, medicaments and biological substances, initial encounter (principal); R11.0 Nausea; R42 Dizziness and giddiness; R53.1 Weakness; Z79.02 Long term (current) use of antithrombotics/antiplatelets; Z79.899 Other long term (current) drug therapy; Z79.890 Hormone replacement therapy; Z11.52 Encounter for screening for COVID-19; Z91.038 Other insect allergy status; Z88.8 Allergy status to other drugs, medicaments and biological substances
CPT/HCPCS: 36415; 71260; 80053; 80307; 82803; 83605; 84484; 84703; 85025; 85379; 87502; 96375; 99284-25; C9803; G0480; J2270; J2405; J7030; U0002

== ENCOUNTER 2023-10-14 10:21 | Emergency (ER) | payer BC, OTHER ==
[~2023-10-14] VITALS: Ht 167.6 cm; Wt 88.9 kg
--- OUTSIDE RECORDS SUMMARY | 2023-10-14 10:25 | XMS ---
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 Care History Medical/Surgical 06/24/2019 [facility] \R\- PATIENT HAS A PRE OP APT WITH DR NAVARRO ON 07/09/2019. 03/25/2019 [facility] \R\- PATIENT HAS A FOLLOW UP APT WITH DR ANDERSON- ON 04/01/19 [place] VISIT COUNT (12 MO.) [address] [facility] TOTAL 2 NOTE: Visits indicate total known visits. 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
[2023-10-14] MEDS ORDERED: CEPHALEXIN500 M1 PO (10:57)
[2023-10-14 11:05] VITALS: BP 127/71
== END 2023-10-14 11:06 | disposition home or self-care (01) ==
LOC: ED 10:21
DX: T25.122A Burn of first degree of left foot, initial encounter (principal); L03.116 Cellulitis of left lower limb; W20.8XXA Other cause of strike by thrown, projected or falling object, initial encounter; F17.200 Nicotine dependence, unspecified, uncomplicated; Z96.652 Presence of left artificial knee joint; Z91.030 Bee allergy status; Z79.02 Long term (current) use of antithrombotics/antiplatelets
CPT/HCPCS: 99283

== ENCOUNTER 2023-11-16 10:47 | Emergency (ER) | payer BC, OTHER ==
[~2023-11-16] VITALS: Ht 167.6 cm; Wt 80.0 kg
[~2023-11-16 10:47] MED LIST changes: +CEPHALEXIN500 M1 PO
--- OUTSIDE RECORDS SUMMARY | 2023-11-16 10:50 | XMS ---
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 Care History Medical/Surgical 06/24/2019 [facility] \R\- PATIENT HAS A PRE OP APT WITH DR NAVARRO ON 07/09/2019. 03/25/2019 [facility] \R\- PATIENT HAS A FOLLOW UP APT WITH DR ANDERSON- ON 04/01/19 [place] VISIT COUNT (12 MO.) 3 [facility] TOTAL 3 NOTE: Visits indicate total known visits. 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 - Nicotine dependence, unspecified, uncomplicated - Other cause of strike by thrown, projected or falling object, initial encounter - Presence of left artificial knee joint - Unspecified injury of left foot, initial encounter 04/23/2023 20:57 [facility] [place] TYPE: Emergency COMPLAINT: - HEADACHE DIAGNOSES: - Adverse effect of unspecified drugs, medicaments and biological substances, initial encounter - Allergy status to other drugs, medicaments and biological substances - Dizziness and giddiness - Encounter for screening for COVID-19 - Hormone replacement therapy - 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
[2023-11-16] MEDS ORDERED: TAMSULOSIN HCL0.4 MG PO (11:01)
[2023-11-16 11:13] LABS: BILIRUBIN, URINE NEGATIVE (negative); BLOOD/HGB, URINE NEGATIVE (Negative); KETONE, URINE NEGATIVE (Negative); LEUK ESTERASE, URINE NEGATIVE (negative); NITRITE, URINE NEGATIVE (negative); PH, URINE 5.5 (5-7)
[2023-11-16] MEDS ORDERED: ondansetron HCL 4 MG/2 ML VIAL IV ONE (11:15)
[2023-11-16] MEDS ORDERED: KETOROLAC TROMETHAMINE 30 MG/ML VIAL IV ONE (11:15)
[2023-11-16] MEDS ORDERED: SODIUM CHLORIDE 0.9% 1,000 ML IV ONE (11:15)
[2023-11-16 11:26] LABS: BASOPHILS 0.8 % (0-2); EOSINOPHILS 1.5 % (0-6); HEMATOCRIT 36.3 % (35.0-50.0); HEMOGLOBIN 12.6 g/dL (12.0-18.0); LYMPHOCYTES 28.3 % (24-44); MCH 32.1 (27-36); MCHC 34.7 g/dl (30-36); MCV 92.7 fl (81-99); MONOCYTES 6.6 % (0-12); NEUTROPHILS 62.8 % (39-80); PLATELET COUNT 294 K/uL (140-440); RBC 3.92 M/ul (4.3-5.7); RDW 12.3 (10.5-15.0)
[2023-11-16 11:41] LABS: ALBUMIN 3.6 g/dL (3.4-5.0); ALBUMIN/GLOBULIN RATIO 1.06 (1.1-2.4); ANION GAP 12.9 (7-21); BILIRUBIN, TOTAL 1.1 ng/dL (0.2-1.0); BUN/CREATININE RATIO 22.53 (6.0-28.6); CALCIUM 8.5 mg/dL (8.5-10.1); CREATININE, SERUM 0.71 mg/dL (0.55-1.02); POTASSIUM 3.9 mmol/L (3.5-5.1)
[2023-11-16] MEDS ORDERED: HYDROmorphone HCL 1 MG/ML SYR IV PRN (12:00)
[2023-11-16] MEDS ORDERED: LIDOCAINE HCL 4% 1 EACH PATCH TD ONE (12:30)
[2023-11-16 12:35] VITALS: BP 157/99
[2023-11-16] MEDS ORDERED: LIDOCAINE PATCH REMOVAL 1 EA TD SCH (21:00)
== END 2023-11-16 12:35 | disposition home or self-care (01) ==
LOC: ED 10:47
PROVIDERS: Emergency Medicine
DX: N20.0 Calculus of kidney (principal); Z87.442 Personal history of urinary calculi; G43.909 Migraine, unspecified, not intractable, without status migrainosus; F17.200 Nicotine dependence, unspecified, uncomplicated; Z88.8 Allergy status to other drugs, medicaments and biological substances; Z91.030 Bee allergy status; Z79.899 Other long term (current) drug therapy
CPT/HCPCS: 36415; 74176; 80053; 81003; 83690; 85025; 96374; 96375; 99284-25; A9270; J1170; J1885; J2405; J7030

== ENCOUNTER 2025-03-01 11:28 | Emergency (ER) | payer BC, OTHER ==
[~2025-03-01] VITALS: Ht 167.6 cm; Wt 90.0 kg
[~2025-03-01 11:28] MED LIST changes: +TAMSULOSIN HCL0.4 MG PO
[2025-03-01] MEDS ORDERED: LORazepam 2 MG/ML VIAL IV PRN (11:45)
[2025-03-01] MEDS ORDERED: SODIUM CHLORIDE 0.9% 1,000 ML IV ONE (11:45)
[2025-03-01 11:48] LABS: BASOPHILS 0.5 % (0.1-1.2); EOSINOPHILS 0 % (0.7-5.8); LYMPHOCYTES 15.9 % (19.3-51.7); MCH 31.3 PG (25.6-32.2); MCHC 34.6 g/dL (32.2-35.5); MCV 90.6 fL (79.4-94.8); MONOCYTES 3.8 % (4.7-12.5); NEUTROPHILS 79.5 % (34.0-71.1); RBC 4.98 M/uL (3.93-5.22)
[2025-03-01 11:58] LABS: ALT (SGPT) 27.0 U/L (14-59); AST (SGOT) 16.0 U/L (15-37); GLOMERULAR FILTRATION RATE,EST 103.0 mL/min (>60); PROTEIN, TOTAL 9.0 g/dL (6.4-8.2); UREA NITROGEN 16.0 mg/dL (7-18)
[2025-03-01] MEDS ORDERED: HYDROmorphone HCL 1 MG/ML SYR IV PRN (14:00)
[2025-03-01] MEDS ORDERED: KETOROLAC TROMETHAMINE 15 MG/ML VIAL IV ONE (14:00)
[2025-03-01] MEDS ORDERED: HYDROCODONE/ACETA 7.5/325 TAB PO ONE (16:45)
[2025-03-01] MEDS ORDERED: PROMETHAZINE HC25 M1 PO (17:59)
[2025-03-01] MEDS ORDERED: HYDROCODON-ACE1 EA10 PO (17:59)
[2025-03-01] MEDS ORDERED: HYDROCODONE BIT/ACETAMINOPHEN 5/325 MG 1 TAB HOME.PACK PO ONE (18:00)
[2025-03-01] MEDS ORDERED: PROMETHAZINE HCL 25 MG HOME.PACK PO ONE (18:00)
[2025-03-01 18:15] VITALS: BP 138/72
== END 2025-03-01 18:16 | disposition home or self-care (01) ==
LOC: ED 11:28
PROVIDERS: Emergency Medicine
DX: T50.991A Poisoning by other drugs, medicaments and biological substances, accidental (unintentional), initial encounter (principal); R11.2 Nausea with vomiting, unspecified; F17.200 Nicotine dependence, unspecified, uncomplicated; Z96.652 Presence of left artificial knee joint; Z91.030 Bee allergy status; Z88.8 Allergy status to other drugs, medicaments and biological substances; Z79.02 Long term (current) use of antithrombotics/antiplatelets; Z79.899 Other long term (current) drug therapy
CPT/HCPCS: 36415; 80053; 83690; 85025; 96361; 96374; 96375; 99284-25; A9270; J1171; J1790; J1885; J2060; J2405; J7030

== ENCOUNTER 2025-04-14 00:50 | Emergency (ER) | payer BC, OTHER ==
[~2025-04-14] VITALS: Ht 167.6 cm; Wt 90.0 kg
--- OUTSIDE RECORDS SUMMARY | ~2025-04-14 | XMS | Continuity of Care Document ---
Demographics + + + | Address | [address] | | | [place] [address] | + + + | Preferred Language | Unknown | + + + | Marital Status | | + + + | Buddhism Affiliation | Unknown | + + + | Race | White | + + + | Ethnic Group | Not or | + + + Author + + + | Author | [facility] | + + + | Organization | [facility] | + + + | Address | [address] | | | [place] [address] | + + + | Phone | | + + + Care Team Providers + + + + | Care Night Guard Name | Role | Phone | + + + + Unavailable | Unavailable | + + + + Unavailable | Unavailable | + + + + Allergies and Intolerances + + + + + + | date | description | facility | reaction | severity | + + + + + + | 2025-03-01 | Wasp venom | [facility] | (no reaction) | (no severity) | | 00:00 | | [facility] | | | + + + + + + | 2025-03-01 | Metoclopramide | [facility] - | (no reaction) | Moderate | | 00:00 | | [facility] | | | + + + + + + | 2025-03-01 | Metoclopramide | [facility] - | (no reaction) | Moderate | | 00:00 | | [facility] | | | + + + + + + | 2025-03-01 | Metoclopramide | [facility] - | (no reaction) | Moderate | | 00:00 | | [facility] | | | + + + + + + | 2025-03-01 | Wasp venom | [facility] - | (no reaction) | (no severity) | | 00:00 | | [facility] | | | + + + + + + | 2025-03-01 | UNK | [facility] - | Agitation | Severe | | 00:00 | | [facility] | | | + + + + + + Encounters No information. Functional Status No information. Immunizations No information. Medications + + + + | date | description | facility | + + + + | (no date) | OXYCODONE | [facility] | | | HCL/ACETAMINOPHEN | [facility] | + + + + | (no date) | OXYCODONE | [facility] | | | HCL/ACETAMINOPHEN | [facility] | + + + + | (no date) | GABAPENTIN | [facility] | | | | [facility] | + + + + | (no date) | ESTRADIOL | [facility] | | | | [facility] | + + + + | (no date) | NAPROXEN | [facility] | | | | [facility] | + + + + | (no date) | ACETAMINOPHEN | [facility] | | | | [facility] | + + + + | (no date) | | [facility] | | | ASPIRIN/ACETAMINOPHEN/CAFFE | [facility] | | | INE | | + + + + | (no date) | RIZATRIPTAN BENZOATE | [facility] | | | | [facility] | + + + + | (no date) | ESTRADIOL | [facility] | | | | [facility] | + + + + | (no date) | IBUPROFEN | [facility] | | | [facility] | + + + + | (no date) | RIZATRIPTAN BENZOATE | [facility] | | | | [facility] | + + + + | (no date) | ESCITALOPRAM OXALATE | [facility] | | | | [facility] | + + + + | (no date) | ESCITALOPRAM OXALATE | [facility] | | | | [facility] | + + + + | (no date) | ESCITALOPRAM OXALATE | [facility] | | | | [facility] | + + + + | (no date) | DULOXETINE HCL | [facility] | | | | [facility] | + + + + | (no date) | TRAMADOL HCL | [facility] | | | | [facility] | + + + + | (no date) | TRAMADOL HCL | [facility] | | | | [facility] | + + + + | (no date) | DICLOFENAC SODIUM | [facility] | | | | [facility] | + + + + | 2025-03-01 00:00 | HYDROCODONE | [facility] | | | BIT/ACETAMINOPHEN | [facility] | + + + + | (no date) | HYDROCODONE | [facility] | | | BIT/ACETAMINOPHEN | [facility] | + + + + | (no date) | TAMSULOSIN HCL | [facility] | | | | [facility] | + + + + | 2025-03-01 00:00 | PROMETHAZINE HCL | [facility] | | | | [facility] | + + + + | (no date) | HYDROXYZINE HCL | [facility] | | | | [facility] | + + + + Problems + + + + | date | description | facility | + + + + | 2025-03-01 00:00 | Acute gastritis | [facility] | | | | [facility] | + + + + | 2025-03-01 00:00 | Adverse effect of drug | [facility] | | | | [facility] | + + + + Procedures No information. Results/Labs +--------+--------+ +---------+--------+---------+ | test | date | facility | value | unit | notes | +--------+--------+ +---------+--------+---------+ + + | Result panel 1 | + + + + + +---------+ + + | WBC # Bld | 2025-03-01 | | 13.60 | (missing) | (missing) | | Auto | 11:38:07 | [facility] | | | | + + + +---------+ + + + + | Result panel 2 | + + + + + +--------+ + + | Lymphocytes | 2025-03-01 | | 15.9 | (missing) | (missing) | | NFr Bld | 11:38:07 | [facility] | | | | | Auto | [facility] | | | | + + + +--------+ + + + + | Result panel 3 | + + + + + +-------+ + + | Monocytes | 2025-03-01 | | 3.8 | (missing) | (missing) | | NFr Bld Auto | 11:38:07 | [facility] | | | | + + + +-------+ + + + + | Result panel 4 | + + + + + +-----+ + + | Eosinophil | 2025-03-01 | | 0 | (missing) | (missing) | | NFr Bld Auto | 11:38:07 | [facility] | | | | + + + +-----+ + + + + | Result panel 5 | + + + + + +-------+ + + | Basophils | 2025-03-01 | | 0.5 | (missing) | (missing) | | NFr Bld Auto | 11:38:07 | [facility] | | | | + + + +-------+ + + + + | Result panel 6 | + + + + + +------+---------+ + | Glucose | 2025-03-01 | | 94 | mg/dL | (missing) | | SerPl-mCnc | 11:38:07 | [facility] | | | | + + + +------+---------+ + + + | Result panel 7 | + + + + + +------+---------+ + | BUN | 2025-03-01 | | 16 | mg/dL | (missing) | | SerPl-mCnc | 11:38:07 | [facility] | | | | + + + +------+---------+ + + + | Result panel 8 | + + + + + +--------+---------+ + | Creat | 2025-03-01 | | 0.73 | mg/dL | (missing) | | SerPl-mCnc | 11:38:07 | [facility] | | | | + + + +--------+---------+ + + + | Result panel 9 | + + + + + +-------+ + + | eGFRcr | 2025-03-01 | | 103 | (missing) | (missing) | | SerPlBld | 11:38:07 | [facility] | | | | | CKD-EPI 2020 | [facility] | | | | + + + +-------+ + + + + | Result panel 10 | + + + + + +---------+ + + | BUN/Creat | 2025-03-01 | | 21.91 | (missing) | (missing) | | SerPl | 11:38:07 | [facility] | | | | + + + +---------+ + + + + | Result panel 11 | + + + + + +-------+ + + | Sodium | 2025-03-01 | | 139 | (missing) | (missing) | | SerPl-sCnc | 11:38:07 | [facility] | | | | + + + +-------+ + + + + | Result panel 12 | + + + + + +--------+ + + | RBC # Bld | 2025-03-01 | | 4.98 | (missing) | (missing) | | Auto | 11:38:07 | [facility] | | | | + + + +--------+ + + + + | Result panel 13 | + + + + + +-------+ + + | Potassium | 2025-03-01 | | 3.3 | (missing) | (missing) | | SerPl-sCnc | 11:38:07 | [facility] | | | | + + + +-------+ + + + + | Result panel 14 | + + + + + +-------+ + + | Chloride | 2025-03-01 | | 101 | (missing) | (missing) | | SerPl-sCnc | 11:38:07 | [facility] | | | | + + + +-------+ + + + + | Result panel 15 | + + + + + +------+ + + | CO2 | 2025-03-01 | | 24 | (missing) | (missing) | | SerPl-sCnc | 11:38:07 | [facility] | | [facility] | | | | + + + +------+ + + + + | Result panel 16 | + + + + + +--------+ + + | Anion Gap | 2025-03-01 | | 17.3 | (missing) | (missing) | | SerPl | 11:38:07 | [facility] | | | | | Calculated.4 | [facility] Ions-sCnc | [facility] | | | | + + + +--------+ + + + + | Result panel 17 | + + + + + +-------+---------+ + | Calcium | 2025-03-01 | | 9.7 | mg/dL | (missing) | | SerPl-mCnc | 11:38:07 | [facility] | [facility] | | | | + + + +-------+---------+ + + + | Result panel 18 | + + + + + +-------+ + + | Prot | 2025-03-01 | | 9.0 | (missing) | (missing) | | SerPl-mCnc | 11:38:07 | [facility] | | | | + + + +-------+ + + + + | Result panel 19 | + + + + + +-------+ + + | Albumin | 2025-03-01 | | 4.5 | (missing) | (missing) | | SerPl-mCmalik | 11:38:07 | [facility] | | | | + + + +-------+ + + + + | Result panel 20 | + + + + + +-------+ + + | Globulin | 2025-03-01 | | 4.5 | (missing) | (missing) | | Ser-mCnc | 11:38:07 | [facility] | | | | + + + +-------+ + + + + | Result panel 21 | + + + + + +--------+ + + | | 2025-03-01 | | 1.00 | (missing) | (missing) | | Albumin/Glob | 11:38:07 | [facility] | | | | | SerPl | [facility] | | | | + + + +--------+ + + + + | Result panel 22 | + + + + + +-------+---------+ + | Bilirub | 2025-03-01 | | 0.9 | mg/dL | (missing) | | SerPl-mCnc | 11:38:07 | [facility] | | | | + + + +-------+---------+ + + + | Result panel 23 | + + + + + +--------+ + + | Hgb | 2025-03-01 | | 15.6 | (missing) | (missing) | | Bld-mCnc | 11:38:07 | [facility] | | | | + + + +--------+ + + + + | Result panel 24 | + + + + + +------+ + + | AST | 2025-03-01 | | 16 | (missing) | (missing) | | SerPl-cCnc | 11:38:07 | [facility] | | | | + + + +------+ + + + + | Result panel 25 | + + + + + +------+ + + | ALT | 2025-03-01 | | 27 | (missing) | (missing) | | SerPl-[facility] | 11:38:07 | [facility] | | | | + + + +------+ + + + + | Result panel 26 | + + + + + +------+ + + | ALP | 2025-03-01 | | 79 | (missing) | (missing) | | SerPl-cCnc | 11:38:07 | [facility] | | | | + + + +------+ + + + + | Result panel 27 | + + + + + +-------+ + + | Lipase | 2025-03-01 | | 102 | (missing) | (missing) | | SerPl-cCnc | 11:38:07 | [facility] | | | | + + + +-------+ + + + + | Result panel 28 | + + + + + +--------+ + + | Hct VFr.DF | 2025-03-01 | | 45.1 | (missing) | (missing) | | Bld Auto | 11:38:07 | [facility] | | | | + + + +--------+ + + + + | Result panel 29 | + + + + + +--------+ + + | RBC Auto | 2025-03-01 | | 90.6 | (missing) | (missing) | | | 11:38:07 | [facility] | | | | + + + +--------+ + + + + | Result panel 30 | + + + + + +--------+ + + | MCH RBC Qn | 2025-03-01 | | 31.3 | (missing) | (missing) | | Auto | 11:38:07 | [facility] | | | | + + + +--------+ + + + + | Result panel 31 | + + + + + +--------+ + + | MCHC RBC | 2025-03-01 | | 34.6 | (missing) | (missing) | | Auto-EntMCnc | 11:38:07 | [facility] | | | | + + + +--------+ + + + + | Result panel 32 | + + + + + +-------+ + + | Platelet # | 2025-03-01 | | 531 | (missing) | (missing) | | Bld Auto | 11:38:07 | [facility] | | | | + + + +-------+ + + + + | Result panel 33 | + + + + + +--------+ + + | Neutrophils | 2025-03-01 | | 79.5 | (missing) | (missing) | | NFr Bld | 11:38:07 | [facility] | | | | | Auto | [facility] | | | | + + + +--------+ + + Social History +--------+ + + | date | description | facility | +--------+ + + Vital Signs + + + +---------+ | date | measurement | value | units | + + + +---------+ | 2025-03-01 00:00 | BMI | 32.0 | kg/m2 | + + + +---------+ | 2025-03-01 00:00 | BP_diastolic | 72 | mmHg | + + + +---------+ | 2025-03-01 00:00 | BP_systolic | 138 | mmHg | + + + +---------+ | 2025-03-01 00:00 | heart_rate | 80 | /min | + + + +---------+ | 2025-03-01 00:00 | height_metric | 167.64 | cm | + + + +---------+ | 2025-03-01 00:00 | height_standard | 66 | in | + + + +---------+ | 2025-03-01 00:00 | o2_saturation | 98 | % | + + + +---------+ | 2025-03-01 00:00 | respiration_rate | 16 | /min | + + + +---------+ | 2025-03-01 00:00 | | 98.2 | F | | | temperature_standar | | | | | d | | | + + + +---------+ | 2025-03-01 00:00 | weight_metric | 90.001 | kg | + + + +---------+ | 2025-03-01 00:00 | weight_standard | 198.418 | lb | + + + +---------+"
[~2025-04-14 00:50] MED LIST changes: +PROMETHAZINE HC25 M1 PO
[2025-04-14] MEDS ORDERED: PROCHLORPERAZINE EDISYLATE 10 MG/2 ML VIAL IV ONE (01:15)
[2025-04-14] MEDS ORDERED: LACTATED RINGER'S 1,000 ML IV ONE (01:15)
[2025-04-14] MEDS ORDERED: KETOROLAC TROMETHAMINE 30 MG/ML VIAL IV ONE (01:15)
[2025-04-14] MEDS ORDERED: ACETAMINOPHEN 500 MG TAB PO ONE (03:00)
[2025-04-14 03:20] VITALS: BP 142/73
== END 2025-04-14 03:20 | disposition home or self-care (01) ==
LOC: ED 00:50
DX: G43.909 Migraine, unspecified, not intractable, without status migrainosus (principal); Z87.442 Personal history of urinary calculi; F17.200 Nicotine dependence, unspecified, uncomplicated; Z91.030 Bee allergy status; Z79.899 Other long term (current) drug therapy
CPT/HCPCS: 96374; 96375; 99283-25; A9270; J0780; J1200; J1885; J2405; J7121